=== PATIENT | male | born 1935 | race Caucasian/White ===

== ENCOUNTER → 2016-08-07 | Outpatient (CLI) | payer OTHER ==
[~2016-08-07] MED LIST: ACET-1311 PO; ALBU1AER9 INH; ASPI81TA28 PO; FLM4 PO; GUAI100S6 PO; PRAV20TA PO; TPRSR/25 PO
[2016-08-07 12:48] LABS: ESTIMATED AVERAGE GLUCOSE 103 mg/dl; HA1C FLAG Normal (Normal)
[2016-08-07 12:49] LABS: ALT/SGPT 19 U/L (12-78); BLOOD UREA NITROGEN 20 mg/dl (7-18); BUN/CREATININE RATIO 21.4 (10-20); CALCIUM 9.1 mg/dl (8.5-10.1); CARBON DIOXIDE 30 mmol/L (21-32); CHLORIDE 107 mmol/L (98-107); CHOLESTEROL 111 mg/dl (0-200); CREATININE 0.93 mg/dl (0.60-1.40); GLUCOSE 99 mg/dl (70-99); POTASSIUM 4.1 mmol/L (3.5-5.1); SODIUM 143 mmol/L (136-145)
[2016-08-07 12:52] LABS: ALB/GLOB RATIO 1.1 (0.9-2); ALKALINE PHOSPHATASE 77 U/L (45-117); AST/SGOT 19 U/L (15-37); CHOLESTEROL/HDL RATIO 2.3; HDL CHOLESTEROL 48 mg/dl; LDL CHOLESTEROL CALCULATED 50 mg/dl; TRIGLYCERIDES 63 mg/dl (0-150); VERY LOW DENSITY LIPOPROT CALC 13 mg/dl
== END | disposition home or self-care (01) ==
LOC: C.LABPVFM 08:27
PROVIDERS: ATTEND Family Medicine
DX: I10 Essential (primary) hypertension (principal); I71.9 Aortic aneurysm of unspecified site, without rupture; I42.9 Cardiomyopathy, unspecified; Z79.899 Other long term (current) drug therapy; Z13.1 Encounter for screening for diabetes mellitus

== ENCOUNTER → 2016-11-08 | Outpatient (CLI) | payer OTHER | END | disposition home or self-care (01) | LOC: C.LABPVFM 08:45 | PROVIDERS: ATTEND Urology | DX: R97.20 Elevated prostate specific antigen [PSA] (principal); C61 Malignant neoplasm of prostate ==

== ENCOUNTER → 2017-01-29 | Outpatient (CLI) | payer OTHER ==
[2017-01-29 13:07] LABS: ALT/SGPT 19 U/L (12-78); AST/SGOT 21 U/L (15-37); BLOOD UREA NITROGEN 19 mg/dl (7-18); CALCIUM 9.1 mg/dl (8.5-10.1); CARBON DIOXIDE 28 mmol/L (21-32); CHLORIDE 108 mmol/L (98-107); GLUCOSE 104 mg/dl (70-99); POTASSIUM 4.3 mmol/L (3.5-5.1); SODIUM 141 mmol/L (136-145)
[2017-01-29 13:11] LABS: ALB/GLOB RATIO 1.1 (0.9-2); ALKALINE PHOSPHATASE 73 U/L (45-117); CHOLESTEROL 99 mg/dl (0-200); CHOLESTEROL/HDL RATIO 2.5; HDL CHOLESTEROL 39 mg/dl; LDL CHOLESTEROL CALCULATED 37 mg/dl; TRIGLYCERIDES 114 mg/dl (0-150); VERY LOW DENSITY LIPOPROT CALC 23 mg/dl
== END | disposition home or self-care (01) ==
LOC: C.LABPVFM 08:59
PROVIDERS: ATTEND Family Medicine
DX: I10 Essential (primary) hypertension (principal); E78.5 Hyperlipidemia, unspecified

== ENCOUNTER → 2017-04-11 | Outpatient (CLI) | payer OTHER ==
[2017-04-11 12:56] VITALS: BP 138/68; PULSE 58; TEMP 37; O2SAT 98
--- NOTE | 2017-04-11 16:53 | Radiation Oncology Follow-Up ---
Radiation Oncology Follow-Up Date of Visit Apr 11, 2017. Reason For Visit Annual follow-up Radiation Completion Date Seed Implant 11/17/14, IMRT 12/24/14, ADT Diagnosis (1) Prostate cancer Status: Resolved Onset Date: 03/06/2014 Location: left lobe of the prostate Histology Subtype: adenocarcinoma Stage: ll (B) Permanent Comment: Lower urinary tract symptoms, rising PSA to 10.9 Status post completion of biopsies revealing adenocarcinoma the prostate on [place] 5+4 Initiation of hormonal suppression 04/16/2014 Status post prostate seed implant 11/17/2014 received 7500 cGy Hospitalization for urosepsis Urinary retention requiring self catheterization Status post completion of radiation therapy with IMRT IGRT 12/24/2014 received 5180 cGy Last Edited By: Kenia Anderson on Feb 26, 2015 11:24 Interim History He has been doing well from urinary standpoint. He gave an AUA score of 5. Last year he gave a score of 7. He completed and expanded prostate cancer index composite for clinical practice and gave a score of 0 of 12 in urinary incontinence symptoms. He gave a score of one of 12 in urinary irritation symptoms. He gave a score of 4 of 12 bowel symptoms. He gave a score of 8 of 12 and sexual symptoms. He gave a score of one of 12 and hormonal vitality symptoms. His total was 14 of 60. He takes Flomax once daily. He has been taking this in the morning. Allergies Coded Allergies: No Known Allergies (Verified , 11/17/14) Home Medications Scheduled Aspirin (Aspirin Ec), 81 MG PO DAILY Metoprolol Succinate (Metoprolol Succinate ER), 12.5 MG PO AM Pravastatin (Pravachol ), 40 MG PO DAILY Tamsulosin HCl (Tamsulosin HCl), 0.4 MG PO DAILY Scheduled PRN Acetaminophen (Tylenol), 650 MG PO Q4H PRN for Pain Albuterol Sulfate (Proair Hfa), 1 PUFFS INH QID PRN for SOB/Wheezing Guaifenesin-Codeine (Guaifenesin/Codeine), 5 ML PO Q4 PRN for Cough Review of Systems Gastrointestinal: Symptoms: WNL, Constipation GI Comments: Chronic Constipation - Dulcolax PRN Oral: Symptoms: No Problems Respiratory: Symptoms: WNL, SOB With Exertion Other Respiratory: THOMAS (stairs) Urinary: Symptoms: Nocturia Comments: Nocturia x 3, See AUA & EPIC Skin: Symptoms: No Problems Physical Exam Vital Signs Date Time Temp Pulse Resp B/P (MAP) Pulse Ox O2 Delivery O2 Flow Rate FiO2 04/11/17 12:56 37.0 58 16 138/68 98 Fatigue: None General Appearance: no apparent distress Eyes: normal inspection, EOMI ENT: normal ENT inspection, hearing grossly normal Respiratory/Chest: lungs clear, no respiratory distress, no accessory muscle use Cardiovascular: regular rate, rhythm, no gallop, no murmur Abdomen: non tender, soft Anal / Rectum: Normal sphincter tone. Prostate consistent with seed implant. No rectal masses no rectal bleeding. Extremities: no pedal edema Neurologic/Psychiatric: no motor/sensory deficits, alert, normal mood/affect Skin: warm/dry Pain Management Pain Duration: comes and goes Side: Mid Pain Location: Lower Back Patient Preferred Pain Scale: 0 - 10 Pain Rating (0-10): 0 Pain Management Plan He denies pain therefore does not require pain management. Laboratory Studies Test 01/29/17 09:05 04/11/17 13:16 Sodium Level 141 mmol/L (136-145) Potassium Level 4.3 mmol/L (3.5-5.1) Chloride Level 108 mmol/L (98-107) Carbon Dioxide Level 28 mmol/L (21-32) Anion Gap 5.0 mmol/L (3-11) Blood Urea Nitrogen 19 mg/dl (7-18) Creatinine 1.10 mg/dl (0.60-1.40) Estimated GFR () 73.1 Estimated GFR (Non- 63.1 BUN/Creatinine Ratio 17.0 (10-20) Random Glucose 104 mg/dl (70-99) Calcium Level 9.1 mg/dl (8.5-10.1) Total Bilirubin 0.5 mg/dl (0.2-1) Aspartate Amino Transferase (AST) 21 U/L (15-37) Alanine Aminotransferase (ALT) 19 U/L (12-78) Alkaline Phosphatase 73 U/L (45-117) Total Protein 7.1 gm/dl (6.4-8.2) Albumin 3.7 gm/dl (3.4-5.0) Globulin 3.4 gm/dl (2.5-4.0) Albumin/Globulin Ratio 1.1 (0.9-2) Triglycerides Level 114 mg/dl (0-150) Cholesterol Level 99 mg/dl (0-200) HDL Cholesterol 39 mg/dl LDL Cholesterol, Calculated 37 mg/dl VLDL Cholesterol, Calculated 23 mg/dl Cholesterol/HDL Ratio 2.5 Prostate Specific Antigen < 0.010 ng/ml (0.000-4.000) Assessment & Plan PSA was drawn today prior to examination. He'll be notified as to results. We discussed the Flomax. I've asked him to take this after supper. This may help to improve absorption and have a better affect on his urinary symptoms. Because of the 2 years of hormonal suppression I have recommended that he have a DEXA scan. He previously had a scan in 2013. I've asked him to make an appointment with Dr. Lujan in 6 months. He'll have a recheck PSA at that time. We asked him to return to our office in 1 year. He may call if he has any questions or concerns. Total Time In Follow-Up I spent 20 minutes speaking to the patient performing examination. I spent 15 minutes reviewing information in completing this note. Copy To Wilian Raya M.D.; Crow Lujan MD
== END | disposition home or self-care (01) ==
LOC: C.ONC 12:43
PROVIDERS: ATTEND Physician Assistant Medical
DX: Z08 Encounter for follow-up examination after completed treatment for malignant neoplasm (principal); Z92.3 Personal history of irradiation; Z85.46 Personal history of malignant neoplasm of prostate

== ENCOUNTER → 2017-04-17 | Outpatient (CLI) | payer OTHER | END | disposition home or self-care (01) | LOC: C.MAMM 15:02 | PROVIDERS: ATTEND Physician Assistant Medical | DX: M85.80 Other specified disorders of bone density and structure, unspecified site (principal) ==

== ENCOUNTER → 2017-08-07 | Outpatient (CLI) | payer OTHER ==
[2017-08-07 13:18] LABS: ALBUMIN 3.7 gm/dl (3.4-5.0); ALT/SGPT 24 U/L (12-78); AST/SGOT 24 U/L (15-37); BLOOD UREA NITROGEN 24 mg/dl (7-18); CARBON DIOXIDE 30 mmol/L (21-32); GLUCOSE 102 mg/dl (70-99); POTASSIUM 4.2 mmol/L (3.5-5.1); SODIUM 140 mmol/L (136-145)
[2017-08-07 13:21] LABS: ALKALINE PHOSPHATASE 74 U/L (45-117); CHOLESTEROL 95 mg/dl (0-200); LDL CHOLESTEROL CALCULATED 40 mg/dl; TOTAL PROTEIN 7.3 gm/dl (6.4-8.2)
== END | disposition home or self-care (01) ==
LOC: C.LABPVFM 09:55
PROVIDERS: ATTEND Family Medicine
DX: I10 Essential (primary) hypertension (principal); J44.9 Chronic obstructive pulmonary disease, unspecified; I71.9 Aortic aneurysm of unspecified site, without rupture; R21 Rash and other nonspecific skin eruption; E78.5 Hyperlipidemia, unspecified; M81.0 Age-related osteoporosis without current pathological fracture

== ENCOUNTER 2021-09-22 14:59 | Inpatient (IN) ==
[2021-09-22] MEDS ORDERED: methylPREDNISolone 125 MG/2 ML VIAL IV STA (15:36)
[2021-09-22] MEDS ORDERED: ALBUT/IPRATROP 3MG/0.5MG NEB 3 ML VIAL NEB STA (15:36)
[2021-09-22] MEDS ORDERED: guaiFENesin 600 MG TABCR PO STA (15:36)
[2021-09-22 16:11] LABS: INR 1.3 (0.9-1.1); Prothrombin Time 13.5 Seconds (9.0-12.0)
--- NOTE | 2021-09-22 16:26 | XRay Report ---
XR chest 1V portable CLINICAL HISTORY: Atypical chest pain TECHNIQUE: Single frontal radiograph of the chest was obtained. Comparison: Comparison is made to chest radiograph 11/30/2018 FINDINGS: No lines and tubes are seen. Calcified aortic knob is seen. The lungs are clear. No evidence of pleur al effusion or pneumothorax. Degenerative changes are seen in the thoracic spine. Irregularities in t he left ribs were present in the prior exam and are favored to be chronic, correlation with point ten derness is recommended. IMPRESSION: No acute chest disease. ACT 112: Negative or not required by law. Electronically signed by: Alec Bradley M.D. 09/22/2021 4:25 PM
[2021-09-22 16:29] LABS: Albumin Globulin Ratio 1.7 (0.9-2); BUN Creatinine Ratio 27.3 (10-20); Bilirubin,Total 0.7 mg/dl (0.2-1.0); Creatinine Clr Calc Pharmacy 42.7 ml/min; Est GFR (African American) 70.6 ml/min; Est GFR (Non-African American) 60.9 ml/min; Globulin 2.3 gm/dl (2.5-4.0); Magnesium 2.1 mg/dl (1.7-2.4); Potassium 4.4 mmol/L (3.5-5.1); Total Protein 6.3 gm/dl (6.0-8.3)
[2021-09-22 17:08] LABS: Influenza A virus by PCR Negative (Neg); Influenza B virus by PCR Negative (Neg); RSV by PCR Negative (Neg)
[2021-09-22 17:12] LABS: Basophils # (auto) 0.01 K/uL (0-0.2); Basophils % (auto) 0.3 %; Eosinophils # (auto) 0.01 K/uL (0-0.5); Eosinophils % (auto) 0.3 %; Hematocrit (blood only) 33.7 % (42-52); Hemoglobin 11.2 g/dL (14.0-18.0); Immature Granulocytes # (auto) 0.01 K/uL (0.00-0.02); Immature Granulocytes % (auto) 0.3 %; Lymphocytes # (auto) 0.65 K/uL (1.2-3.4); Lymphocytes % (auto) 20.4 %; Mean Corpuscular Hemoglobin 30.2 pg (25-34); Mean Corpuscular Hgb Conc 33.2 g/dL (32-36); Mean Corpuscular Volume 90.8 fL (80-100); Mean Platelet Volume 10.6 fL (7.4-10.4); Monocytes # (auto) 0.79 K/uL (0.11-0.59); Monocytes % (auto) 24.8 %; Neutrophils # (auto) 1.72 K/uL (1.4-6.5); Neutrophils % (auto) 53.9 %; Platelet Count 103 K/uL (130-400); RDW Coefficient of Variation 13.5 % (11.5-14.5); RDW Standard Deviation 45.1 fL (36.4-46.3); Red Blood Count 3.71 M/uL (4.7-6.1); White Blood Count 3.19 K/uL (4.8-10.8)
[2021-09-22 17:24] LABS: SARS CoV2 RNA(COVID-19) InHosp POSITIVE (Negative)
[2021-09-22] MEDS ORDERED: ACETAMINOPHEN 1,000 MG/100 ML VIAL IV STA (19:51)
[2021-09-22] MEDS ORDERED: SODIUM CHLORIDE 0.9% 500 ML IV ONE (19:51)
--- NOTE | 2021-09-22 20:45 | History & Physical Report ---
Date of Service September 22, 2021 Assessment & Plan (1) Viral upper respiratory tract infection: Plan: 86-year-old man with medical history of hypertension, osteoporosis, CAD, hyperlipidemia, COPD, prostate cancer, and AAA, who presents today with chief complaint of fatigue and general malaise (afebrile) x24 hours in the setting of a COVID-19 outbreak. Viral upper respiratory tract infection -Status post DuoNebs, Solu-Medrol, guaifenesin, Tylenol. COVID-19 positive. Blood cultures pending. * Admit to Obs * IV Solu-Medrol 20 mg twice daily * PT/OT eval/treat * Supportive management: Maintenance IVF Chronic problems-hypertension, osteoporosis, CAD, hyperlipidemia, COPD, prostate cancer, AAA: Continue home regimen. Code: Dispo: Med-Surg FEN/GI: IV NSS, regular diet DVT Prophylaxis: Lovenox 40 mg q24h PT/OT: Ordered (2) COPD (chronic obstructive pulmonary disease): History of Present Illness Chief Complaint: Viral upper respiratory infection Primary Care Provider: [facility] Javier Herrera is a 86-year-old man with medical history of hypertension, osteoporosis, CAD, hyperlipidemia, COPD, prostate cancer, and AAA, who presents today with chief complaint of fatigue and general malaise x24 hours. Patient lives at [facility], where there has been a recent COVID-19 outbreak. In addition to malaise, patient had some confusion. Patient was never hypoxic. ED course: Vitals were mostly stable and within normal limits. However, patient was found to be wheezing, and he received DuoNebs, Solu-Medrol, in addition to guaifenesin, and Tylenol for supportive management. Allergies Allergy/AdvReac Type Severity Reaction Status Date / Time No Known Drug Allergies Allergy Verified 09/22/21 21:38 Home Medications Medication Instructions Recorded Confirmed Type aspirin 81 mg tablet,delayed 81 mg PO QAM 08/06/18 09/22/21 History release acetaminophen 500 mg tablet 500 mg PO Q4H PRN 09/26/18 09/22/21 History pravastatin 40 mg tablet 40 mg PO HS #90 tab 12/02/18 09/22/21 Rx cholecalciferol (vitamin D3) 50 50 mcg PO QAM 09/22/21 09/22/21 History mcg (2,000 unit) tablet (Vitamin D3) ferrous sulfate 325 mg (65 mg 325 mg PO BID 09/22/21 09/22/21 History iron) tablet loperamide 2 mg capsule 2 mg PO Q12 PRN 09/22/21 09/22/21 History lorazepam 0.5 mg tablet 0.25 mg PO BID 09/22/21 09/22/21 History lorazepam 0.5 mg tablet 0.5 mg SUBLINGUAL Q4H PRN 09/22/21 09/22/21 History metoprolol succinate 25 mg 12.5 mg PO QAM 09/22/21 09/22/21 History tablet,extended release 24 hr multivitamin-iron 9 mg-folic acid 1 tab PO QAM 09/22/21 09/22/21 History 400 mcg-calcium and minerals tablet (Therems-M) psyllium husk (with sugar) 3 1 tbsp PO QAM 09/22/21 09/22/21 History gram/7 gram oral powder (Metamucil (with sugar)) risedronate 35 mg tablet (Actonel) 35 mg PO WK 09/22/21 09/22/21 History tamsulosin 0.4 mg capsule 0.4 mg PO DAILY@1700 09/22/21 09/22/21 History Past Med/Surg History Medical History Bilateral lower extremity edema Ground glass opacity present on imaging of lung History of Clostridium difficile colitis Prostate cancer (03/06/14) "Lower urinary tract symptoms, rising PSA to 10.9 Status post completion of biopsies revealing adenocarcinoma the prostate on 03/06/2014 [place] 5+4 Initiation of hormonal suppression 04/16/2014 Status post prostate seed implant 11/17/2014 received 7500 cGy Hospitalization for urosepsis Urinary retention requiring self catheterization Status post completion of radiation therapy with IMRT IGRT 12/24/2014 received 5180 cGy" On 12/31/14 11:03 Kenia Anderson wrote "Lower urinary tract symptoms, rising PSA to 10.9 Status post completion of biopsies revealing adenocarcinoma the prostate on 03/06/2014 [place] 5+4 Initiation of hormonal suppression Status post prostate seed implant 11/17/2014 Hospitalization for urosepsis Urinary retention requiring self catheterization" Prostate cancer Sepsis due to urinary tract infection Surgical History History of hip surgery left, 08/07/2018 S/P AAA repair 2015 S/P cholecystectomy Family History Unknown Coronary heart disease Sister Breast cancer Other Myocardial infarction Denies family history of Ovarian cancer Colorectal cancer Social History Smoking Status: Former smoker Cigarettes Per Day: 50 pack year history; Second Hand Exposure: No; Hx Alcohol Use: No Hx Substance Use: No Preferred Language: Bahamian Communication Ability: Effective Visual Impairment: No Limitations Hearing Ability: Use of Hearing Aid [place] Washing System Operator Required: No Beliefs That Will Affect Care: None marital status: / Current Living Situation: Personal Care Facility Current Living Situation Comment: [place] current occupational status: retired Other Information That Helps Us Care for You: No Feels Safe at Home: Yes Safety Concerns: Feels Safe At This Time Childhood Exposure to Second-Hand Smoke: Yes Dental Care, Regularly: Yes Physical Activity Frequency: 3-4 Times per Week Assistive Devices: Walker Review of Systems Review of Systems: All systems reviewed & are unremarkable except as noted in HPI & below Physical Exam Physical Exam: General: Patient is asleep. When awake, patient appears clearly fatigued and disinterested/not-redirectable. HEENT: Dry oropharynx; no lymphadenopathy; poor dentition. CV: Regular rate and rhythm. Normal S1 and S2. No murmurs gallops or rubs. No pedal edema. Pulmonary: Lungs are clear to auscultation bilaterally. No crackles, rhonchi, or wheezes. Results & Data Results & Data ([facility]) Vital Signs (Past 12 Hours) Vital Signs Temp Pulse Pulse Resp BP BP Pulse Ox 09/22/21 19:00 59 L 20 170/82 H 95 09/22/21 17:00 70 21 140/70 95 09/22/21 15:14 95 09/22/21 15:10 36.9 C 69 23 148/69 H 96 Supervising Physician Co-Signing Physician Notes Attending addendum: I have physically seen this patient, have supervised the medical residents activities, and agree with the H&P unless as otherwise noted. Assessment and Plan: Upper respiratory infection/COVID-19 positive Duonebs every 4 hours while awake and every 2 hours when necessary. Methylprednisolone 20 mg IV twice daily Guaifenesin extended release 1200 mg p.o. twice daily Acetaminophen 650 mg p.o. every 6 hours as needed mild pain or fever Chest x-ray is not suggestive of COVID-19 infection Remaining orders and notations as noted Resident Activity Tracking Resident Involvement: Resident Care Provided Care Provided: Adult Hospital Medicine (1) COPD (chronic obstructive pulmonary disease) COPD type: unspecified COPD Qualified Code(s): J44.9 - Chronic obstructive pulmonary disease, unspecified
--- NOTE | 2021-09-22 21:18 | Emergency Department Note ---
Impression & Plan COVID-19, COPD exacerbation, Weakness ED Provider Note NAME: MARLENE DOUGLAS AGE: 86 SEX: M ARRIVES VIA: Ambulance INFORMANT: Patient, EMS ED PROVIDER(S): Nathanael Paul MD CHIEF COMPLAINT: SOB, weakness PLAN: Disposition: Admit MEDICAL DECISION MAKING: The patient is a pleasant 86-year-old gentleman with a past medical history of COPD, HTN, HLD, BPH who presents to the emergency department from his personal nursing home at [facility] for worsening cough, congestion, malaise and intermittent confusion over the past 24 hours. There is a current outbreak of COVID-19 at his facility. On arrival the patient is uncomfortable no acute distress, afebrile with stable vital signs. He does appear clinically dry. He has bilateral rhonchi and whee zes of the lower lung goldstein. He does have thick productive yellow sputum. EKG without overt acute ischemia. Chest x-ray negative for acute cardiopulmonary process WBC 3.1K nonspecific. H/H 11.2/33.7 decreased from recent though proximate to prior range of values. Platelets 103K decreased from recent. Chemistry without metabolic acidosis. BUN/> 20 consistent with the patient's clinically dry appearance. High-sensitivity troponin 7.2, within normal limits. Lipase not elevated. Procalcitonin is not elevated. Patient's COVID-19 PCR was positive. Influenza and RSV PCR's were negative. Upon reevaluation the patient did appear to breathe better following Solu-Medrol, guaifenesin and DuoNeb for the patient's bronchospasm in the setting of a COPD. However still with significant malaise/weakness. Thus, reasonable to admit the patient for further supportive care. Triage Nursing notes reviewed and agree them. Prior medical records reviewed Vital Signs: reviewed and remarkable for no significant abnormalities Differential diagnosis: Reactive airway disease, pneumonia, pneumothorax, COPD, CHF, infections, cardiac ischemia, pulmonary embolism, musculoskeletal, gastrointestinal, as well as other pathologies. ER treatment provided: See below. Diagnostics interpreted by me: ECG: Normal sinus rhythm, 60 bpm, no ectopy, no overt ST elevation or depression, QTC 404, QRS 92. Cardiac Monitoring: An order for continuous cardiac monitoring was placed and demonstrated Normal sinus rhythm, 60 bpm, no ectopy. Laboratory studies: See below Imaging studies: See below Consultation(s): Case was discussed with Dr. Gonsales [facility] admitting resident with RAZIA Kaye hospitalist, who will evaluate the patient for admission. HPI: The patient is a pleasant 86-year-old gentleman with a past medical history of COPD, HTN, HLD, BPH who presents to the emergency department from his personal nursing home at [facility] for worsening cough, congestion, malaise and intermittent confusion over the past 24 hours. There is a current outbreak of COVID-19 at his facility. ROS: See above HPI for pertinent positives & negatives. A total of 10 systems reviewed and were otherwise negative. VITALS:See Below PHYSICAL EXAMINATION: GENERAL: Awake, alert, ill-appearing, in no distress HENT: Normocephalic, atraumatic. Oropharynx with dry mucous membranes and otherwise unremarkable. EYES: Normal conjunctiva. Sclera non-icteric. NECK: Supple. No nuchal rigidity. FROM. No JVD. RESPIRATORY: Bilateral rhonchi and wheezes of the lower lung goldstein CARDIAC: Regular rate, normal rhythm. Extremities warm and well perfused. Pulses equal. ABDOMEN: Soft, non-distended. No tenderness to palpation. No rebound or guarding. No masses. RECTAL: Deferred. MUSCULOSKELETAL: Chest examination reveals no tenderness. The back is symmetrical on inspection without obvious abnormality. There is no CVA tenderness to palpation. No joint edema. LOWER EXTREMITIES: Calves are equal size bilaterally and non-tender. No edema. No discoloration. NEURO: Normal sensorium. No sensory or motor deficits noted. SKIN: No rash or jaundice noted. Nathanael Paul MD Past Med/Surg History Medical History Bilateral lower extremity edema Ground glass opacity present on imaging of lung History of Clostridium difficile colitis Prostate cancer (03/06/14) "Lower urinary tract symptoms, rising PSA to 10.9 Status post completion of biopsies revealing adenocarcinoma the prostate on 03/06/2014 [place] 5+4 Initiation of hormonal suppression 04/16/2014 Status post prostate seed implant 11/17/2014 received 7500 cGy Hospitalization for urosepsis Urinary retention requiring self catheterization Status post completion of radiation therapy with IMRT IGRT 12/24/2014 received 5180 cGy" On 12/31/14 11:03 Kenia Anderson wrote "Lower urinary tract symptoms, rising PSA to 10.9 Status post completion of biopsies revealing adenocarcinoma the prostate on 03/06/2014 [place] 5+4 Initiation of hormonal suppression Status post prostate seed implant 11/17/2014 Hospitalization for urosepsis Urinary retention requiring self catheterization" Prostate cancer Sepsis due to urinary tract infection Surgical History History of hip surgery left, 08/07/2018 S/P AAA repair 2015 S/P cholecystectomy Family History Unknown Coronary heart disease Sister Breast cancer Other Myocardial infarction Denies family history of Ovarian cancer Colorectal cancer Social History Smoking Status: Former smoker Cigarettes Per Day: 50 pack year history; Second Hand Exposure: No; Hx Alcohol Use: No Hx Substance Use: No Preferred Language: [place] Communication Ability: Effective Visual Impairment: No Limitations Hearing Ability: Use of Hearing Aid Case Loader Operator Required: No Beliefs That Will Affect Care: None marital status: / Current Living Situation: Alone current occupational status: retired Feels Safe at Home: Yes Childhood Exposure to Second-Hand Smoke: Yes Dental Care, Regularly: Yes Physical Activity Frequency: 3-4 Times per Week Assistive Devices: Denture - Lower and Glasses Allergies Allergies Allergy/AdvReac Type Severity Reaction Status Date / Time No Known Drug Allergies Allergy Verified 09/22/21 21:38 Home Meds Home Medications Medication Instructions Recorded Confirmed aspirin 81 mg tablet,delayed 81 mg PO QAM 08/06/18 09/22/21 release acetaminophen 500 mg tablet 500 mg PO Q4H PRN 09/26/18 09/22/21 cholecalciferol (vitamin D3) 50 50 mcg PO QAM 09/22/21 09/22/21 mcg (2,000 unit) tablet (Vitamin D3) ferrous sulfate 325 mg (65 mg 325 mg PO BID 09/22/21 09/22/21 iron) tablet loperamide 2 mg capsule 2 mg PO Q12 PRN 09/22/21 09/22/21 lorazepam 0.5 mg tablet 0.25 mg PO BID 09/22/21 09/22/21 lorazepam 0.5 mg tablet 0.5 mg SUBLINGUAL Q4H PRN 09/22/21 09/22/21 metoprolol succinate 25 mg 12.5 mg PO QAM 09/22/21 09/22/21 tablet,extended release 24 hr multivitamin-iron 9 mg-folic acid 1 tab PO QAM 09/22/21 09/22/21 400 mcg-calcium and minerals tablet (Therems-M) psyllium husk (with sugar) 3 1 tbsp PO QAM 09/22/21 09/22/21 gram/7 gram oral powder (Metamucil (with sugar)) risedronate 35 mg tablet (Actonel) 35 mg PO WK 09/22/21 09/22/21 tamsulosin 0.4 mg capsule 0.4 mg PO DAILY@1700 09/22/21 09/22/21 Previous Rx's Medication Instructions Recorded pravastatin 40 mg tablet 40 mg PO HS #90 tab 12/02/18 Results & Data (ED) Vital Signs Vital Signs - 24 hr 09/22/21 15:10 09/22/21 15:14 09/22/21 17:00 Temperature 36.9 C Temperature Source Oral Pulse Rate 69 Pulse Rate [Apical] 70 Pulse Rhythm [Apical] Regular Pulse Strength [Apical] Normal Respiratory Rate 23 21 Respiratory Effort / Characteristics Non-Labored Respiratory Depth Normal Respiratory Pattern Regular Blood Pressure 148/69 H Blood Pressure [Right Arm] 140/70 Blood Pressure Mean 95 Blood Pressure Mean [Right Arm] 93 Pulse Oximetry 96 95 95 Oxygen Delivery Method Room Air Room Air Room Air Sepsis Recent Fever Within 48 Hours No Sepsis New/Unexplained Change in Mental Status Yes Sepsis Action Taken by Nursing No Action Required 09/22/21 19:00 Temperature Temperature Source Pulse Rate Pulse Rate [Apical] 59 L Pulse Rhythm [Apical] Regular Pulse Strength [Apical] Respiratory Rate 20 Respiratory Effort / Characteristics Non-Labored Respiratory Depth Normal Respiratory Pattern Blood Pressure Blood Pressure [Right Arm] 170/82 H Blood Pressure Mean Blood Pressure Mean [Right Arm] 111 Pulse Oximetry 95 Oxygen Delivery Method Room Air Sepsis Recent Fever Within 48 Hours Sepsis New/Unexplained Change in Mental Status Sepsis Action Taken by Nursing Laboratory Data Attestation: I reviewed the patient's lab results. Result diagrams: 09/22/21 16:44 09/22/21 15:30 Lab Results 09/22/21 09/22/21 09/22/21 Range/Units 15:30 15:30 15:30 WBC Cancelled RBC Cancelled Hgb Cancelled Hct Cancelled MCV Cancelled MCH Cancelled MCHC Cancelled RDW Std Deviation Cancelled RDW Coeff of Livier Cancelled Plt Count Cancelled MPV Cancelled Immature Gran % (Auto) Cancelled Neut % (Auto) Cancelled Lymph % (Auto) Cancelled [place] % (Auto) Cancelled Eos % (Auto) Cancelled Baso % (Auto) Cancelled Neut # (Auto) Cancelled Lymph # (Auto) Cancelled [place] # (Auto) Cancelled Eos # (Auto) Cancelled Baso # (Auto) Cancelled Immature Gran # (Auto) Cancelled Absolute Nucleated RBC Cancelled Nucleated RBC % (auto) Cancelled Neutrophils % (Manual) Cancelled Band Neutrophils % Cancelled Lymphocytes % (Manual) Cancelled Prolymphocyte % Cancelled Reactive Lymphs % (Man) Cancelled Monocytes % (Manual) Cancelled Eosinophils % (Manual) Cancelled Basophils % (Manual) Cancelled Metamyelocytes % (Man) Cancelled Myelocytes % (Man) Cancelled Promyelocytes % (Man) Cancelled Blast Cells % (Manual) Cancelled Plasma Cell % (Manual) Cancelled Other Cells % Cancelled Nucleated RBC % Cancelled Neutrophils # (Manual) Cancelled Band Neutrophils # Cancelled Total Absolute Neuts Cancelled Lymphocytes # (Manual) Cancelled Prolymphocyte # Cancelled Reactive Lymphs # Cancelled Total Abs Lymphocytes Cancelled Monocytes # (Manual) Cancelled Eosinophils # (Manual) Cancelled Basophils # (Manual) Cancelled Metamyelocytes # (Man) Cancelled Myelocytes # (Manual) Cancelled Promyelocytes # (Man) Cancelled Blast Cells # (Man) Cancelled Plasma Cell # (Manual) Cancelled Other Cells # Cancelled Nucleated RBCs # (Man) Cancelled Hypersegmented Neuts Cancelled Hyposegmented Neuts Cancelled Hypogranular Neuts Cancelled Large Granular Lymphs Cancelled # Lrg Granular Lymphs Cancelled Hairy Cells Cancelled Smudge Cells Cancelled Toxic Granulation Cancelled Toxic Vacuolation Cancelled Dohle Bodies Cancelled Angel Rods Cancelled Platelet Estimate Cancelled Hypogranular Platelets Cancelled Clumped Platelets Cancelled Giant Platelets Cancelled Platelet Satelliting Cancelled RBC Morphology Cancelled Polychromasia Cancelled Hypochromasia Cancelled Poikilocytosis Cancelled Basophilic Stippling Cancelled Anisocytosis Cancelled Microcytosis Cancelled Macrocytosis Cancelled Spherocytes Cancelled Pappenheimer Bodies Cancelled Sickle Cells Cancelled Target Cells Cancelled Tear Drop Cells Cancelled Ovalocytes Cancelled Stomatocytes Cancelled Chandler-Florala Bodies Cancelled Echinocytes Cancelled Acanthocytes (Spur) Cancelled Rouleaux Cancelled RBC Agglutinates Cancelled Schistocytes Cancelled RBC Morph Comment Cancelled Sezary Cell Cancelled PT (9.0-12.0) Seconds INR (0.9-1.1) Sodium 135 L (136-145) mmol/L Potassium 4.4 (3.5-5.1) mmol/L Chloride 101 (98-107) mmol/L Carbon Dioxide 28 (21-32) mmol/L Anion Gap 6 (3-11) BUN 30 H (6-23) mg/dl Creatinine 1.10 (0.6-1.4) mg/dl Est Cr Clr Drug Dosing 42.7 ml/min Est GFR ( Amer) 70.6 ml/min Est GFR (Non-Af Amer) 60.9 ml/min BUN/Creatinine Ratio 27.3 H (10-20) Glucose 93 (70-99(Fasting)) mg/dl Lactate (0.4-2.0) mmol/L Calcium 9.0 (8.5-10.1) mg/dl Magnesium 2.1 (1.7-2.4) mg/dl Total Bilirubin 0.7 (0.2-1.0) mg/dl AST 28 (13-39) U/L ALT 12 (7-52) U/L Alkaline Phosphatase 34 (34-104) U/L Troponin I High Sens 7.2 (0-20) pg/ml B-Natriuretic Peptide Total Protein 6.3 (6.0-8.3) gm/dl Albumin 4.0 (3.4-5.0) gm/dl Globulin 2.3 L (2.5-4.0) gm/dl Albumin/Globulin Ratio 1.7 (0.9-2) Lipase 13 (11-82) U/L Procalcitonin (0-0.5) ng/ml SARS-CoV-2 (PCR) (Negative) Influenza Type A (PCR) (Neg) Influenza Type B (PCR) (Neg) RSV (RT-PCR) (Neg) 09/22/21 09/22/21 09/22/21 Range/Units 15:30 15:30 15:30 WBC RBC Hgb Hct MCV MCH MCHC RDW Std Deviation RDW Coeff of Livier Plt Count MPV Immature Gran % (Auto) Neut % (Auto) Lymph % (Auto) [place] % (Auto) Eos % (Auto) Baso % (Auto) Neut # (Auto) Lymph # (Auto) [place] # (Auto) Eos # (Auto) Baso # (Auto) Immature Gran # (Auto) Absolute Nucleated RBC Nucleated RBC % (auto) Neutrophils % (Manual) Band Neutrophils % Lymphocytes % (Manual) Prolymphocyte % Reactive Lymphs % (Man) Monocytes % (Manual) Eosinophils % (Manual) Basophils % (Manual) Metamyelocytes % (Man) Myelocytes % (Man) Promyelocytes % (Man) Blast Cells % (Manual) Plasma Cell % (Manual) Other Cells % Nucleated RBC % Neutrophils # (Manual) Band Neutrophils # Total Absolute Neuts Lymphocytes # (Manual) Prolymphocyte # Reactive Lymphs # Total Abs Lymphocytes Monocytes # (Manual) Eosinophils # (Manual) Basophils # (Manual) Metamyelocytes # (Man) Myelocytes # (Manual) Promyelocytes # (Man) Blast Cells # (Man) Plasma Cell # (Manual) Other Cells # Nucleated RBCs # (Man) Hypersegmented Neuts Hyposegmented Neuts Hypogranular Neuts Large Granular Lymphs # Lrg Granular Lymphs Hairy Cells Smudge Cells Toxic Granulation Toxic Vacuolation Dohle Bodies Angel Rods Platelet Estimate Hypogranular Platelets Clumped Platelets Giant Platelets Platelet Satelliting RBC Morphology Polychromasia Hypochromasia Poikilocytosis Basophilic Stippling Anisocytosis Microcytosis Macrocytosis Spherocytes Pappenheimer Bodies Sickle Cells Target Cells Tear Drop Cells Ovalocytes Stomatocytes Chandler-Florala Bodies Echinocytes Acanthocytes (Spur) Rouleaux RBC Agglutinates Schistocytes RBC Morph Comment Sezary Cell PT 13.5 H (9.0-12.0) Seconds INR 1.3 H (0.9-1.1) Sodium (136-145) mmol/L Potassium (3.5-5.1) mmol/L Chloride (98-107) mmol/L Carbon Dioxide (21-32) mmol/L Anion Gap (3-11) BUN (6-23) mg/dl Creatinine (0.6-1.4) mg/dl Est Cr Clr Drug Dosing ml/min Est GFR ( Amer) ml/min Est GFR (Non-Af Amer) ml/min BUN/Creatinine Ratio (10-20) Glucose (70-99(Fasting)) mg/dl Lactate (0.4-2.0) mmol/L Calcium (8.5-10.1) mg/dl Magnesium (1.7-2.4) mg/dl Total Bilirubin (0.2-1.0) mg/dl AST (13-39) U/L ALT (7-52) U/L Alkaline Phosphatase (34-104) U/L Troponin I High Sens (0-20) pg/ml B-Natriuretic Peptide Cancelled Total Protein (6.0-8.3) gm/dl Albumin (3.4-5.0) gm/dl Globulin (2.5-4.0) gm/dl Albumin/Globulin Ratio (0.9-2) Lipase (11-82) U/L Procalcitonin 0.07 (0-0.5) ng/ml SARS-CoV-2 (PCR) (Negative) Influenza Type A (PCR) (Neg) Influenza Type B (PCR) (Neg) RSV (RT-PCR) (Neg) 09/22/21 09/22/21 09/22/21 Range/Units 15:30 16:44 16:53 WBC 3.19 L RBC 3.71 L Hgb 11.2 L Hct 33.7 L MCV 90.8 MCH 30.2 MCHC 33.2 RDW Std Deviation 45.1 RDW Coeff of Livier 13.5 Plt Count 103 L MPV 10.6 H Immature Gran % (Auto) 0.3 Neut % (Auto) 53.9 Lymph % (Auto) 20.4 [place] % (Auto) 24.8 Eos % (Auto) 0.3 Baso % (Auto) 0.3 Neut # (Auto) 1.72 Lymph # (Auto) 0.65 L [place] # (Auto) 0.79 H Eos # (Auto) 0.01 Baso # (Auto) 0.01 Immature Gran # (Auto) 0.01 Absolute Nucleated RBC Nucleated RBC % (auto) Neutrophils % (Manual) Band Neutrophils % Lymphocytes % (Manual) Prolymphocyte % Reactive Lymphs % (Man) Monocytes % (Manual) Eosinophils % (Manual) Basophils % (Manual) Metamyelocytes % (Man) Myelocytes % (Man) Promyelocytes % (Man) Blast Cells % (Manual) Plasma Cell % (Manual) Other Cells % Nucleated RBC % Neutrophils # (Manual) Band Neutrophils # Total Absolute Neuts Lymphocytes # (Manual) Prolymphocyte # Reactive Lymphs # Total Abs Lymphocytes Monocytes # (Manual) Eosinophils # (Manual) Basophils # (Manual) Metamyelocytes # (Man) Myelocytes # (Manual) Promyelocytes # (Man) Blast Cells # (Man) Plasma Cell # (Manual) Other Cells # Nucleated RBCs # (Man) Hypersegmented Neuts Hyposegmented Neuts Hypogranular Neuts Large Granular Lymphs # Lrg Granular Lymphs Hairy Cells Smudge Cells Toxic Granulation Toxic Vacuolation Dohle Bodies Angel Rods Platelet Estimate Hypogranular Platelets Clumped Platelets Giant Platelets Platelet Satelliting RBC Morphology Polychromasia Hypochromasia Poikilocytosis Basophilic Stippling Anisocytosis Microcytosis Macrocytosis Spherocytes Pappenheimer Bodies Sickle Cells Target Cells Tear Drop Cells Ovalocytes Stomatocytes Chandler-Florala Bodies Echinocytes Acanthocytes (Spur) Rouleaux RBC Agglutinates Schistocytes RBC Morph Comment Sezary Cell PT (9.0-12.0) Seconds INR (0.9-1.1) Sodium (136-145) mmol/L Potassium (3.5-5.1) mmol/L Chloride (98-107) mmol/L Carbon Dioxide (21-32) mmol/L Anion Gap (3-11) BUN (6-23) mg/dl Creatinine (0.6-1.4) mg/dl Est Cr Clr Drug Dosing ml/min Est GFR ( Amer) ml/min Est GFR (Non-Af Amer) ml/min BUN/Creatinine Ratio (10-20) Glucose (70-99(Fasting)) mg/dl Lactate 1.0 (0.4-2.0) mmol/L Calcium (8.5-10.1) mg/dl Magnesium (1.7-2.4) mg/dl Total Bilirubin (0.2-1.0) mg/dl AST (13-39) U/L ALT (7-52) U/L Alkaline Phosphatase (34-104) U/L Troponin I High Sens (0-20) pg/ml B-Natriuretic Peptide Total Protein (6.0-8.3) gm/dl Albumin (3.4-5.0) gm/dl Globulin (2.5-4.0) gm/dl Albumin/Globulin Ratio (0.9-2) Lipase (11-82) U/L Procalcitonin (0-0.5) ng/ml SARS-CoV-2 (PCR) POSITIVE A* (Negative) Influenza Type A (PCR) Negative (Neg) Influenza Type B (PCR) Negative (Neg) RSV (RT-PCR) Negative (Neg) 09/22/21 Range/Units 16:53 WBC RBC Hgb Hct MCV MCH MCHC RDW Std Deviation RDW Coeff of Livier Plt Count MPV Immature Gran % (Auto) Neut % (Auto) Lymph % (Auto) [place] % (Auto) Eos % (Auto) Baso % (Auto) Neut # (Auto) Lymph # (Auto) [place] # (Auto) Eos # (Auto) Baso # (Auto) Immature Gran # (Auto) Absolute Nucleated RBC Nucleated RBC % (auto) Neutrophils % (Manual) Band Neutrophils % Lymphocytes % (Manual) Prolymphocyte % Reactive Lymphs % (Man) Monocytes % (Manual) Eosinophils % (Manual) Basophils % (Manual) Metamyelocytes % (Man) Myelocytes % (Man) Promyelocytes % (Man) Blast Cells % (Manual) Plasma Cell % (Manual) Other Cells % Nucleated RBC % Neutrophils # (Manual) Band Neutrophils # Total Absolute Neuts Lymphocytes # (Manual) Prolymphocyte # Reactive Lymphs # Total Abs Lymphocytes Monocytes # (Manual) Eosinophils # (Manual) Basophils # (Manual) Metamyelocytes # (Man) Myelocytes # (Manual) Promyelocytes # (Man) Blast Cells # (Man) Plasma Cell # (Manual) Other Cells # Nucleated RBCs # (Man) Hypersegmented Neuts Hyposegmented Neuts Hypogranular Neuts Large Granular Lymphs # Lrg Granular Lymphs Hairy Cells Smudge Cells Toxic Granulation Toxic Vacuolation Dohle Bodies Angel Rods Platelet Estimate Hypogranular Platelets Clumped Platelets Giant Platelets Platelet Satelliting RBC Morphology Polychromasia Hypochromasia Poikilocytosis Basophilic Stippling Anisocytosis Microcytosis Macrocytosis Spherocytes Pappenheimer Bodies Sickle Cells Target Cells Tear Drop Cells Ovalocytes Stomatocytes Chandler-Florala Bodies Echinocytes Acanthocytes (Spur) Rouleaux RBC Agglutinates Schistocytes RBC Morph Comment Sezary Cell PT (9.0-12.0) Seconds INR (0.9-1.1) Sodium (136-145) mmol/L Potassium (3.5-5.1) mmol/L Chloride (98-107) mmol/L Carbon Dioxide (21-32) mmol/L Anion Gap (3-11) BUN (6-23) mg/dl Creatinine (0.6-1.4) mg/dl Est Cr Clr Drug Dosing ml/min Est GFR ( Amer) ml/min Est GFR (Non-Af Amer) ml/min BUN/Creatinine Ratio (10-20) Glucose (70-99(Fasting)) mg/dl Lactate (0.4-2.0) mmol/L Calcium (8.5-10.1) mg/dl Magnesium (1.7-2.4) mg/dl Total Bilirubin (0.2-1.0) mg/dl AST (13-39) U/L ALT (7-52) U/L Alkaline Phosphatase (34-104) U/L Troponin I High Sens (0-20) pg/ml B-Natriuretic Peptide 71 Total Protein (6.0-8.3) gm/dl Albumin (3.4-5.0) gm/dl Globulin (2.5-4.0) gm/dl Albumin/Globulin Ratio (0.9-2) Lipase (11-82) U/L Procalcitonin (0-0.5) ng/ml SARS-CoV-2 (PCR) (Negative) Influenza Type A (PCR) (Neg) Influenza Type B (PCR) (Neg) RSV (RT-PCR) (Neg) Administered Medications Discontinued Medications Albuterol (Albut/Ipratrop 3mg/0.5mg Neb 3 Ml Vial) 3 ml NEB NOW STA; Protocol Stop: 09/22/21 15:37 Last Admin: 09/22/21 16:59 Dose: 3 ml Documented by: [id number] Guaifenesin (Guaifenesin 600 Mg Tabcr) 600 mg PO NOW STA Stop: 09/22/21 15:37 Last Admin: 09/22/21 16:59 Dose: 600 mg Documented by: [id number] Acetaminophen (Ofirmev) 1,000 mg in 100 mls @ 400 mls/hr IV NOW STA Stop: 09/22/21 20:05 Last Admin: 09/22/21 20:16 Dose: 400 mls/hr Documented by: [id number] Sodium Chloride (Nss) 500 mls @ 999 mls/hr IV .Q31M ONE Stop: 09/22/21 20:21 Last Admin: 09/22/21 20:17 Dose: 999 mls/hr Documented by: [id number] Methylprednisolone (Methylprednisolone 125 Mg/2 Ml Vial) 125 mg IV NOW STA Stop: 09/22/21 15:37 Last Admin: 09/22/21 16:59 Dose: 125 mg Documented by: [id number] Imaging Data Radiologist's Impression: Chest X-Ray 09/22/21 15:14 XR chest 1V portable CLINICAL HISTORY: Atypical chest pain TECHNIQUE: Single frontal radiograph of the chest was obtained. Comparison: Comparison is made to chest radiograph 11/30/2018 FINDINGS: No lines and tubes are seen. Calcified aortic knob is seen. The lungs are clear. No evidence of pleural effusion or pneumothorax. Degenerative changes are seen in the thoracic spine. Irregularities in the left ribs were present in the prior exam and are favored to be chronic, correlation with point tenderness is recommended. IMPRESSION: No acute chest disease. ACT 112: Negative or not required by law. Electronically signed by: Alec Bradley M.D. 09/22/2021 4:25 PM Discharge Plan Visit Data Chief Complaint: Shortness of Breath/Dyspnea ED Provider: Nathanael Paul Discharge Problem: COVID-19, COPD exacerbation, Weakness Forms Stand Alone Forms: My [facility] [employer] Prescriptions Prescriptions: No Action pravastatin 40 mg tablet 40 mg PO HS Qty: 90 RF: 1 acetaminophen 500 mg Tablet 500 mg PO Q4H PRN (Reason: Pain) RF: 0 aspirin 81 mg Tablet,Delayed Release (Dr/Ec) 81 mg PO QAM RF: 0 loperamide [Imodium] 2 mg Capsule 2 mg PO Q12 PRN (Reason: Diarrhea) RF: 0 lorazepam 0.5 mg tablet 0.25 mg PO BID RF: 0 lorazepam 0.5 mg tablet 0.5 mg sublingual Q4H PRN (Reason: Anxiety) RF: 0 ferrous sulfate 325 mg (65 mg iron) Tablet 325 mg PO BID RF: 0 cholecalciferol (vitamin D3) [Vitamin D3] 50 mcg (2,000 unit) Tablet 50 mcg PO QAM RF: 0 Therems-M 9 mg iron-400 mcg Tablet 1 tab PO QAM RF: 0 Metamucil (with sugar) 3 gram/7 gram Powder 1 tbsp PO QAM RF: 0 tamsulosin 0.4 mg capsule 0.4 mg PO DAILY@1700 RF: 0 metoprolol succinate 25 mg tablet extended release 24 hr 12.5 mg PO QAM RF: 0 risedronate [Actonel] 35 mg tablet 35 mg PO WK RF: 0 [facility]errals [facility] -
[2021-09-23] MEDS ORDERED: LORazepam 0.5 MG TAB SL PRN (00:25)
[2021-09-23] MEDS ORDERED: LOPERAMIDE HCL 2 MG CAP PO PRN (00:25)
[2021-09-23] MEDS ORDERED: POLYETHYLENE (MIRALAX) 17 GM PACK PO PRN (00:25)
[2021-09-23] MEDS ORDERED: ACETAMINOPHEN 500 MG TAB PO PRN (00:25)
[2021-09-23] MEDS: SODIUM CHLORIDE 0.9% 1000ML 1,000 ML IV SCH ×2 (00:42→07:11)
[2021-09-23] MEDS ORDERED: methylPREDNISolone 20 MG in SYRINGE 0 ML IV SCH (06:00)
[2021-09-23] MEDS: CEROVITE ADV FORMULA TAB PO SCH (07:08)
[2021-09-23] MEDS: FERROUS SULFATE 325 MG TAB PO SCH ×2 (07:08→20:48)
[2021-09-23] MEDS: PSYLLIUM or GUAR GUM FIBER POWDER PACKET PO SCH (07:08)
[2021-09-23] MEDS: ASPIRIN 81 MG ECTAB PO SCH (07:11)
[2021-09-23] MEDS: CHOLECALCIFEROL 1,000 UNITS 25 MCG TAB PO SCH (07:11)
[2021-09-23] MEDS ORDERED: LORazepam 0.5 MG TAB PO PRN (09:00)
[2021-09-23] MEDS ORDERED: METOPROLOL SUCC 25MG EXT REL TAB PO SCH (09:00)
[2021-09-23] MEDS ORDERED: ENOXAPARIN INJ 30 MG/0.3 ML SYR SQ SCH (09:00)
[2021-09-23] MEDS: dexAMETHasone 6 MG in SYRINGE 0 ML IV SCH (11:00)
--- NOTE | 2021-09-23 14:28 | Hospitalist Progress Note ---
Date of Service September 23, 2021 Assessment & Plan (1) Viral upper respiratory tract infection: Plan: 86-year-old man with medical history of hypertension, osteoporosis, CAD, hyperlipidemia, COPD, prostate cancer, and AAA, who presents today with chief complaint of fatigue and general malaise (afebrile) x24 hours in the setting of a COVID-19 outbreak. COVID-19 pneumoniarecent outbreak at [place] Continue DuoNebs, guaifenesin, Tylenol 2 L oxygen requirement on the floor, no home requirement Steroids converted to dexamethasone 6 mg daily, if worsening low threshold to increase to twice daily No signs of superimposed bacterial pneumonia at this time. Blood cultures on admission pending. Patient with asymptomatic bradycardia as noted below Tolerating p.o., IV fluids discontinued CXR: No lines and tubes are seen. Calcified aortic knob is seen. The lungs are clear. No evidence of pleural effusion or pneumothorax. Degenerative changes are seen in the thoracic spine. Irregularities in the left ribs were present in the prior exam and are favored to be chronic, correlation with point tenderness is recommended. Creatinine at baseline AST/ALT normal Troponin normal Procalcitonin normal CRP pending COPD Continue COVID treatment above Steroid treatments as noted previously We will treat for potential superimposed acute COPD exacerbation with viral pneumonia with 3-day course of azithromycin. No QT prolongation on EKG PFT 02/2019: Moderate obstruction. FEV1 57% predicted, FVC 70% predicted, ratio 81%, Last note from 2019, patient was trialed on Spiriva at that time and was to have 6-month follow-up. He reports he is sometimes used an inhaler when sick, no recent inhaler use but is a poor historian. Will continue Spiriva. 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 He reports he feels much weaker than normal. Is more short of breath than normal. Has a nonproductive cough. Denies chest pain, chest pressure. Has a reduced appetite, is eating a cookie at time of visit. Is on 2 L nasal cannula, reports no home requirement. Reports there has been an outbreak of COVID at his [place] facility. Reports he has a poor memory and is not sure about some medications. Denies fever/chills at time of assessment and overnight. Did feel a little cold last night. No sweats. Review of Systems Review of Systems: All systems reviewed & are unremarkable except as noted in Subjective Physical Exam Physical Exam: General: A&Ox3. NAD. Cooperative. HEENT: Atraumatic, normocephalic. Pulm: Diminished, scattered expiratory wheezes without crackles/rales symmetrical chest rise. No increase in work of breathing. No respiratory distress. Cardiac: Regular, bradycardic, without murmur. radial pulses intact and symmetrical. Abdominal: Nontender, nondistended, soft. BS present. Extremities: Warm, dry without pitting edema Results & Data Results & Data ([facility]) Vital Signs (Past 12 Hours) Vital Signs Temp Pulse Resp BP Pulse Ox 09/23/21 08:43 55 L 98 09/23/21 08:05 38 L 97 09/23/21 07:07 36.3 C L 46 L 16 159/72 H 97 09/23/21 04:53 40 L 96 PG Care Time/CCT Total # of Minutes Spent Total Time Spent with Patient: Total time spent is greater than 50% in coordination of care (as documented) at patient's floor/unit and/or counseling patient: Coding Level of Care Code 45660 Subseq Hosp Care Lvl 3 Diagnoses Viral upper respiratory tract infection J06.9 COPD (chronic obstructive pulmonary disease) J44.9 COPD type: unspecified COPD (1) COPD (chronic obstructive pulmonary disease) COPD type: unspecified COPD Qualified Code(s): J44.9 - Chronic obstructive pulmonary disease, unspecified
[2021-09-23] MEDS ORDERED: ALBUT/IPRATROP 3MG/0.5MG NEB 3 ML VIAL NEB PRN (14:41)
[2021-09-23] MEDS: AZITHROMYCIN 250 MG TAB PO SCH (17:01)
[2021-09-23] MEDS: TAMSULOSIN HCL 0.4 MG CAP PO SCH (17:01)
[2021-09-23] MEDS: ENOXAPARIN INJ 40 MG/0.4 ML SYR SQ SCH (17:02)
--- NOTE | 2021-09-23 19:33 | Electrocardiogram Report ---
Test Reason : Blood Pressure : / mmHG Vent. Rate : 068 BPM Atrial Rate : 068 BPM P-R Int : 162 ms QRS Dur : 092 ms QT Int : 380 ms P-R-T Axes : 062 006 033 degrees QTc Int : 404 ms Normal sinus rhythm Normal ECG When compared with ECG of 26-SEP-2018 11:50, No significant change was found Confirmed by Matty Lopez ([id number]) on 09/23/2021 7:33:14 PM Referred By: ED Confirmed By:Matty Lopez
[2021-09-23] MEDS: PRAVASTATIN SOD 40 MG TAB PO SCH (20:48)
[2021-09-24] MEDS: ENOXAPARIN INJ 40 MG/0.4 ML SYR SQ SCH ×2 (03:01→12:54)
--- NOTE | 2021-09-24 05:08 | Billing Data ---
Date of Service September 24, 2021 Coding Level of Care Code 56116 Initial Inpt Care Lvl 2
[2021-09-24 06:23] LABS: Hematocrit (blood only) 34.5 % (42-52); Hemoglobin 11.7 g/dL (14.0-18.0); Immature Granulocytes # (auto) 0.01 K/uL (0.00-0.02); Immature Granulocytes % (auto) 0.2 %; Lymphocytes % (auto) 24.4 %; Mean Corpuscular Hemoglobin 30.5 pg (25-34); Mean Corpuscular Hgb Conc 33.9 g/dL (32-36); Mean Corpuscular Volume 89.8 fL (80-100); Mean Platelet Volume 10.2 fL (7.4-10.4); Monocytes # (auto) 0.76 K/uL (0.11-0.59); Monocytes % (auto) 14.3 %; Neutrophils # (auto) 3.26 K/uL (1.4-6.5); Neutrophils % (auto) 61.1 %; Platelet Count 120 K/uL (130-400); RDW Coefficient of Variation 13.5 % (11.5-14.5); RDW Standard Deviation 44.3 fL (36.4-46.3); Red Blood Count 3.84 M/uL (4.7-6.1); White Blood Count 5.33 K/uL (4.8-10.8)
[2021-09-24 06:42] LABS: BUN Creatinine Ratio 28.7 (10-20); C Reactive Protein 0.75 mg/dl (0-0.5); Calcium 8.7 mg/dl (8.5-10.1); Est GFR (African American) 85.3 ml/min; Est GFR (Non-African American) 73.6 ml/min
[2021-09-24] MEDS ORDERED: hydrALAZINE HCL 20 MG/ML VIAL IV PRN (08:37)
[2021-09-24] MEDS: UMECLIDINIUM BROMIDE 62.5MCG/BLISTER 7 PUFFS/INHALER INH SCH (09:24)
[2021-09-24] MEDS: CHOLECALCIFEROL 1,000 UNITS 25 MCG TAB PO SCH (09:24)
[2021-09-24] MEDS: ASPIRIN 81 MG ECTAB PO SCH (09:24)
[2021-09-24] MEDS: dexAMETHasone 6 MG in SYRINGE 0 ML IV SCH (09:24)
[2021-09-24] MEDS: PSYLLIUM or GUAR GUM FIBER POWDER PACKET PO SCH (09:24)
[2021-09-24] MEDS: AZITHROMYCIN 250 MG TAB PO SCH (09:24)
[2021-09-24] MEDS: CEROVITE ADV FORMULA TAB PO SCH (09:24)
[2021-09-24] MEDS: FERROUS SULFATE 325 MG TAB PO SCH ×2 (09:25→21:23)
[2021-09-24] MEDS: LOSARTAN POTASSIUM 25 MG TAB PO SCH (09:50)
[2021-09-24] MEDS: TAMSULOSIN HCL 0.4 MG CAP PO SCH (16:39)
--- NOTE | 2021-09-24 16:50 | Hospitalist Progress Note ---
Date of Service September 24, 2021 Assessment & Plan (1) Viral upper respiratory tract infection: Plan: 86-year-old man with medical history of hypertension, osteoporosis, CAD, hyperlipidemia, COPD, prostate cancer, and AAA, who presents today with chief complaint of fatigue and general malaise (afebrile) x24 hours in the setting of a COVID-19 outbreak. COVID-19 pneumoniarecent outbreak at [place] Continue DuoNebs, guaifenesin, Tylenol 2 L oxygen requirement on the floor, no home requirement Steroids converted to dexamethasone 6 mg daily, if worsening low threshold to increase to twice daily No signs of superimposed bacterial pneumonia at this time. Blood cultures on admission pending. Patient with asymptomatic bradycardia as noted below Tolerating p.o., IV fluids discontinued CXR: No lines and tubes are seen. Calcified aortic knob is seen. The lungs are clear. No evidence of pleural effusion or pneumothorax. Degenerative changes are seen in the thoracic spine. Irregularities in the left ribs were present in the prior exam and are favored to be chronic, correlation with point tenderness is recommended. Creatinine at baseline AST/ALT normal Troponin normal Procalcitonin normal CRP 0.75 Continue to follow for 24-48 hours to assess clinical course and if appropriate to return to [place]. PT/OT ordered and pending COPD Continue COVID treatment above Steroid treatments as noted previously We will treat for potential superimposed acute COPD exacerbation with viral pneumonia with 3-day course of azithromycin. No QT prolongation on EKG PFT 02/2019: Moderate obstruction. FEV1 57% predicted, FVC 70% predicted, ratio 81%, Last note from 2019, patient was trialed on Spiriva at that time and was to have 6-month follow-up. He reports he is sometimes used an inhaler when sick, no recent inhaler use but is a poor historian. Will continue Spiriva. 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 No pauses or bradycardia overnight. We will continue to follow for additional day, if doing well can downgrade from telemetry at that time History of prostate cancer, LUTS Continue Flomax Anxiety Home lorazepam chronic continued Code: Full Dispo: Med-Surg with telemetry FEN/GI: IV NSS, regular diet DVT Prophylaxis: Lovenox PT/OT: Ordered (2) COPD (chronic obstructive pulmonary disease): Admission and Anticipated Discharge Date Admission Date: September 23, 2021 Subjective No acute change, stable. No shortness of breath on room air. Continues with weakness. No chest pain/chest pressure. No palpitations. Heart rate has improved with holding beta-jesus. Review of Systems Review of Systems: All systems reviewed & are unremarkable except as noted in Subjective Physical Exam Physical Exam: General: A&Ox3. NAD. Cooperative. HEENT: Atraumatic, normocephalic. Pulm: Symmetrical chest rise. No increase in work of breathing. No respiratory distress. Cardiac: Regular, bradycardic, without murmur. radial pulses intact and symmetrical. Abdominal: Nontender, nondistended, soft. BS present. Extremities: Warm, dry without pitting edema Results & Data Results & Data ([facility]) Vital Signs (Past 12 Hours) Vital Signs Temp Pulse Resp BP Pulse Ox 09/24/21 16:38 157/83 H 09/24/21 16:02 36.8 C 62 18 190/98 H 95 09/24/21 08:22 36.4 C L 55 L 20 176/94 H 95 PG Care Time/CCT Total # of Minutes Spent Total Time Spent with Patient: Total time spent is greater than 50% in coordination of care (as documented) at patient's floor/unit and/or counseling patient: Coding Level of Care Code 86395 Subseq Hosp Care Lvl 1 Diagnoses Viral upper respiratory tract infection J06.9 COPD (chronic obstructive pulmonary disease) J44.9 COPD type: unspecified COPD (1) COPD (chronic obstructive pulmonary disease) COPD type: unspecified COPD Qualified Code(s): J44.9 - Chronic obstructive pulmonary disease, unspecified
[2021-09-24] MEDS: PRAVASTATIN SOD 40 MG TAB PO SCH (21:23)
[2021-09-25] MEDS: ENOXAPARIN INJ 40 MG/0.4 ML SYR SQ SCH ×2 (03:29→15:15)
[2021-09-25 06:21] LABS: Hematocrit (blood only) 35.6 % (42-52); Hemoglobin 11.9 g/dL (14.0-18.0); Immature Granulocytes # (auto) 0.01 K/uL (0.00-0.02); Immature Granulocytes % (auto) 0.2 %; Lymphocytes # (auto) 1.53 K/uL (1.2-3.4); Lymphocytes % (auto) 35.3 %; Mean Corpuscular Hgb Conc 33.4 g/dL (32-36); Mean Corpuscular Volume 89.7 fL (80-100); Monocytes # (auto) 0.59 K/uL (0.11-0.59); Monocytes % (auto) 13.6 %; Neutrophils # (auto) 2.21 K/uL (1.4-6.5); Neutrophils % (auto) 50.9 %; Platelet Count 121 K/uL (130-400); RDW Coefficient of Variation 13.4 % (11.5-14.5); RDW Standard Deviation 44.3 fL (36.4-46.3); Red Blood Count 3.97 M/uL (4.7-6.1); White Blood Count 4.34 K/uL (4.8-10.8)
[2021-09-25 06:41] LABS: BUN Creatinine Ratio 24.2 (10-20); Calcium 8.8 mg/dl (8.5-10.1); Creatinine Clr Calc Pharmacy 49.5 ml/min; Est GFR (African American) 84.3 ml/min; Est GFR (Non-African American) 72.7 ml/min
[2021-09-25] MEDS: AZITHROMYCIN 250 MG TAB PO SCH (08:42)
[2021-09-25] MEDS: UMECLIDINIUM BROMIDE 62.5MCG/BLISTER 7 PUFFS/INHALER INH SCH (08:42)
[2021-09-25] MEDS: CHOLECALCIFEROL 1,000 UNITS 25 MCG TAB PO SCH (08:42)
[2021-09-25] MEDS: ASPIRIN 81 MG ECTAB PO SCH (08:42)
[2021-09-25] MEDS: dexAMETHasone 6 MG in SYRINGE 0 ML IV SCH (08:42)
[2021-09-25] MEDS: PSYLLIUM or GUAR GUM FIBER POWDER PACKET PO SCH (08:43)
[2021-09-25] MEDS: FERROUS SULFATE 325 MG TAB PO SCH ×2 (08:43→20:39)
[2021-09-25] MEDS: CEROVITE ADV FORMULA TAB PO SCH (08:43)
[2021-09-25] MEDS: LOSARTAN POTASSIUM 25 MG TAB PO SCH (08:43)
[2021-09-25] MEDS: guaiFENesin 600 MG TABCR PO SCH ×2 (11:03→20:39)
--- NOTE | 2021-09-25 11:37 | Hospitalist Progress Note ---
Date of Service September 25, 2021 Assessment & Plan (1) Viral upper respiratory tract infection: Plan: 86-year-old man with medical history of hypertension, osteoporosis, CAD, hyperlipidemia, COPD, prostate cancer, and AAA, who presents today with chief complaint of fatigue and general malaise (afebrile) x24 hours in the setting of a COVID-19 outbreak. COVID-19 pneumoniarecent outbreak at [place] Continue DuoNebs, guaifenesin, Tylenol 2 L oxygen requirement on the floor, no home requirement Steroids converted to dexamethasone 6 mg daily, if worsening low threshold to increase to twice daily No signs of superimposed bacterial pneumonia at this time. Blood cultures on admission pending. Patient with asymptomatic bradycardia as noted below Tolerating p.o., IV fluids discontinued CXR: No lines and tubes are seen. Calcified aortic knob is seen. The lungs are clear. No evidence of pleural effusion or pneumothorax. Degenerative changes are seen in the thoracic spine. Irregularities in the left ribs were present in the prior exam and are favored to be chronic, correlation with point tenderness is recommended. Creatinine at baseline AST/ALT normal Troponin normal Procalcitonin normal CRP 0.75 Remained stable from a COVID standpoint and appropriate for discharge by respiratory standpoint PT/OT ordered and pending COPD Continue COVID treatment above Steroid treatments as noted previously We will treat for potential superimposed acute COPD exacerbation with viral pneumonia with 3-day course of azithromycin. No QT prolongation on EKG PFT 02/2019: Moderate obstruction. FEV1 57% predicted, FVC 70% predicted, ratio 81%, Last note from 2019, patient was trialed on Spiriva at that time and was to have 6-month follow-up. He reports he is sometimes used an inhaler when sick, no recent inhaler use but is a poor historian. Will continue Spiriva. 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 No pauses overnight. Continues to be intermittently bradycardic overnight with general daytime improvement to ~ 60s. Rate 63 at bedside assessment. Denies symptoms of this. Did discuss with patient and son, not interested in a pacer at this time and in absence of symptoms or pauses is not indicated at this time History of prostate cancer, LUTS Continue Flomax Anxiety Home lorazepam chronic continued Code: Full Dispo: Med-Surg with telemetry FEN/GI: IV NSS, regular diet DVT Prophylaxis: Lovenox PT/OT: Ordered (2) COPD (chronic obstructive pulmonary disease): Admission and Anticipated Discharge Date Admission Date: September 23, 2021 Subjective History and subjective limited by prominent dementia. Patient in no acute distress, reports his breathing feels okay although he has a little bit of difficulty expectorating sputum with his cough. Denies shortness of breath, difficulty breathing, chest pain. No nausea/vomiting. Tolerating food well, reported he is drinking his coffee slowly. Denies lighthea dedness/dizziness/syncope. Denies symptoms of his low heart rate. Reports he has sometimes felt a little lightheaded if he stands up too quickly, but has not appreciated this recently Review of Systems Review of Systems: All systems reviewed & are unremarkable except as noted in Subjective Physical Exam Physical Exam: General: Oriented to name only. NAD. Cooperative. HEENT: Atraumatic, normocephalic. Vision and hearing grossly intact Pulm: Symmetrical chest rise. No increase in work of breathing. No respiratory distress. Cardiac: Regular, rate 60-65 at bedside, without murmur. radial pulses intact and symmetrical. Abdominal: Nontender, nondistended, soft. BS present. Extremities: Warm, dry without pitting edema Results & Data Results & Data ([facility]) Vital Signs (Past 12 Hours) Vital Signs Temp Pulse Resp BP Pulse Ox 09/25/21 11:02 36.6 C 44 L 16 160/80 H 94 09/25/21 06:34 36.5 C 47 L 20 152/76 H 93 09/25/21 03:49 36.6 C 44 L 18 164/79 H 95 09/24/21 23:50 180/72 H PG Care Time/CCT Total # of Minutes Spent Total Time Spent with Patient: Total time spent is greater than 50% in coordination of care (as documented) at patient's floor/unit and/or counseling patient: Coding Level of Care Code 46443 Subseq Hosp Care Lvl 2 Diagnoses Viral upper respiratory tract infection J06.9 COPD (chronic obstructive pulmonary disease) J44.9 COPD type: unspecified COPD (1) COPD (chronic obstructive pulmonary disease) COPD type: unspecified COPD Qualified Code(s): J44.9 - Chronic obstructive pulmonary disease, unspecified
[2021-09-25] MEDS: TAMSULOSIN HCL 0.4 MG CAP PO SCH (16:42)
[2021-09-25] MEDS: PRAVASTATIN SOD 40 MG TAB PO SCH (20:39)
[2021-09-26] MEDS: ENOXAPARIN INJ 40 MG/0.4 ML SYR SQ SCH ×2 (03:45→15:17)
[2021-09-26 07:49] LABS: Hematocrit (blood only) 36.9 % (42-52); Hemoglobin 12.8 g/dL (14.0-18.0); Immature Granulocytes # (auto) 0.02 K/uL (0.00-0.02); Immature Granulocytes % (auto) 0.5 %; Lymphocytes # (auto) 1.48 K/uL (1.2-3.4); Lymphocytes % (auto) 37.7 %; Mean Corpuscular Hemoglobin 30.9 pg (25-34); Mean Corpuscular Hgb Conc 34.7 g/dL (32-36); Mean Corpuscular Volume 89.1 fL (80-100); Mean Platelet Volume 10.2 fL (7.4-10.4); Monocytes # (auto) 0.58 K/uL (0.11-0.59); Monocytes % (auto) 14.8 %; Neutrophils # (auto) 1.85 K/uL (1.4-6.5); Platelet Count 124 K/uL (130-400); RDW Coefficient of Variation 13.3 % (11.5-14.5); RDW Standard Deviation 43.4 fL (36.4-46.3); Red Blood Count 4.14 M/uL (4.7-6.1); White Blood Count 3.93 K/uL (4.8-10.8)
[2021-09-26 08:21] LABS: BUN Creatinine Ratio 21.6 (10-20); Calcium 9.1 mg/dl (8.5-10.1); Creatinine Clr Calc Pharmacy 40.5 ml/min; Est GFR (African American) 66.2 ml/min; Est GFR (Non-African American) 57.1 ml/min; Potassium 3.9 mmol/L (3.5-5.1)
[2021-09-26] MEDS: dexAMETHasone 6 MG in SYRINGE 0 ML IV SCH (08:40)
[2021-09-26] MEDS: ASPIRIN 81 MG ECTAB PO SCH (08:40)
[2021-09-26] MEDS: FERROUS SULFATE 325 MG TAB PO SCH ×2 (08:41→19:57)
[2021-09-26] MEDS: LOSARTAN POTASSIUM 25 MG TAB PO SCH (08:41)
[2021-09-26] MEDS: guaiFENesin 600 MG TABCR PO SCH ×2 (08:41→19:57)
[2021-09-26] MEDS: CEROVITE ADV FORMULA TAB PO SCH (08:41)
[2021-09-26] MEDS: CHOLECALCIFEROL 1,000 UNITS 25 MCG TAB PO SCH (08:41)
[2021-09-26] MEDS: PSYLLIUM or GUAR GUM FIBER POWDER PACKET PO SCH (08:41)
[2021-09-26] MEDS: UMECLIDINIUM BROMIDE 62.5MCG/BLISTER 7 PUFFS/INHALER INH SCH (08:42)
[2021-09-26] MEDS ORDERED: amLODIPine BESYLATE 5 MG TAB PO ONE ×3 (08:46→10:30)
--- NOTE | 2021-09-26 14:56 | Hospitalist Progress Note ---
Date of Service September 26, 2021 Assessment & Plan (1) Viral upper respiratory tract infection: Plan: 86-year-old man with medical history of hypertension, osteoporosis, CAD, hyperlipidemia, COPD, prostate cancer, and AAA, who presents today with chief complaint of fatigue and general malaise (afebrile) x24 hours in the setting of a COVID-19 outbreak. COVID-19 pneumoniarecent outbreak at [place] Continue DuoNebs, guaifenesin, Tylenol 2 L oxygen requirement on the floor, no home requirement. Weaned. Steroids converted to dexamethasone 6 mg daily, if worsening low threshold to increase to twice daily No signs of superimposed bacterial pneumonia at this time. Blood cultures on admission pending. Patient with asymptomatic bradycardia as noted below Tolerating p.o., IV fluids discontinued CXR: No lines and tubes are seen. Calcified aortic knob is seen. The lungs are clear. No evidence of pleural effusion or pneumothorax. Degenerative changes are seen in the thoracic spine. Irregularities in the left ribs were present in the prior exam and are favored to be chronic, correlation with point tenderness is recommended. Creatinine at baseline AST/ALT normal Troponin normal Procalcitonin normal CRP 0.75 09/24 Remains stable from a COVID standpoint and medically appropriate for discharge pending placement below Patient is recommended for rehab. Is able to go to [facility] but must be 10 days out from initial test 09/22 and will likely need to be 8 disposition hold until 10/02. Clinically well, will continue to follow at this time COPD Continue COVID treatment above Steroid treatments as noted previously We will treat for potential superimposed acute COPD exacerbation with viral pneumonia with 3-day course of azithromycin. No QT prolongation on EKG PFT 02/2019: Moderate obstruction. FEV1 57% predicted, FVC 70% predicted, ratio 81%, Last note from 2018, patient was trialed on Spiriva at that time and was to have 6-month follow-up. He reports he is sometimes used an inhaler when sick, no recent inhaler use but is a poor historian. Will continue Spiriva. 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 Did discuss with patient and son, not interested in a pacer at this time and in absence of symptoms or pauses is not indicated at this time. Follow for pauses/sx History of prostate cancer, LUTS Continue Flomax Anxiety Home lorazepam chronic continued Code: Full Dispo: Med-Surg with telemetry FEN/GI: IV NSS, regular diet DVT Prophylaxis: Lovenox PT/OT: Ordered (2) COPD (chronic obstructive pulmonary disease): Admission and Anticipated Discharge Date Admission Date: September 23, 2021 Subjective Oriented to name and place. No acute distress. No lightheadedness/dizziness. Endorses some dizziness when he is moving around, but none at time of evaluation. No chest pain/chest pressure. No shortness of breath. Did discuss with case management, patient is recommended for rehab. Is able to go to [facility] but must be 10 days out from initial test 09/22 and will likely need to be 8 disposition hold until 10/02. Clinically well, will continue to follow at this time Review of Systems Review of Systems: All systems reviewed & are unremarkable except as noted in Subjective Physical Exam Physical Exam: General: Oriented to name only. NAD. Cooperative. HEENT: Atraumatic, normocephalic. Vision and hearing grossly intact Pulm: Symmetrical chest rise. No increase in work of breathing. No respiratory distress. Cardiac: Regular, rate 50-60s without murmur. radial pulses intact and symmetrical. Abdominal: Nontender, nondistended, soft. BS present. Extremities: Warm, dry without pitting edema Results & Data Results & Data ([facility]) Vital Signs (Past 12 Hours) Vital Signs Temp Pulse Pulse Resp BP BP Pulse Ox 09/26/21 11:05 37 C 55 L 15 159/88 H 94 09/26/21 09:53 163/88 H 09/26/21 07:04 60 09/26/21 06:00 37 C 62 18 176/86 H 94 09/26/21 03:45 36.5 C 52 L 18 190/87 H 94 PG Care Time/CCT Total # of Minutes Spent Total Time Spent with Patient: Total time spent is greater than 50% in coordination of care (as documented) at patient's floor/unit and/or counseling patient: Coding Level of Care Code 63166 Subseq Hosp Care Lvl 1 Diagnoses Viral upper respiratory tract infection J06.9 COPD (chronic obstructive pulmonary disease) J44.9 COPD type: unspecified COPD (1) COPD (chronic obstructive pulmonary disease) COPD type: unspecified COPD Qualified Code(s): J44.9 - Chronic obstructive pulmonary disease, unspecified
[2021-09-26] MEDS: TAMSULOSIN HCL 0.4 MG CAP PO SCH (16:09)
[2021-09-26] MEDS: PRAVASTATIN SOD 40 MG TAB PO SCH (19:57)
[2021-09-27] MEDS: ENOXAPARIN INJ 40 MG/0.4 ML SYR SQ SCH ×2 (02:36→15:01)
[2021-09-27 07:56] LABS: Eosinophils # (auto) 0.02 K/uL (0-0.5); Eosinophils % (auto) 0.5 %; Hematocrit (blood only) 36.3 % (42-52); Hemoglobin 12.6 g/dL (14.0-18.0); Immature Granulocytes # (auto) 0.02 K/uL (0.00-0.02); Immature Granulocytes % (auto) 0.5 %; Lymphocytes # (auto) 1.55 K/uL (1.2-3.4); Lymphocytes % (auto) 35.3 %; Mean Corpuscular Hemoglobin 30.8 pg (25-34); Mean Corpuscular Hgb Conc 34.7 g/dL (32-36); Mean Corpuscular Volume 88.8 fL (80-100); Mean Platelet Volume 9.5 fL (7.4-10.4); Monocytes % (auto) 13.7 %; Platelet Count 113 K/uL (130-400); RDW Coefficient of Variation 13.2 % (11.5-14.5); RDW Standard Deviation 42.9 fL (36.4-46.3); Red Blood Count 4.09 M/uL (4.7-6.1); White Blood Count 4.39 K/uL (4.8-10.8)
[2021-09-27] MEDS: UMECLIDINIUM BROMIDE 62.5MCG/BLISTER 7 PUFFS/INHALER INH SCH (08:17)
[2021-09-27] MEDS: dexAMETHasone 6 MG in SYRINGE 0 ML IV SCH (08:17)
[2021-09-27] MEDS: LOSARTAN POTASSIUM 25 MG TAB PO SCH (08:17)
[2021-09-27] MEDS: ASPIRIN 81 MG ECTAB PO SCH (08:18)
[2021-09-27] MEDS: FERROUS SULFATE 325 MG TAB PO SCH ×2 (08:18→20:28)
[2021-09-27] MEDS: amLODIPine BESYLATE 5 MG TAB PO SCH (08:18)
[2021-09-27] MEDS: CHOLECALCIFEROL 1,000 UNITS 25 MCG TAB PO SCH (08:19)
[2021-09-27] MEDS: guaiFENesin 600 MG TABCR PO SCH ×2 (08:19→20:27)
[2021-09-27] MEDS: CEROVITE ADV FORMULA TAB PO SCH (08:19)
[2021-09-27] MEDS: PSYLLIUM or GUAR GUM FIBER POWDER PACKET PO SCH (08:19)
[2021-09-27 08:23] LABS: Albumin Globulin Ratio 1.6 (0.9-2); Albumin Level 3.6 gm/dl (3.4-5.0); BUN Creatinine Ratio 23.7 (10-20); Bilirubin,Total 1.1 mg/dl (0.2-1.0); Calcium 8.9 mg/dl (8.5-10.1); Creatinine Clr Calc Pharmacy 48.4 ml/min; Est GFR (African American) 82.2 ml/min; Est GFR (Non-African American) 70.9 ml/min; Globulin 2.3 gm/dl (2.5-4.0); Potassium 3.7 mmol/L (3.5-5.1); Total Protein 5.9 gm/dl (6.0-8.3)
--- NOTE | 2021-09-27 13:06 | Hospitalist Progress Note ---
Date of Service September 27, 2021 Assessment & Plan (1) Viral upper respiratory tract infection: Plan: 86-year-old man with medical history of hypertension, osteoporosis, CAD, hyperlipidemia, COPD, prostate cancer, and AAA, who presents today with chief complaint of fatigue and general malaise (afebrile) x24 hours in the setting of a COVID-19 outbreak. COVID[place]recent outbreak at [place] Continue DuoNebs, guaifenesin, Tylenol 2 L oxygen requirement on the floor, no home requirement. Weaned. Steroids converted to dexamethasone 6 mg daily, if worsening low threshold to increase to twice daily No signs of superimposed bacterial pneumonia at this time. Blood cultures on admission pending. Patient with asymptomatic bradycardia as noted below Tolerating p.o., IV fluids discontinued CXR: No lines and tubes are seen. Calcified aortic knob is seen. The lungs are clear. No evidence of pleural effusion or pneumothorax. Degenerative changes are seen in the thoracic spine. Irregularities in the left ribs were present in the prior exam and are favored to be chronic, correlation with point tenderness is recommended. Creatinine at baseline AST/ALT normal Troponin normal Procalcitonin normal CRP 0.75 09/24 Remains stable from a COVID standpoint and medically appropriate for discharge pending placement below Patient is recommended for rehab. Is able to go to [facility] but must be 10 days out from initial test 09/22 and will likely need to be 8 disposition hold until 10/02. Clinically well, will continue to follow at this time COPD Continue COVID treatment above Steroid treatments as noted previously We will treat for potential superimposed acute COPD exacerbation with viral pneumonia with 3-day course of azithromycin. No QT prolongation on EKG PFT 02/2019: Moderate obstruction. FEV1 57% predicted, FVC 70% predicted, ratio 81%, Last note from 2018, patient was trialed on Spiriva at that time and was to have 6-month follow-up. He reports he is sometimes used an inhaler when sick, no recent inhaler use but is a poor historian. Will continue Spiriva. 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 Did discuss with patient and son, not interested in a pacer at this time and in absence of symptoms or pauses is not indicated at this time. Follow for pauses/sx History of prostate cancer, LUTS Continue Flomax Anxiety Home lorazepam chronic continued Code: Full Dispo: Med-Surg with telemetry FEN/GI: IV NSS, regular diet DVT Prophylaxis: Lovenox PT/OT: Ordered (2) COPD (chronic obstructive pulmonary disease): Admission and Anticipated Discharge Date Admission Date: September 23, 2021 Subjective Pleasantly confused at bedside. Not oriented, history limited by cognitive status. Denies pain, thinks he coughed a little bit of phlegm a before but cannot remember when. Denies shortness of breath/difficulty breathing/chest pain/pain. Is aware he is pending placement, no questions at time of bedside visit Review of Systems Review of Systems: Unobtainable due to cognitive status (Grossly negative but limited by cognitive status) Physical Exam Physical Exam: General: Oriented to name only. NAD. Cooperative. HEENT: Atraumatic, normocephalic. Vision and hearing grossly intact Pulm: Symmetrical chest rise. No increase in work of breathing. No respiratory distress. Cardiac: Regular, rate 50-60s without murmur. radial pulses intact and symmetrical. Abdominal: Nontender, nondistended, soft. BS present. Extremities: Warm, dry without pitting edema Results & Data Results & Data ([facility]) Vital Signs (Past 12 Hours) Vital Signs Temp Pulse Pulse Resp BP BP Pulse Ox 09/27/21 11:12 36.5 C 111 H 20 171/81 H 95 09/27/21 10:28 144/91 H 09/27/21 07:12 49 L 09/27/21 06:18 36.8 C 55 L 18 181/72 H 95 09/27/21 03:08 36.3 C L 55 L 18 156/100 H 95 PG Care Time/CCT Total # of Minutes Spent Total Time Spent with Patient: Total time spent is greater than 50% in coordination of care (as documented) at patient's floor/unit and/or counseling patient: Coding Level of Care Code 61507 Subseq Hosp Care Lvl 1 Diagnoses Viral upper respiratory tract infection J06.9 COPD (chronic obstructive pulmonary disease) J44.9 COPD type: unspecified COPD (1) COPD (chronic obstructive pulmonary disease) COPD type: unspecified COPD Qualified Code(s): J44.9 - Chronic obstructive pulmonary disease, unspecified
[2021-09-27] MEDS: TAMSULOSIN HCL 0.4 MG CAP PO SCH (16:06)
[2021-09-27] MEDS: PRAVASTATIN SOD 40 MG TAB PO SCH (20:28)
[2021-09-28] MEDS ORDERED: Nursing to Pharmacy Communication SCH (02:45)
[2021-09-28] MEDS: ENOXAPARIN INJ 40 MG/0.4 ML SYR SQ SCH ×2 (05:57→17:14)
--- NOTE | 2021-09-28 07:35 | Hospitalist Progress Note ---
Date of Service September 28, 2021 Assessment & Plan (1) Viral upper respiratory tract infection: Plan: 86-year-old man with medical history of hypertension, osteoporosis, CAD, hyperlipidemia, COPD, prostate cancer, and AAA, who presents with chief complaint of fatigue and general malaise (afebrile) x24 hours in the setting of a COVID-19 COVID-19 pneumoniarecent outbreak at [place] Continue DuoNebs, guaifenesin, Tylenol 2 L oxygen requirement initially now weaned to room air Steroids, dexamethasone 6 mg daily Blood cultures negative to date Patient with asymptomatic bradycardia Will need to be hospitalized till then transfer for rehab CRP 0.75 09/24 Remains stable from a COVID standpoint and medically appropriate for discharge pending placement Patient is recommended for rehab. Is able to go to [facility] but must be 10 days out from initial test 09/22 and will likely need to be 8 disposition hold until 10/02. Clinically well, will continue to follow at this time COPD, not in exacerbation Continue COVID treatment above Steroid treatments for covid infection PFT 02/2019: Moderate obstruction. FEV1 57% predicted, FVC 70% predicted, ratio 81%, Last note from 2018, patient was trialed on Spiriva at that time and was to have 6-month follow-up. He reports he is sometimes used an inhaler when sick, no recent inhaler use. Recommend Spiriva at discharge. 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 Did discuss with patient and son, not interested in a pacer at this time and in absence of symptoms or pauses is not indicated at this time. Follow for pauses/sx History of prostate cancer, LUTS Continue Flomax Anxiety Home lorazepam chronic continued Code: Full DVT Prophylaxis: Lovenox (2) COPD (chronic obstructive pulmonary disease): Admission and Anticipated Discharge Date Admission Date: September 23, 2021 Subjective Pleasantly confused at bedside. Not oriented, history limited by cognitive status. Denies pain, Review of Systems Review of Systems: Unobtainable due to cognitive status Physical Exam Physical Exam: The patient appeared well he is pleasantly confused and in no significant distress Vital signs as documented. Lungs are clear to auscultation and appear unlabored Cardiac exam, Rhythm is regular.. No murmurs, rubs or gallops. Abdominal exam reveals normal bowel sounds, soft non tender, no masses Extremities are nonedematous and both pedal pulses are normal. Neurologic exam is alert and oriented x1 no focal loss of strength or sensation Skin is without bruises or rashes Psychologically is with concerns for significant dementia only oriented x1 Results & Data Results & Data ([facility]) Vital Signs (Past 12 Hours) Vital Signs Temp Pulse Pulse Resp BP Pulse Ox 09/28/21 07:18 65 09/28/21 05:47 97.7 F 56 L 18 155/81 H 96 09/28/21 01:09 52 L PG Care Time/CCT Total # of Minutes Spent Total Time Spent with Patient: Total time spent is greater than 50% in coordination of care (as documented) at patient's floor/unit and/or counseling patient: Coding Level of Care Code 65912 Subseq Hosp Care Lvl 2 Diagnoses Viral upper respiratory tract infection J06.9 COPD (chronic obstructive pulmonary disease) J44.9 COPD type: unspecified COPD (1) COPD (chronic obstructive pulmonary disease) COPD type: unspecified COPD Qualified Code(s): J44.9 - Chronic obstructive pulmonary disease, unspecified
[2021-09-28 07:51] LABS: Eosinophils # (auto) 0.02 K/uL (0-0.5); Eosinophils % (auto) 0.4 %; Hematocrit (blood only) 39.7 % (42-52); Hemoglobin 13.4 g/dL (14.0-18.0); Immature Granulocytes # (auto) 0.03 K/uL (0.00-0.02); Immature Granulocytes % (auto) 0.6 %; Lymphocytes # (auto) 1.67 K/uL (1.2-3.4); Lymphocytes % (auto) 35.5 %; Mean Corpuscular Hemoglobin 29.6 pg (25-34); Mean Corpuscular Hgb Conc 33.8 g/dL (32-36); Mean Corpuscular Volume 87.6 fL (80-100); Mean Platelet Volume 10.1 fL (7.4-10.4); Monocytes # (auto) 0.54 K/uL (0.11-0.59); Monocytes % (auto) 11.5 %; Neutrophils # (auto) 2.45 K/uL (1.4-6.5); Platelet Count 132 K/uL (130-400); RDW Coefficient of Variation 13.3 % (11.5-14.5); RDW Standard Deviation 42.9 fL (36.4-46.3); Red Blood Count 4.53 M/uL (4.7-6.1); White Blood Count 4.71 K/uL (4.8-10.8)
[2021-09-28 08:09] LABS: Albumin Globulin Ratio 1.4 (0.9-2); BUN Creatinine Ratio 23.5 (10-20); Bilirubin,Total 1.3 mg/dl (0.2-1.0); Calcium 9.4 mg/dl (8.5-10.1); Creatinine Clr Calc Pharmacy 40.9 ml/min; Est GFR (African American) 66.9 ml/min; Est GFR (Non-African American) 57.7 ml/min; Globulin 2.8 gm/dl (2.5-4.0); Potassium 3.9 mmol/L (3.5-5.1); Total Protein 6.8 gm/dl (6.0-8.3)
[2021-09-28] MEDS: LOSARTAN POTASSIUM 25 MG TAB PO SCH (08:44)
[2021-09-28] MEDS: ASPIRIN 81 MG ECTAB PO SCH (08:45)
[2021-09-28] MEDS: amLODIPine BESYLATE 5 MG TAB PO SCH (08:45)
[2021-09-28] MEDS: guaiFENesin 600 MG TABCR PO SCH ×2 (08:45→20:37)
[2021-09-28] MEDS: CEROVITE ADV FORMULA TAB PO SCH (08:45)
[2021-09-28] MEDS: CHOLECALCIFEROL 1,000 UNITS 25 MCG TAB PO SCH (08:45)
[2021-09-28] MEDS: FERROUS SULFATE 325 MG TAB PO SCH ×2 (08:45→20:36)
[2021-09-28] MEDS: PSYLLIUM or GUAR GUM FIBER POWDER PACKET PO SCH (08:45)
[2021-09-28] MEDS: UMECLIDINIUM BROMIDE 62.5MCG/BLISTER 7 PUFFS/INHALER INH SCH (08:47)
[2021-09-28] MEDS: dexAMETHasone 6 MG in SYRINGE 0 ML IV SCH (08:49)
[2021-09-28] MEDS: TAMSULOSIN HCL 0.4 MG CAP PO SCH (17:14)
[2021-09-28] MEDS: PRAVASTATIN SOD 40 MG TAB PO SCH (20:36)
[2021-09-29] MEDS: ENOXAPARIN INJ 40 MG/0.4 ML SYR SQ SCH ×2 (05:56→16:41)
[2021-09-29 07:38] LABS: Creatinine Clr Calc Pharmacy 43.5 ml/min; Est GFR (African American) 72.2 ml/min; Est GFR (Non-African American) 62.3 ml/min
[2021-09-29] MEDS: UMECLIDINIUM BROMIDE 62.5MCG/BLISTER 7 PUFFS/INHALER INH SCH (08:30)
[2021-09-29] MEDS: dexAMETHasone 6 MG in SYRINGE 0 ML IV SCH (08:31)
[2021-09-29] MEDS: ASPIRIN 81 MG ECTAB PO SCH (08:31)
[2021-09-29] MEDS: CHOLECALCIFEROL 1,000 UNITS 25 MCG TAB PO SCH (08:31)
[2021-09-29] MEDS: FERROUS SULFATE 325 MG TAB PO SCH ×2 (08:32→21:24)
[2021-09-29] MEDS: LOSARTAN POTASSIUM 25 MG TAB PO SCH (08:32)
[2021-09-29] MEDS: amLODIPine BESYLATE 5 MG TAB PO SCH (08:32)
[2021-09-29] MEDS: CEROVITE ADV FORMULA TAB PO SCH (08:33)
[2021-09-29] MEDS: guaiFENesin 600 MG TABCR PO SCH ×2 (10:31→21:24)
[2021-09-29] MEDS: PSYLLIUM or GUAR GUM FIBER POWDER PACKET PO SCH (10:32)
[2021-09-29] MEDS: TAMSULOSIN HCL 0.4 MG CAP PO SCH (16:40)
--- NOTE | 2021-09-29 17:29 | Hospitalist Progress Note ---
Date of Service September 29, 2021 Assessment & Plan (1) Viral upper respiratory tract infection: Plan: 86-year-old man with medical history of hypertension, osteoporosis, CAD, hyperlipidemia, COPD, prostate cancer, and AAA, who presents with chief complaint of fatigue and general malaise (afebrile) x24 hours in the setting of a COVID-19 COVID-19 pneumoniarecent outbreak at [place] Continue DuoNebs, guaifenesin, Tylenol 2 L oxygen requirement initially now weaned to ROOM AIR Steroids, dexamethasone 6 mg daily Blood cultures negative to date Patient with asymptomatic bradycardia Will need to be hospitalized till then transfer for rehab CRP 0.75 09/24 Remains stable from a COVID standpoint and medically appropriate for discharge pending placement Patient is recommended for rehab. Is able to go [facility] but must be 10 days out from initial test 09/22 and will likely need to be a disposition hold until 10/02. Clinically remains well, will continue to follow at this time COPD, not in exacerbation Continue COVID treatment above Steroid treatments for covid infection PFT 02/2019: Moderate obstruction. FEV1 57% predicted, FVC 70% predicted, ratio 81%, Last note from 2018, patient was trialed on Spiriva at that time and was to have 6-month follow-up. He reports he is sometimes used an inhaler when sick, no recent inhaler use. Recommend Spiriva at discharge. 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 Did discuss with patient and son, not interested in a pacer at this time and in absence of symptoms or pauses is not indicated at this time. Follow for pauses/sx History of prostate cancer, LUTS Continue Flomax Anxiety Home lorazepam chronic continued Code: Full DVT Prophylaxis: Lovenox (2) COPD (chronic obstructive pulmonary disease): Admission and Anticipated Discharge Date Admission Date: September 23, 2021 Subjective Pleasantly confused at bedside. Not oriented, history limited by cognitive status. Denies pain, Review of Systems Review of Systems: Unobtainable due to cognitive status Physical Exam Physical Exam: The patient appeared well he is pleasantly confused and in no significant distress Vital signs as documented. Lungs are clear to auscultation and appear unlabored Cardiac exam, Rhythm is regular.. No murmurs, rubs or gallops. Abdominal exam reveals normal bowel sounds, soft non tender, no masses Extremities are nonedematous and both pedal pulses are normal. Neurologic exam is alert and oriented x1 no focal loss of strength or sensation Skin is without bruises or rashes Psychologically is with concerns for significant dementia only oriented x1 Results & Data Results & Data ([facility]) Vital Signs (Past 12 Hours) Vital Signs Temp Pulse Pulse Resp BP Pulse Ox 09/29/21 16:42 97.5 F L 56 L 18 131/83 96 09/29/21 15:34 60 09/29/21 10:53 97.9 F 70 18 121/75 95 09/29/21 10:00 66 18 127/74 95 09/29/21 07:05 51 L PG Care Time/CCT Total # of Minutes Spent Total Time Spent with Patient: Total time spent is greater than 50% in coordination of care (as documented) at patient's floor/unit and/or counseling patient: Coding Level of Care Code 32543 Subseq Hosp Care Lvl 1 Diagnoses Viral upper respiratory tract infection J06.9 COPD (chronic obstructive pulmonary disease) J44.9 COPD type: unspecified COPD (1) COPD (chronic obstructive pulmonary disease) COPD type: unspecified COPD Qualified Code(s): J44.9 - Chronic obstructive pulmonary disease, unspecified
[2021-09-29] MEDS: PRAVASTATIN SOD 40 MG TAB PO SCH (21:23)
[2021-09-30] MEDS: ENOXAPARIN INJ 40 MG/0.4 ML SYR SQ SCH ×2 (05:22→17:23)
[2021-09-30] MEDS: dexAMETHasone 6 MG in SYRINGE 0 ML IV SCH (07:44)
[2021-09-30] MEDS: PSYLLIUM or GUAR GUM FIBER POWDER PACKET PO SCH (07:44)
[2021-09-30] MEDS: guaiFENesin 600 MG TABCR PO SCH ×2 (07:44→20:36)
[2021-09-30] MEDS: CHOLECALCIFEROL 1,000 UNITS 25 MCG TAB PO SCH (07:44)
[2021-09-30] MEDS: UMECLIDINIUM BROMIDE 62.5MCG/BLISTER 7 PUFFS/INHALER INH SCH (07:46)
[2021-09-30] MEDS: FERROUS SULFATE 325 MG TAB PO SCH ×2 (07:47→20:36)
[2021-09-30] MEDS: CEROVITE ADV FORMULA TAB PO SCH (07:47)
[2021-09-30] MEDS: LOSARTAN POTASSIUM 25 MG TAB PO SCH (07:47)
[2021-09-30] MEDS: amLODIPine BESYLATE 5 MG TAB PO SCH (07:47)
[2021-09-30] MEDS: ASPIRIN 81 MG ECTAB PO SCH (07:48)
--- NOTE | 2021-09-30 08:04 | Hospitalist Progress Note ---
Date of Service September 30, 2021 Assessment & Plan (1) Viral upper respiratory tract infection: Plan: 86-year-old man with medical history of hypertension, osteoporosis, CAD, hyperlipidemia, COPD, prostate cancer, and AAA, who presents with chief complaint of fatigue and general malaise (afebrile) x24 hours in the setting of a COVID-19 COVID-19 pneumoniarecent outbreak at [place] Continue DuoNebs, guaifenesin, Tylenol initial 2 L oxygen requirement initially now weaned to ROOM AIR Steroids, dexamethasone 6 mg daily LD 10/02 Blood cultures negative to date Remains stable from a COVID standpoint and medically appropriate for discharge pending placement Patient is recommended for rehab. Is able to [facility] but must be 10 days out from initial test 09/22 and will likely need to be a disposition hold until 10/02. Clinically remains well, will continue to follow at this time COPD, not in exacerbation Continue COVID treatment above Steroid treatments for covid infection PFT 02/2019: Moderate obstruction. FEV1 57% predicted, FVC 70% predicted, ratio 81%, Last note from 2018, patient was trialed on Spiriva at that time and was to have 6-month follow-up. He reports he is sometimes used an inhaler when sick, no recent inhaler use. Recommend Spiriva at discharge. 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 Did discuss with patient and son, not interested in a pacer at this time and in absence of symptoms or pauses is not indicated at this time. Follow for pauses/sx History of prostate cancer, LUTS Continue Flomax Anxiety Home lorazepam chronic continued Code: Full DVT Prophylaxis: Lovenox (2) COPD (chronic obstructive pulmonary disease): Admission and Anticipated Discharge Date Admission Date: September 23, 2021 Subjective Pleasantly confused at bedside. Not oriented, history limited by cognitive s tatus. Denies pain, Review of Systems Review of Systems: Unobtainable due to cognitive status Physical Exam Physical Exam: The patient appeared well he is pleasantly confused and in no significant distress Vital signs as documented. Lungs are clear to auscultation and appear unlabored Cardiac exam, Rhythm is regular.. No murmurs, rubs or gallops. Abdominal exam reveals normal bowel sounds, soft non tender, no masses Extremities are nonedematous and both pedal pulses are normal. Neurologic exam is alert and oriented x1 no focal loss of strength or sensation Skin is without bruises or rashes Psychologically is with concerns for significant dementia only oriented x1 Results & Data Results & Data ([facility]) Vital Signs (Past 12 Hours) Vital Signs Temp Pulse Pulse Resp BP Pulse Ox 09/30/21 07:33 97.7 F 58 L 20 131/78 96 09/30/21 07:05 57 L 09/30/21 02:50 97.7 F 54 L 18 154/90 H 96 09/29/21 23:10 97.7 F 60 20 137/89 96 09/29/21 22:17 53 L 09/29/21 20:22 97.7 F 58 L 18 147/80 H 97 PG Care Time/CCT Total # of Minutes Spent Total Time Spent with Patient: Total time spent is greater than 50% in coordination of care (as documented) at patient's floor/unit and/or counseling patient: Coding Level of Care Code 01542 Subseq Hosp Care Lvl 1 Diagnoses Viral upper respiratory tract infection J06.9 COPD (chronic obstructive pulmonary disease) J44.9 COPD type: unspecified COPD (1) COPD (chronic obstructive pulmonary disease) COPD type: unspecified COPD Qualified Code(s): J44.9 - Chronic obstructive pulmonary disease, unspecified
[2021-09-30] MEDS: TAMSULOSIN HCL 0.4 MG CAP PO SCH (17:21)
[2021-09-30] MEDS: PRAVASTATIN SOD 40 MG TAB PO SCH (20:36)
[2021-10-01] MEDS: ENOXAPARIN INJ 40 MG/0.4 ML SYR SQ SCH ×2 (08:34→20:30)
[2021-10-01] MEDS: dexAMETHasone 6 MG in SYRINGE 0 ML IV SCH (08:34)
[2021-10-01] MEDS: ASPIRIN 81 MG ECTAB PO SCH (08:34)
[2021-10-01] MEDS: FERROUS SULFATE 325 MG TAB PO SCH ×2 (08:34→20:31)
[2021-10-01] MEDS: LOSARTAN POTASSIUM 25 MG TAB PO SCH (08:34)
[2021-10-01] MEDS: guaiFENesin 600 MG TABCR PO SCH ×2 (08:34→20:31)
[2021-10-01] MEDS: CHOLECALCIFEROL 1,000 UNITS 25 MCG TAB PO SCH (08:35)
[2021-10-01] MEDS: amLODIPine BESYLATE 5 MG TAB PO SCH (08:35)
[2021-10-01] MEDS: PSYLLIUM or GUAR GUM FIBER POWDER PACKET PO SCH (08:35)
[2021-10-01] MEDS: CEROVITE ADV FORMULA TAB PO SCH (08:35)
[2021-10-01] MEDS: UMECLIDINIUM BROMIDE 62.5MCG/BLISTER 7 PUFFS/INHALER INH SCH (08:36)
--- NOTE | 2021-10-01 13:15 | Hospitalist Progress Note ---
Date of Service October 01, 2021 Assessment & Plan (1) Viral upper respiratory tract infection: Plan: 86-year-old man with medical history of hypertension, osteoporosis, CAD, hyperlipidemia, COPD, prostate cancer, and AAA, who presents with chief complaint of fatigue and general malaise (afebrile) x24 hours in the setting of a COVID-19 COVID-19 pneumoniarecent outbreak at [place] Continue DuoNebs, guaifenesin, Tylenol initial 2 L oxygen requirement initially now weaned to ROOM AIR Steroids, dexamethasone 6 mg daily LD 10/02 Blood cultures negative to date Remains stable from a COVID standpoint and medically appropriate for discharge pending placement once out of isolation Patient is recommended for rehab. Is [facility] to [facility] but must be 10 days out from initial test 09/22 and will likely need to be a disposition hold until 10/02. Clinically remains well, will continue to follow at this time COPD, not in exacerbation Continue COVID treatment above Steroid treatments for covid infection PFT 02/2019: Moderate obstruction. FEV1 57% predicted, FVC 70% predicted, ratio 81%, Last note from 2018, patient was trialed on Spiriva at that time and was to have 6-month follow-up. He reports he is sometimes used an inhaler when sick, no recent inhaler use. Recommend Spiriva at discharge. 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 Did discuss with patient and son, not interested in a pacer at this time and in absence of symptoms or pauses is not indicated at this time. Follow for pauses/sx History of prostate cancer, LUTS Continue Flomax Anxiety Home lorazepam chronic continued Code: Full DVT Prophylaxis: Lovenox (2) COPD (chronic obstructive pulmonary disease): Admission and Anticipated Discharge Date Admission Date: September 23, 2021 Subjective Pleasantly confused at bedside. Not oriented, history limited by cognitive status. Denies pain, Review of Systems Review of Systems: Unobtainable due to cognitive status overall the pt is not with complaints and seems comfortable Physical Exam Physical Exam: The patient appeared well he is pleasantly confused and in no significant distress Vital signs as documented. Lungs are clear to auscultation and appear unlabored Cardiac exam, Rhythm is regular.. No murmurs, rubs or gallops. Abdominal exam reveals normal bowel sounds, soft non tender, no masses Extremities are nonedematous and both pedal pulses are normal. Neurologic exam is alert and oriented x1 no focal loss of strength or sensation Skin is without bruises or rashes Psychologically is with concerns for significant dementia only oriented x1 Results & Data Results & Data ([facility]) Vital Signs (Past 12 Hours) Vital Signs Temp Pulse Resp BP Pulse Ox 10/01/21 07:51 97.9 F 62 14 118/71 95 PG Care Time/CCT Total # of Minutes Spent Total Time Spent with Patient: Total time spent is greater than 50% in coordination of care (as documented) at patient's floor/unit and/or counseling patient: Coding Level of Care Code 78717 Subseq Hosp Care Lvl 1 Diagnoses Viral upper respiratory tract infection J06.9 COPD (chronic obstructive pulmonary disease) J44.9 COPD type: unspecified COPD (1) COPD (chronic obstructive pulmonary disease) COPD type: unspecified COPD Qualified Code(s): J44.9 - Chronic obstructive pulmonary disease, unspecified
[2021-10-01] MEDS: TAMSULOSIN HCL 0.4 MG CAP PO SCH (17:30)
[2021-10-01] MEDS: PRAVASTATIN SOD 40 MG TAB PO SCH (20:32)
[2021-10-02 08:12] VITALS: PULSE 63; TEMP 97.7; O2SAT 90
[2021-10-02] MEDS: CEROVITE ADV FORMULA TAB PO SCH (08:48)
[2021-10-02] MEDS: amLODIPine BESYLATE 5 MG TAB PO SCH (08:48)
[2021-10-02] MEDS: LOSARTAN POTASSIUM 25 MG TAB PO SCH (08:48)
[2021-10-02] MEDS: ASPIRIN 81 MG ECTAB PO SCH (08:48)
[2021-10-02] MEDS: CHOLECALCIFEROL 1,000 UNITS 25 MCG TAB PO SCH (08:48)
[2021-10-02] MEDS: dexAMETHasone 6 MG in SYRINGE 0 ML IV SCH (08:48)
[2021-10-02] MEDS: FERROUS SULFATE 325 MG TAB PO SCH (08:49)
[2021-10-02] MEDS: PSYLLIUM or GUAR GUM FIBER POWDER PACKET PO SCH (08:49)
[2021-10-02] MEDS: guaiFENesin 600 MG TABCR PO SCH (08:49)
[2021-10-02] MEDS: UMECLIDINIUM BROMIDE 62.5MCG/BLISTER 7 PUFFS/INHALER INH SCH (08:49)
[2021-10-02] MEDS: ENOXAPARIN INJ 40 MG/0.4 ML SYR SQ SCH (08:49)
[2021-10-02 10:48] VITALS: BP 144/91
[2021-10-02 11:29] LABS: Creatinine Clr Calc Pharmacy 45.2 ml/min; Est GFR (African American) 75.5 ml/min; Est GFR (Non-African American) 65.2 ml/min
--- NOTE | 2021-10-02 13:54 | Discharge Summary ---
Date of Service October 02, 2021 Admission HPI Per Admitting Provider Javier Herrera is a 86-year-old man with medical history of hypertension, osteoporosis, CAD, hyperlipidemia, COPD, prostate cancer, and AAA, who presents today with chief complaint of fatigue and general malaise x24 hours. Patient lives at [facility], where there has been a recent COVID-19 outbreak. In addition to malaise, patient had some confusion. Patient was never hypoxic. ED course: Vitals were mostly stable and within normal limits. However, patient was found to be wheezing, and he received DuoNebs, Solu-Medrol, in addition to guaifenesin, and Tylenol for supportive management. Principal Diagnosis covid pneumonia infection asymptomatic brachycardia dementia Discharge Exam The patient appeared well but is demented he is however very stable Vital signs as documented. Lungs are clear to auscultation and appear unlabored not had significant issues for few days with breathing Cardiac exam, Rhythm is regular.. No murmurs, rubs or gallops. Abdominal exam reveals normal bowel sounds, soft non tender, no masses Extremities are nonedematous and both pedal pulses are normal. Neurologic exam is alert and oriented x2, no focal loss of strength or sensation Skin is without bruises or rashes Psychologically is with concerned for dementia Discharge Data Allergies Allergy/AdvReac Type Severity Reaction Status Date / Time No Known Drug Allergies Allergy Verified 09/22/21 21:38 Consultations 09/22/21 19:51 ED Decision to Admit Stat Hospital Course (1) Viral upper respiratory tract infection: 86-year-old man with medical history of hypertension, osteoporosis, CAD, hyperlipidemia, COPD, prostate cancer, and AAA, who presents with chief complaint of fatigue and general malaise (afebrile) x24 hours in the setting of a COVID-19 COVID[place]19 [place] outbreak at [place] Continue DuoNebs, guaifenesin, Tylenol initial 2 L oxygen requirement initially now weaned to ROOM AIR Steroids, dexamethasone 6 mg daily LD 10/02 Blood cultures negative to date Remains stable from a COVID standpoint and medically appropriate for discharge pending placement once out of isolation 10/02/21 Patient is recommended for rehab. Is able to go to [facility] 10/02. COPD, not in exacerbation Continue COVID treatment above Steroid treatments for covid infection completed PFT 02/2019: Moderate obstruction. FEV1 57% predicted, FVC 70% predicted, ratio 81%, Last note from 2019, patient was trialed on Spiriva at that time and was to have 6-month follow-up. He reports he is sometimes used an inhaler when sick, no recent inhaler use. Recommend Spiriva at discharge. CAD Continue aspirin 81 mg daily, Pravastatin 40 mg nightly [employer] Asymptomatic bradycardia 50s on assessment, but with frequent drops to 30s Metoprolol held Continues to be intermittently bradycardic with general daytime improvement to ~ 60s. Did discuss with patient and son, not interested in a pacer at this time and in absence of symptoms or pauses is not indicated at this time. Follow for pauses/sx History of prostate cancer, LUTS Continue Flomax Anxiety Home lorazepam chronic continued Code: Full DVT Prophylaxis: Lovenox (2) COPD (chronic obstructive pulmonary disease): Total Time Total Time Spent Total Time Spent (In Minutes): It required less than 30 minutes to prepare this patient for discharge Discharge Plan Discharge Items Patient Disposition: Transfer [facility] Reason For Visit: DYSPNEA/MALAISE Discharge Diagnosis: COVID infection Activity: Per Instructions section Non-emergency contact: Primary Care Provider Call non-emergency contact if: you have any medication questions, your symptoms worsen and your pain is not controlled Follow-up/Referrals: NICK STAUFFER [Primary Care Provider] - Diet: Heart Healthy Addtl Attending Provider Instructions: You were seen in the hospital for weakness and fatigue. You were found to have COVID-19. Your placed on dexamethasone, steroid, and were clinically improving. You were noted to have intermittently low heart rates overnight, your beta- jesus was stopped as this can exacerbate this and make your heart rate go very low. You were breathing well on room air following steroid treatment, and you not have an oxygen requirement at time of discharge. You are being discharged for further rehab and care with follow-up to primary care physician. Please continue to take dexamethasone 6 mg by mouth once daily to complete a total 10- day course. You did not show any prolonged heart rate pauses, and did not show any evidence of symptomatic bradycardia (symptomatic slow heart rate) during admission that would require pacer placement. If your heart rate continues to be very low, if you have symptoms of low heart rate including progressive fatigue, lightheadedness/dizziness/passing out please seek medical reevaluation for potential pacer evaluation. If you develop any new or worsening symptoms including fever, chills, sweats, chest pain, chest pressure, difficulty breathing, uncontrolled nausea/vomiting, rash, wheezing, passing out or nearly passing out, bleeding, black/bloody bowel movements, or other new or concerning symptoms please call your primary care physician, or call 911 for re-evaluation in the emergency department if you are very concerned. Pending Studies at Discharge: No Stand-Alone Forms: My [facility] Skilled Items Patient informed of condition?: Yes DNR: Yes Discharge Level of Care: Skilled Communicable Disease: No Discharge Prognosis: Stable Lines: None Urinary Catheter: No Medications and DC Order Prescriptions: New amlodipine [Norvasc] 5 mg Tablet 5 mg PO QAM Qty: 30 RF: 0 losartan 25 mg Tablet 25 mg PO QAM Qty: 30 RF: 0 Incruse Ellipta 62.5 mcg/actuation Blister With Device 1 puff inhalation QAM Qty: 1 RF: 0 Continued pravastatin 40 mg tablet 40 mg PO HS Qty: 90 RF: 1 acetaminophen 500 mg Tablet 500 mg PO Q4H PRN (Reason: Pain) RF: 0 aspirin 81 mg Tablet,Delayed Release (Dr/Ec) 81 mg PO QAM RF: 0 loperamide 2 mg Capsule 2 mg PO Q12 PRN (Reason: Diarrhea) RF: 0 lorazepam 0.5 mg tablet 0.25 mg PO BID RF: 0 lorazepam 0.5 mg tablet 0.5 mg sublingual Q4H PRN (Reason: Anxiety) RF: 0 ferrous sulfate 325 mg (65 mg iron) Tablet 325 mg PO BID RF: 0 cholecalciferol (vitamin D3) [Vitamin D3] 50 mcg (2,000 unit) Tablet 50 mcg PO QAM RF: 0 Therems-M 9 mg iron-400 mcg Tablet 1 tab PO QAM RF: 0 Metamucil (with sugar) 3 gram/7 gram Powder 1 tbsp PO QAM RF: 0 tamsulosin 0.4 mg capsule 0.4 mg PO DAILY@1700 RF: 0 risedronate [Actonel] 35 mg tablet 35 mg PO WK RF: 0 Discontinued metoprolol succinate 25 mg tablet extended release 24 hr 12.5 mg PO QAM RF: 0 Discharge Orders: Discharge Order (Routine); Ordered 10/02/21 Ordered By: Jenaro Hernandez Admission Data Admit Date/Time: 09/23/21 10:29 Attending Provider: Jenaro Hernandez Admit Provider: Starr Gonsales Primary Care Provider: NICK STAUFFER Other Providers: [facility] ; Jose Antonio Morataya Other Interventions: Discharge Summary Assessment (RN) Last Done: 10/02/21 10:47 Coding Level of Care Code D/C DAY MANAGEMENT <30 MINS Diagnoses Viral upper respiratory tract infection J06.9 COPD (chronic obstructive pulmonary disease) J44.9 COPD type: unspecified COPD
== END 2021-10-02 12:03 | DRG 177 ==
LOC: 3E 14:59 → ED 14:59 → SUATTDRO 22:03 → 3E 23:36 → SUATTDRO 09-23 10:29 → 2N 09-23 13:22 → 3W 09-30 19:27

== ENCOUNTER 2023-08-29 15:18 | Inpatient (IN) ==
--- NOTE | 2023-08-29 15:38 | Emergency Department Note ---
Impression & Plan Closed right hip fracture, Fall, Acute hip pain, Anemia ED Provider Note NAME: MARLENE DOUGLAS AGE: 88 SEX: M : 1935 ARRIVES VIA: Ambulance INFORMANT: Patient, ED PROVIDER(S): Po Correa MD CHIEF COMPLAINT: Fall, hip pain MEDICAL DECISION MAKING: Patient presents due to concern for fall and hip pain also does have associated right upper extremity and left lower extremity pain. CT head and CT cervical spine also obtained.IV was established and patient did receive Ofirmev blood work was obtained. Patient with a normal white count hemoglobin of 11 which is chronic and stable. Platelet count is unremarkable. Kidney function creatinine 1.43 patient's urinalysis does not show evidence of blood or infection. The patient's chest x-ray is negative ankle x-ray negative. Patient's CT of the cervical spine is negative foot x-ray negative patient's right forearm x-ray negative. CT head negative. Wrist x-ray is negative the patient's hip x-ray does show a right intertrochanteric fracture. I did speak with the on-call hospitalist service and did update the family and patient. Patient was ordered IV morphine 2 mg. I did also message Dr. Castaneda on-call orthopedist and the patient was admitted to the medicine service Discussion w/ other healthcare providers: Dr. Quach inpatient medicine service Dr. Castaneda orthopedist Prior /Outside records reviewed: I reviewed a discharge summary from Dr. Hernandez from October 02, 2021. Patient known history of hypertension osteoporosis CAD hyperlipidemia COPD prostate CA AAA presented with fatigue and malaise. Patient was admitted at that time due to concern for viral upper respiratory tract infection. Differential diagnosis: Fracture, dislocation, contusion, strain, sprain, ICH, hemothorax, intra- abdominal injury, anemia among other causes were considered. Diagnostics, as interpreted by me: ECG: Sinus, rate of 60, normal intervals, normal axis no ST elevations. Cardiac monitoring: An order was placed for continuous cardiac monitoring. The monitor shows a rate of 65 with sinus rhythm. Patient was placed on pulse oximetry Medical decision rules: Jay head CT rule Imaging studies: I informally interpreted the patient's hip and pelvis x-ray which does show right-sided intertrochanteric fracture with formal report to follow. I informally interpreted the patient's chest x-ray which does not show obvious pneumonia or pneumothorax with formal report to follow. I informally interpreted the patient's right forearm x-ray which does not show obvious fracture or dislocation with formal report to follow. HPI: Patient presents due to concern for unwitnessed fall and associated left- sided hip pain. Patient does present from [place] does have a history of dementia. He is accompanied by his son and reports that he is currently at his baseline. Patient does complain of left-sided hip pain. Patient does take baby aspirin. Unknown is whether or not the patient had any LOC. Patient was not able to be ambulatory after the fall. Does have a prior history of a left hip replacement that was completed at [place] in the past as the last time that this occurred he had associated fall and rib fractures. PAST MEDICAL HISTORY: See Below PAST SURGICAL HISTORY: See Below SOCIAL HISTORY: See Below HOME MEDICATIONS: See Below ALLERGIES: See Below VITALS: See Below PHYSICAL EXAMINATION: GENERAL: NAD, non-toxic. EYE EXAM: Normal conjunctiva. PERRL, no anisocoria and EOM's grossly intact w/o pain. Arcus senilis bilaterally. Head: Left-sided occipital pain without obvious hematoma or laceration. OROPHARYNX: Dry mucus membranes, grossly normal dentition. NECK: Trachea midline, no stridor. Midline C-spine TTP. LUNGS: Clear to auscultation. Normal chest wall mechanics. Chest: No reproducible anterior posterior chest wall pain. HEART: NSR, no MRG. ABDOMEN: Abdomen soft, non-tender, no masses, no rebound or guarding. BACK: No CVA TTP. No reproducible lumbar thoracic TTP SKIN: No rashes and no bruising. UPPER EXTREMITIES: Upper extremities are grossly normal. Mild pain to the distal right forearm without obvious deformity. Neurovascular intact LOWER EXTREMITIES: Bilateral hip and pelvis pain. No obvious pelvic instability. NEURO EXAM: Awake and alert follows basic commands. Moves all 4 extremities but decreased range of motion bilateral lower extremity secondary to pain Past Med/Surg History Medical History Prostate cancer History of Clostridium difficile colitis Ground glass opacity present on imaging of lung Sepsis due to urinary tract infection Prostate cancer (03/06/14) "Lower urinary tract symptoms, rising PSA to 10.9 Status post completion of biopsies revealing adenocarcinoma the prostate on 03/06/2014 [place] 5+4 Initiation of hormonal suppression 04/16/2014 Status post prostate seed implant 11/17/2014 received 7500 cGy Hospitalization for urosepsis Urinary retention requiring self catheterization Status post completion of radiation therapy with IMRT IGRT 12/24/2014 received 5180 cGy" On 12/31/14 11:03 Kenia Anderson wrote "Lower urinary tract symptoms, rising PSA to 10.9 Status post completion of biopsies revealing adenocarcinoma the prostate on 03/06/2014 [place] 5+4 Initiation of hormonal suppression Status post prostate seed implant 11/17/2014 Hospitalization for urosepsis Urinary retention requiring self catheterization" Bilateral lower extremity edema Surgical History History of hip surgery left, 08/07/2018 S/P AAA repair 2015 S/P cholecystectomy Family History Unknown Coronary heart disease Sister Breast cancer Other Myocardial infarction Denies family history of Ovarian cancer Colorectal cancer Social History Smoking Status: Unknown if ever smoked Cigarettes Per Day: 50 pack year history; Second Hand Exposure: No; Do You Dip or Chew Tobacco: No; Hx Alcohol Use: No Hx Substance Use: No Preferred Language: Bengali Communication Ability: Effective Visual Impairment: No Limitations Hearing Ability: Use of Hearing Aid Airport Representative Required: No Beliefs That Will Affect Care: None marital status: / Current Living Situation: Personal Care Facility Current Living Situation Comment: [place] current occupational status: retired Feels Safe at Home: Yes Childhood Exposure to Second-Hand Smoke: Yes Dental Care, Regularly: Yes Physical Activity Frequency: 3-4 Times per Week Assistive Devices: Walker Allergies Allergies Allergy/AdvReac Type Severity Reaction Status Date / Time No Known Allergies Allergy Verified 08/29/23 17:29 Home Meds Home Medications Medication Instructions Recorded Confirmed aspirin 81 mg tablet,delayed 81 mg PO QAM 08/06/18 08/29/23 release acetaminophen 500 mg tablet 500 mg PO Q4H PRN Pain 09/26/18 08/29/23 loperamide 2 mg capsule 2 mg PO Q12 PRN Diarrhea 09/22/21 08/29/23 psyllium husk (with sugar) 3 1 tbsp PO DAILY PRN Constipation 09/22/21 08/29/23 gram/7 gram oral powder (Metamucil (with sugar)) tamsulosin 0.4 mg capsule 0.4 mg PO QDD 09/22/21 08/29/23 acetaminophen 325 mg tablet 650 mg PO BIDM 3 GRAMS APAP/24 08/13/23 08/29/23 (Tylenol) HOURS acetaminophen 650 mg rectal 650 mg GA Q4H PRN TEMP > 100.4 08/13/23 08/29/23 suppository aluminum-mag hydroxide-simethicone 20 ml PO Q4H PRN 08/13/23 08/29/23 200 mg-200 mg-20 mg/5 mL oral susp IINDIGESTION/EPIGASTRIC PAIN (Antacid) amlodipine 2.5 mg tablet 2.5 mg PO QAM 08/13/23 08/29/23 citalopram 10 mg tablet 10 mg PO QAM 08/13/23 08/29/23 diazepam 5 mg/mL injection solution 5 mg PO Q8H PRN TERMINAL 08/13/23 08/29/23 RESTLESSNESS furosemide 20 mg tablet (Lasix) 20 mg PO QAM 08/13/23 08/29/23 mirtazapine 7.5 mg tablet 7.5 mg PO QDD 08/13/23 08/29/23 ondansetron 4 mg disintegrating 4 mg translingual Q4H PRN 08/13/23 08/29/23 tablet NAUSEA/VOMITING lorazepam 2 mg/mL oral concentrate 2 mg PO Q4H PRN Anxiety 08/29/23 08/29/23 Previous Rx's Medication Instructions Recorded losartan 25 mg tablet 25 mg PO QAM #30 tabs 10/02/21 Results & Data (ED) Vital Signs Vital Signs - 24 hr 08/29/23 15:27 08/29/23 16:36 Temperature 36.5 C Temperature Source Oral Pulse Rate 63 57 L Respiratory Rate 20 Blood Pressure 153/80 H Blood Pressure Mean 104 Pulse Oximetry 93 Oxygen Delivery Method Room Air Sepsis Recent Fever Within 48 Hours No Sepsis New/Unexplained Change in Mental Status No Sepsis Action Taken by Nursing No Action Required Home Medications Current Medication List: was personally reviewed by me Laboratory Data Attestation: I reviewed the patient's lab results. 08/29/23 15:38 08/29/23 15:38 Lab Results 08/29/23 08/29/23 Range/Units 15:38 17:03 WBC 5.51 (4.8-10.8) K/ul RBC 3.73 L (4.70-6.10) M/uL Hgb 11.2 L (14.0-18.0) g/dl Hct 35.4 L (42.0-52.0) % MCV 94.9 (80.0-100.0) fL MCH 30.0 (25.0-34.0) pg MCHC 31.6 L (32.0-36.0) g/dL RDW Std Deviation 45.3 (36.4-46.3) fL RDW Coeff of Livier 13.0 (11.5-14.5) % Plt Count 137 (130-400) K/uL MPV 10.3 (9.4-12.4) fL Immature Gran % (Auto) 0.2 % Neut % (Auto) 42.5 % Lymph % (Auto) 40.1 % Ector % (Auto) 14.2 % Eos % (Auto) 2.5 % Baso % (Auto) 0.5 % Neut # (Auto) 2.34 (1.40-6.50) K/uL Lymph # (Auto) 2.21 (1.20-3.40) K/uL Ector # (Auto) 0.78 H (0.11-0.59) K/uL Eos # (Auto) 0.14 (0.00-0.50) K/uL Baso # (Auto) 0.03 (0.00-0.20) K/uL Immature Gran # (Auto) 0.01 (0.01-0.20) K/uL PT 11.5 (9.0-12.0) Seconds INR 1.1 (0.9-1.1) APTT 27 (21-31) Seconds PTT Ratio 1.0 Sodium 139 (136-145) mmol/L Potassium 4.4 (3.5-5.1) mmol/L Chloride 106 (98-107) mmol/L Carbon Dioxide 29 (21-32) mmol/L Anion Gap 4 (3-11) BUN 36 H (6-23) mg/dl Creatinine 1.43 H (0.6-1.4) mg/dl Est Cr Clr Drug Dosing 35.5 ml/min Est GFR ( Amer) 50.7 ml/min Est GFR (Non-Af Amer) 43.7 ml/min BUN/Creatinine Ratio 25.2 H (10-20) Glucose 120 H (70-99(Fasting)) mg/dl Calcium 9.4 (8.6-10.3) mg/dl Total Bilirubin 0.4 (0.2-1.0) mg/dl AST 18 (13-39) U/L ALT 9 (7-52) U/L Alkaline Phosphatase 49 (34-104) U/L Total Protein 6.7 (6.0-8.3) gm/dl Albumin 4.1 (3.4-5.0) gm/dl Globulin 2.6 (2.5-4.0) gm/dl Albumin/Globulin Ratio 1.6 (0.9-2) Urine Color Yellow Urine Appearance Clear (Clear) Urine pH 6.5 (4.5-7.5) Ur Specific Joshua 1.018 (1.000-1.030) Urine Protein Negative (Negative) Urine Glucose (UA) Negative (Negative) Urine Ketones Negative (Negative) Urine Blood Negative (Negative) Urine Nitrite Negative (Negative) Urine Bilirubin Negative (Negative) Urine Urobilinogen Negative (Negative) Ur Leukocyte Esterase Negative (Negative) Administered Medications Morphine Sulfate (Morphine Sulfate 4 Mg/Ml 1 Ml Carp\\Vial) 4 mg IV Q3H PRN PRN Reason: Pain (6,7,8,9,10) Stop: 09/12/23 21:04 Last Admin: 08/29/23 21:40 Dose: 4 mg Documented By: KIM Discontinued Medications Acetaminophen (Ofirmev) 1,000 mg in 100 mls @ 400 mls/hr IV NOW STA Stop: 08/29/23 16:19 Last Infusion: 08/29/23 16:32 Dose: Infused Documented By: Admin: 08/29/23 16:11 Dose: 400 mls/hr Documented By: FENG Morphine Sulfate (Morphine Sulfate 2 Mg/Ml Carp) 2 mg IV NOW STA Stop: 08/29/23 18:19 Last Admin: 08/29/23 19:01 Dose: 2 mg Documented By: FENG Olanzapine (Olanzapine 10 Mg/2.1 Ml Sdv) 2.5 mg IM NOW STA Stop: 08/29/23 19:05 Last Admin: 08/29/23 19:21 Dose: 2.5 mg Documented By: CHEVY Ondansetron HCl (Ondansetron Inj 2 Mg/Ml 2 Ml Vial) 4 mg IV NOW STA Stop: 08/29/23 19:06 Last Admin: 08/29/23 19:21 Dose: 4 mg Documented By: CHEVY Imaging Data Radiologist's Impression: Chest X-Ray 08/29/23 15:32 XR chest 1V not portable CLINICAL HISTORY: Confusion. COMPARISON STUDY: Chest CT January 09, 2019. Chest radiograph August 13, 2023. FINDINGS: This exam is mildly compromised given difficulty positioning. No pneumothorax or pleural effusion is present. Cardiomediastinal silhouette is stable. Skin folds project over the chest. Several old left-sided rib fractures are incidentally noted. There is no radiographic evidence for pulmonary edema. IMPRESSION: No acute cardiopulmonary findings. ACT 112: Negative or not required by law. Electronically signed by: Carlos Starr M.D. 08/29/2023 5:28 PM Ankle X-Ray 08/29/23 16:05 XR ankle LT 2V CLINICAL HISTORY: pain post fall COMPARISON: None FINDINGS: Alignment of the left ankle is anatomic. There is no acute fracture. Talar dome is intact. There are no osseous lesions. There is mild soft tissue swelling. IMPRESSION: No fracture or dislocation within the left ankle. ACT 112: Negative or not required by law. Electronically signed by: Carlos Starr M.D. 08/29/2023 5:[address] 08/29/23 16:05 CT OF THE CERVICAL SPINE WITHOUT CONTRAST CLINICAL HISTORY: midline neck pain COMPARISON STUDY: Cervical spine CT August 06, 2018. TECHNIQUE: Helical axial images of the cervical spine were obtained without IV contrast. Sagittal and coronal reconstructions were viewed. Automated exposure control was utilized for the study. A dose lowering technique was utilized adhering to the principles of ALARA. FINDINGS: Alignment of the cervical spine is anatomic. Vertebral body heights are maintained. No acute cervical spine fracture or subluxation is present. There is no prevertebral edema. Facet joints are intact. Moderate multilevel degenerative disc disease and facet arthrosis within the cervical spine is present. A 1.1 cm groundglass right upper lobe nodule is similar to CT of August 06, 2018. This remains indeterminate. IMPRESSION: No acute cervical spine fracture or subluxation. ACT 112: Negative or not required by law. Electronically signed by: Carlos Starr M.D. 08/29/2023 6:15 PM Foot X-Ray 08/29/23 16:05 XR foot LT 2V CLINICAL HISTORY: pain post fall COMPARISON: None FINDINGS: Evaluation of the toes is suboptimal given chronic deformities. However, no acute fractures are identified. Tarsometatarsal joints are grossly intact. No osseous lesions are identified. There is mild joint space narrowing and osteophytosis within multiple articulations of the left foot. IMPRESSION: No fractures identified within the left foot. ACT 112: Negative or not required by law. Electronically signed by: Carlos Starr M.D. 08/29/2023 5:34 PM Forearm X-Ray 08/29/23 16:05 XR forearm RT 2V CLINICAL HISTORY: pain post fall COMPARISON: None FINDINGS: No fractures are identified within the right radius or ulna. Radiocarpal joint space narrowing is noted. Alignment of the right elbow is anatomic. This exam is mildly compromised given difficulty positioning. IMPRESSION: No fractures within the right radius or ulna. ACT 112: Negative or not required by law. Electronically signed by: Carlos Starr M.D. 08/29/2023 5:[address] 08/29/23 16:05 CT OF THE HEAD WITHOUT CONTRAST CLINICAL HISTORY: fall, [facility] COMPARISON STUDY: Head CT August 06, 2018. TECHNIQUE: Helical axial images of the head were obtained without IV contrast. Automated exposure control was utilized for the study. A dose lowering technique was utilized adhering to the principles of ALARA. FINDINGS: This exam is mildly compromised by motion artifact. No acute intracranial hemorrhage, midline shift or mass effect is present. The ventricular system is stable. White matter hypodensity suggests small vessel disease. The basal cisterns are patent. No extra-axial collections are present. There are no findings to suggest acute dural sinus thrombosis or acute territorial infarct. No calvarial fractures are identified. There is mild mucosal thickening of the right maxillary sinus. IMPRESSION: 1. No acute intracranial findings. Exam mildly compromised by motion artifact. 2. No calvarial fractures. ACT 112: Negative or not required by law. Electronically signed by: Carlos Starr M.D. 08/29/2023 6:03 PM Hip/Pelvis X-Ray 04/17/24 16:05 XR hip KELLIE 2v w pelvis CLINICAL HISTORY: pain post fall COMPARISON STUDY: CT of the abdomen and pelvis August 06, 2018. FINDINGS: There is a healed intertrochanteric fracture of the left femur status post internal fixation. Brachytherapy seeds within the prostate are incidentally noted. There is an acute comminuted mildly displaced intertrochanteric fracture of the right femur. No acute pelvic fractures are present. There is a moderate amount of stool within the rectum. Bifurcated aortoiliac stent graft is partially imaged. IMPRESSION: Acute comminuted mildly displaced intertrochanteric fracture of the right femur. ACT 112: Negative or not required by law. Electronically signed by: Carlos Starr M.D. 08/29/2023 5:40 PM Wrist X-Ray 08/29/23 16:05 XR wrist RT 2V CLINICAL HISTORY: pain post fall COMPARISON: None FINDINGS: No acute fractures are identified. Moderate radiocarpal joint space narrowing is noted. There is associated osteophytosis. Exam is mildly compromised given difficulty positioning. IMPRESSION: 1. No acute fractures within the right wrist. 2. Moderate radiocarpal joint osteoarthritis. ACT 112: Negative or not required by law. Electronically signed by: Carlos Starr M.D. 08/29/2023 5:38 PM Discharge Plan Visit Data Chief Complaint: Hip Pain Stated Complaint: FALL, HIP PAIN, HEAD PAIN ED Provider: Po Correa Discharge Problem: Closed right hip fracture, Fall, Acute hip pain, Anemia Patient Disposition: Admitted As Inpatient Discharge Instructions Interventions: ED Discharge Assessment Last Done: 08/29/23 21:12 Discharge Problem: Closed right hip fracture Qualifiers: Encounter type: initial encounter Qualified Code(s): S72.001A - Fracture of unspecified part of neck of right femur, initial encounter for closed fracture Fall Qualifiers: Encounter type: initial encounter Qualified Code(s): W19.XXXA - Unspecified fall, initial encounter Acute hip pain Qualifiers: Laterality: right Qualified Code(s): M25.551 - Pain in right hip Anemia Qualifiers: Anemia type: unspecified type Qualified Code(s): D64.9 - Anemia, unspecified
[2023-08-29] MEDS: ACETAMINOPHEN 1,000 MG/100 ML VIAL IV STA (16:11)
[2023-08-29 16:12] LABS: Basophils # (auto) 0.03 K/uL (0.00-0.20); Basophils % (auto) 0.5 %; Eosinophils # (auto) 0.14 K/uL (0.00-0.50); Eosinophils % (auto) 2.5 %; Hematocrit (blood only) 35.4 % (42.0-52.0); Hemoglobin 11.2 g/dl (14.0-18.0); Immature Granulocytes # (auto) 0.01 K/uL (0.01-0.20); Immature Granulocytes % (auto) 0.2 %; Lymphocytes # (auto) 2.21 K/uL (1.20-3.40); Lymphocytes % (auto) 40.1 %; Mean Corpuscular Hgb Conc 31.6 g/dL (32.0-36.0); Mean Corpuscular Volume 94.9 fL (80.0-100.0); Mean Platelet Volume 10.3 fL (9.4-12.4); Monocytes # (auto) 0.78 K/uL (0.11-0.59); Monocytes % (auto) 14.2 %; Neutrophils # (auto) 2.34 K/uL (1.40-6.50); Neutrophils % (auto) 42.5 %; Platelet Count 137 K/uL (130-400); RDW Standard Deviation 45.3 fL (36.4-46.3); Red Blood Count 3.73 M/uL (4.70-6.10); White Blood Count 5.51 K/ul (4.8-10.8)
[2023-08-29 16:29] LABS: Albumin Globulin Ratio 1.6 (0.9-2); Albumin Level 4.1 gm/dl (3.4-5.0); BUN Creatinine Ratio 25.2 (10-20); Bilirubin,Total 0.4 mg/dl (0.2-1.0); Calcium 9.4 mg/dl (8.6-10.3); Creatinine Clr Calc Pharmacy 35.5 ml/min; Est GFR (African American) 50.7 ml/min; Est GFR (Non-African American) 43.7 ml/min; Globulin 2.6 gm/dl (2.5-4.0); Potassium 4.4 mmol/L (3.5-5.1); Total Protein 6.7 gm/dl (6.0-8.3)
[2023-08-29 16:40] LABS: INR 1.1 (0.9-1.1); Partial Thromboplastin Time 27 Seconds (21-31); Prothrombin Time 11.5 Seconds (9.0-12.0)
--- NOTE | 2023-08-29 17:29 | XRay Report ---
XR chest 1V not portable CLINICAL HISTORY: Confusion. COMPARISON STUDY: Chest CT January 09, 2019. Chest radiograph August 13, 2023. FINDINGS: This exam is mildly compromised given difficulty positioning. No pneumothorax or pleural ef fusion is present. Cardiomediastinal silhouette is stable. Skin folds project over the chest. Several old left-sided rib fractures are incidentally noted. There is no radiographic evidence for pulmonary edema. IMPRESSION: No acute cardiopulmonary findings. ACT 112: Negative or not required by law. Electronically signed by: Carlos Starr M.D. 08/29/2023 5:28 PM
--- NOTE | 2023-08-29 17:31 | XRay Report ---
XR ankle LT 2V CLINICAL HISTORY: pain post fall COMPARISON: None FINDINGS: Alignment of the left ankle is anatomic. There is no acute fracture. Talar dome is intact. There are no osseous lesions. There is mild soft tissue swelling. IMPRESSION: No fracture or dislocation within the left ankle. ACT 112: Negative or not required by law. Electronically signed by: Carlos Starr M.D. 08/29/2023 5:30 PM
--- NOTE | 2023-08-29 17:35 | XRay Report ---
XR foot LT 2V CLINICAL HISTORY: pain post fall COMPARISON: None FINDINGS: Evaluation of the toes is suboptimal given chronic deformities. However, no acute fracture s are identified. Tarsometatarsal joints are grossly intact. No osseous lesions are identified. There is mild joint space narrowing and osteophytosis within multiple articulations of the left foot. IMPRESSION: No fractures identified within the left foot. ACT 112: Negative or not required by law. Electronically signed by: Carlos Starr M.D. 08/29/2023 5:34 PM
--- NOTE | 2023-08-29 17:37 | XRay Report ---
XR forearm RT 2V CLINICAL HISTORY: pain post fall COMPARISON: None FINDINGS: No fractures are identified within the right radius or ulna. Radiocarpal joint space narro wing is noted. Alignment of the right elbow is anatomic. This exam is mildly compromised given diffic ulty positioning. IMPRESSION: No fractures within the right radius or ulna. ACT 112: Negative or not required by law. Electronically signed by: Carlos Starr M.D. 08/29/2023 5:35 PM
--- NOTE | 2023-08-29 17:39 | XRay Report ---
XR wrist RT 2V CLINICAL HISTORY: pain post fall COMPARISON: None FINDINGS: No acute fractures are identified. Moderate radiocarpal joint space narrowing is noted. Th ere is associated osteophytosis. Exam is mildly compromised given difficulty positioning. IMPRESSION: 1. No acute fractures within the right wrist. 2. Moderate radiocarpal joint osteoarthritis. ACT 112: Negative or not required by law. Electronically signed by: Carlos Starr M.D. 08/29/2023 5:38 PM
--- NOTE | 2023-08-29 17:41 | XRay Report ---
XR hip KELLIE 2v w pelvis CLINICAL HISTORY: pain post fall COMPARISON STUDY: CT of the abdomen and pelvis August 06, 2018. FINDINGS: There is a healed intertrochanteric fracture of the left femur status post internal fixatio n. Brachytherapy seeds within the prostate are incidentally noted. There is an acute comminuted mildl y displaced intertrochanteric fracture of the right femur. No acute pelvic fractures are present. The re is a moderate amount of stool within the rectum. Bifurcated aortoiliac stent graft is partially im aged. IMPRESSION: Acute comminuted mildly displaced intertrochanteric fracture of the right femur. ACT 112: Negative or not required by law. Electronically signed by: Carlos Starr M.D. 08/29/2023 5:40 PM
[2023-08-29 17:46] LABS: Appearance Urine Clear (Clear); Bilirubin Urine Negative (Negative); Blood Urine Negative (Negative); Color Urine Yellow; Glucose Urine UA Negative (Negative); Ketones Urine Negative (Negative); Leukocyte Esterase Urine Negative (Negative); Nitrite Urine Negative (Negative); Protein Urine Negative (Negative); Specific Gravity Urine 1.018 (1.000-1.030); Urobilinogen Urine Negative (Negative); pH Urine 6.5 (4.5-7.5)
--- NOTE | 2023-08-29 18:05 | CT Scan Report ---
CT OF THE HEAD WITHOUT CONTRAST CLINICAL HISTORY: fall, [facility] COMPARISON STUDY: Head CT August 06, 2018. TECHNIQUE: Helical axial images of the head were obtained without IV contrast. Automated exposure con trol was utilized for the study. A dose lowering technique was utilized adhering to the principles o f ALARA. FINDINGS: This exam is mildly compromised by motion artifact. No acute intracranial hemorrhage, midli ne shift or mass effect is present. The ventricular system is stable. White matter hypodensity sugges ts small vessel disease. The basal cisterns are patent. No extra-axial collections are present. There are no findings to suggest acute dural sinus thrombosis or acute territorial infarct. No calvarial f ractures are identified. There is mild mucosal thickening of the right maxillary sinus. IMPRESSION: 1. No acute intracranial findings. Exam mildly compromised by motion artifact. 2. No calvarial fractures. ACT 112: Negative or not required by law. Electronically signed by: Carlos Starr M.D. 08/29/2023 6:03 PM
--- NOTE | 2023-08-29 18:18 | CT Scan Report ---
CT OF THE CERVICAL SPINE WITHOUT CONTRAST CLINICAL HISTORY: midline neck pain COMPARISON STUDY: Cervical spine CT August 06, 2018. TECHNIQUE: Helical axial images of the cervical spine were obtained without IV contrast. Sagittal a nd coronal reconstructions were viewed. Automated exposure control was utilized for the study. A do se lowering technique was utilized adhering to the principles of ALARA. FINDINGS: Alignment of the cervical spine is anatomic. Vertebral body heights are maintained. No acut e cervical spine fracture or subluxation is present. There is no prevertebral edema. Facet joints are intact. Moderate multilevel degenerative disc disease and facet arthrosis within the cervical spine is present. A 1.1 cm groundglass right upper lobe nodule is similar to CT of August 06, 2018. This re reyna indeterminate. IMPRESSION: No acute cervical spine fracture or subluxation. ACT 112: Negative or not required by law. Electronically signed by: Carlos Starr M.D. 08/29/2023 6:15 PM
--- NOTE | 2023-08-29 18:24 | History & Physical Report ---
Date of Service August 29, 2023 Assessment & Plan (1) Closed right hip fracture: Plan: Acetaminophen 1g PO TID Morphine 2-4mg IV q3h PRN for pain Zyprexa 2.5mg PO/IM q4h PRN for delirium Consult orthopedics NPO after midnight, no further medical optimization required, after IV fluids overnight he is medically optimized for surgery Revised cardiac risk index 1 point, 6% 30 day risk of , VA or cardiac arrest which if a clear underestimate as doesn't include his severe dementia Patient has a poor prognosis which his son is aware of irregardless of surgery or not given his underlying dementia and inability to undergo rehabilitation and higher risk of complications as he is unable to follow commands Will give IV fluids as boluses overnight to avoid ongoing fluids which he will likely rip out (2) Fall: Plan: PT/OT will be ordered post operatively (3) CAD (coronary artery disease): Plan: History of VA 8 years ago per son. No recent complaints of chest pain but he is short of breath on exertion. No signs/symptoms of heart failure Continue aspirin post operatively, no longer takes statin from prior admission, presumable due to overal poor prognosis (4) COPD (chronic obstructive pulmonary disease): Plan: PFT 02/2019: Moderate obstruction. Uses inhalers only when sick. No current wheezing but lack of treatment may explain his shortness of breath on exertion. (5) Depression: Plan: Continue his usual mirtazapine and citalopram (6) Alzheimer's dementia: Plan: On no specific medication for this. Already he has some delirium and paranoia Zyprexa 2.5mg IM now then q6h PRN for agitation at risk to self or others (7) Hypertension: Plan: Hold losartan, amlodipine, furosemide on morning of operation, restart on 08/30 Plan VTE Prophyalxis - hold pre-operatively Diet - regular, NPO after midnight Disposition - admit to med/surg Admission and Anticipated Discharge Date Admission Date: August 29, 2023 History of Present Illness Chief Complaint: Unwitnessed fall Right leg pain Primary Care Provider: [facility] Chris Herrera is an 88 year old male who presents to the ER following an unwitnessed fall at [facility]. Unable to get any history from the patient due to dementia. His son at bedside reports he may have got up to use his walked and fallen in the dining [place]iff[place]. He uses a walker at baseline and can walk 100 feet. He has progressive dementia but how he is currently is worse than usual. While in the ER patient has been throwing sheets at staff and grabbing a hold of staff uniforms. Trying to kick staff even with his broken leg. Allergies Allergy/AdvReac Type Severity Reaction Status Date / Time No Known Allergies Allergy Verified 08/29/23 17:29 Home Medications Medication Instructions Recorded Confirmed Type aspirin 81 mg tablet,delayed 81 mg PO QAM 08/06/18 08/29/23 History release acetaminophen 500 mg tablet 500 mg PO Q4H PRN Pain 09/26/18 08/29/23 History loperamide 2 mg capsule 2 mg PO Q12 PRN Diarrhea 09/22/21 08/29/23 History psyllium husk (with sugar) 3 1 tbsp PO DAILY PRN Constipation 09/22/21 08/29/23 History gram/7 gram oral powder (Metamucil (with sugar)) tamsulosin 0.4 mg capsule 0.4 mg PO QDD 09/22/21 08/29/23 History losartan 25 mg tablet 25 mg PO QAM #30 tabs 10/02/21 08/29/23 Rx acetaminophen 325 mg tablet 650 mg PO BIDM 3 GRAMS APAP/08/13/23 08/29/23 History (Tylenol) HOURS acetaminophen 650 mg rectal 650 mg [place] Q4H PRN TEMP > 100.4 08/13/23 08/29/23 History suppository aluminum-mag hydroxide-simethicone 20 ml PO Q4H PRN 08/13/23 08/29/23 History 200 mg-200 mg-20 mg/5 mL oral susp IINDIGESTION/EPIGASTRIC PAIN (Antacid) amlodipine 2.5 mg tablet 2.5 mg PO QAM 08/13/23 08/29/23 History citalopram 10 mg tablet 10 mg PO QAM 08/13/23 08/29/23 History diazepam 5 mg/mL injection solution 5 mg PO Q8H PRN TERMINAL 08/13/23 08/29/23 History RESTLESSNESS furosemide 20 mg tablet (Lasix) 20 mg PO QAM 08/13/23 08/29/23 History mirtazapine 7.5 mg tablet 7.5 mg PO QDD 08/13/23 08/29/23 History ondansetron 4 mg disintegrating 4 mg translingual Q4H PRN 08/13/23 08/29/23 History tablet NAUSEA/VOMITING lorazepam 2 mg/mL oral concentrate 2 mg PO Q4H PRN Anxiety 08/29/23 08/29/23 History Past Med/Surg History Medical History (Updated 08/30/23 @ 06:33 by Rishi Quach MD) Alzheimer's dementia Depression Prostate cancer History of Clostridium difficile colitis Ground glass opacity present on imaging of lung Sepsis due to urinary tract infection Prostate cancer (03/06/14) "Lower urinary tract symptoms, rising PSA to 10.9 Status post completion of biopsies revealing adenocarcinoma the prostate on 03/06/2014 Frances 5+4 Initiation of hormonal suppression 04/16/2014 Status post prostate seed implant 11/17/2014 received 7500 cGy Hospitalization for urosepsis Urinary retention requiring self catheterization Status post completion of radiation therapy with IMRT IGRT 12/24/2014 received 5180 cGy" On 12/31/14 11:03 Kenia Anderson wrote "Lower urinary tract symptoms, rising PSA to 10.9 Status post completion of biopsies revealing adenocarcinoma the prostate on 03/06/2014 Frances 5+4 Initiation of hormonal suppression Status post prostate seed implant 11/17/2014 Hospitalization for urosepsis Urinary retention requiring self catheterization" Bilateral lower extremity edema Surgical History History of hip surgery left, 08/07/2018 S/P AAA repair 2015 S/P cholecystectomy Family History Unknown Coronary heart disease Sister Breast cancer Other Myocardial infarction Denies family history of Ovarian cancer Colorectal cancer Social History Smoking Status: Former smoker Tobacco Type: Cigarettes Cigarettes Per Day: 50 pack year history; Smoking End Date: quit 10 years ago; Second Hand Exposure: No; Do You Dip or Chew Tobacco: No; Hx Alcohol Use: No Hx Substance Use: No Preferred Language: Macedonian Communication Ability: Impaired Communication Ability Comment: can follow some commands, limted at times due to dementia Visual Impairment: No Limitations Hearing Ability: Use of Hearing Aid Statistical Geneticist Required: No Beliefs That Will Affect Care: None marital status: / Current Living Situation: Personal Care Facility Current Living Situation Comment: lives at [facility] current occupational status: retired Other Information That Helps Us Care for You: No Feels Safe at Home: Yes Safety Concerns: Feels Safe At This Time Childhood Exposure to Second-Hand Smoke: Yes Dental Care, Regularly: Yes Physical Activity Frequency: 3-4 Times per Week Assistive Devices: Denture - Upper, Glasses and Walker Assistive Devices Comment: partial denture Review of Systems Review of Systems: Unobtainable due to cognitive status Physical Exam Constitutional: + acute distress (agitated) and + frail appearing; + not well nourished Eyes: + anicteric sclerae; normal pupil size ENMT: Mouth: + dry oral mucous membranes Respiratory: normal respiratory effort, lungs clear to auscultation Cardiovascular: Rate/Rhythm: regular rate and regular rhythm Heart Sounds: no murmur Extremities: normal capillary refill; no pedal edema Gastrointestinal (Abdomen): normal bowel sounds, soft, nontender, no hepatosplenomegaly Musculoskeletal: right leg at rest is shortened and internally rotated at rest, painful whenever he kicks out, PT/DP pulses intact Skin: no rashes, warm and dry Neurologic: moves all extremities (unable to follow commands for neuro exam but moving all 4 extremities), awake and + confused Psychiatric: Orientation: alert; + not oriented x 3 Eye Contact: + poor eye contact Motor Behavior: + psychomotor agitation Affect: + angry affect Thought Process: + tangential thought process and + incoherent thought process Results & Data Results & Data Vital Signs (Past 12 Hours) Vital Signs Temp Pulse Resp BP Pulse Ox O2 Del Method 08/29/23 16:36 57 L 08/29/23 15:27 36.5 C 63 20 153/80 H 93 Room Air Laboratory Results Abnormal lab results 08/29/23 Range/Units 15:38 RBC 3.73 L (4.70-6.10) M/uL Hgb 11.2 L (14.0-18.0) g/dl Hct 35.4 L (42.0-52.0) % MCHC 31.6 L (32.0-36.0) g/dL [place] # (Auto) 0.78 H (0.11-0.59) K/uL BUN 36 H (6-23) mg/dl Creatinine 1.43 H (0.6-1.4) mg/dl BUN/Creatinine Ratio 25.2 H (10-20) Glucose 120 H (70-99(Fasting)) mg/dl Diagnostic Findings CT OF THE HEAD WITHOUT CONTRAST CLINICAL HISTORY: fall, [facility] COMPARISON STUDY: Head CT August 06, 2018. TECHNIQUE: Helical axial images of the head were obtained without IV contrast. Automated exposure control was utilized for the study. A dose lowering technique was utilized adhering to the principles of ALARA. FINDINGS: This exam is mildly compromised by motion artifact. No acute intrac ranial hemorrhage, midline shift or mass effect is present. The ventricular system is stable. White matter hypodensity suggests small vessel disease. The basal cisterns are patent. No extra-axial collections are present. There are no findings to suggest acute dural sinus thrombosis or acute territorial infarct. No calvarial fractures are identified. There is mild mucosal thickening of the right maxillary sinus. IMPRESSION: 1. No acute intracranial findings. Exam mildly compromised by motion artifact. 2. No calvarial fractures. CT OF THE CERVICAL SPINE WITHOUT CONTRAST CLINICAL HISTORY: midline neck pain COMPARISON STUDY: Cervical spine CT August 06, 2018. TECHNIQUE: Helical axial images of the cervical spine were obtained without IV contrast. Sagittal and coronal reconstructions were viewed. Automated exposure control was utilized for the study. A dose lowering technique was utilized adhering to the principles of ALARA. FINDINGS: Alignment of the cervical spine is anatomic. Vertebral body heights are maintained. No acute cervical spine fracture or subluxation is present. There is no prevertebral edema. Facet joints are intact. Moderate multilevel degenerative disc disease and facet arthrosis within the cervical spine is present. A 1.1 cm groundglass right upper lobe nodule is similar to CT of August 06, 2018. This remains indeterminate. IMPRESSION: No acute cervical spine fracture or subluxation. XR forearm RT 2V CLINICAL HISTORY: pain post fall COMPARISON: None FINDINGS: No fractures are identified within the right radius or ulna. Radiocarpal joint space narrowing is noted. Alignment of the right elbow is anatomic. This exam is mildly compromised given difficulty positioning. IMPRESSION: No fractures within the right radius or ulna. XR wrist RT 2V CLINICAL HISTORY: pain post fall COMPARISON: None FINDINGS: No acute fractures are identified. Moderate radiocarpal joint space narrowing is noted. There is associated osteophytosis. Exam is mildly compromised given difficulty positioning. IMPRESSION: 1. No acute fractures within the right wrist. 2. Moderate radiocarpal joint osteoarthritis. XR hip KELLIE 2v w pelvis CLINICAL HISTORY: pain post fall COMPARISON STUDY: CT of the abdomen and pelvis August 06, 2018. FINDINGS: There is a healed intertrochanteric fracture of the left femur status post internal fixation. Brachytherapy seeds within the prostate are incidentally noted. There is an acute comminuted mildly displaced intertrochanteric fracture of the right femur. No acute pelvic fractures are present. There is a moderate amount of stool within the rectum. Bifurcated aortoiliac stent graft is partially imaged. IMPRESSION: Acute comminuted mildly displaced intertrochanteric fracture of the right femur. XR ankle LT 2V CLINICAL HISTORY: pain post fall COMPARISON: None FINDINGS: Alignment of the left ankle is anatomic. There is no acute fracture. Talar dome is intact. There are no osseous lesions. There is mild soft tissue swelling. IMPRESSION: No fracture or dislocation within the left ankle. XR foot LT 2V CLINICAL HISTORY: pain post fall COMPARISON: None FINDINGS: Evaluation of the toes is suboptimal given chronic deformities. However, no acute fractures are identified. Tarsometatarsal joints are grossly intact. No osseous lesions are identified. There is mild joint space narrowing and osteophytosis within multiple articulations of the left foot. IMPRESSION: No fractures identified within the left foot. Medications Administered ER medications given: Acetaminophen 1000 mg IV ECG Rate (beats per minute): 60 Rhythm: normal sinus Findings: + PAC Comparison ECG Date: from (September 22, 2021) Change: the following changes noted (PACs now present) Code Status & VTE Plan Code Status DNR/DNI VTE Prophylaxis Plan VTE Prophylaxis will be ordered: No PG Care Time/CCT Total # of Minutes Spent Total Time Spent with Patient: Total time spent is greater than 50% in coordination of care (as documented) at patient's floor/unit and/or counseling patient: Coding Level of Care Code 12557 INT INP/OBS CARE 2/55MIN Diagnoses Closed right hip fracture S72.001A Fall W19.XXXA Encounter type: initial encounter Coronary artery disease involving hoopa coronary artery of hoopa heart without angina pectoris I25.10 Coronary Disease-Associated Artery/Lesion type: hoopa artery [place] vs. transplanted heart: hoopa heart Associated angina: without angina Chronic obstructive pulmonary disease, unspecified COPD type J44.9 COPD type: unspecified COPD Depression F32.A Alzheimer's dementia G30.9; F02.80 Hypertension I10 (2) Fall Encounter type: initial encounter Qualified Code(s): W19.XXXA - Unspecified fall, initial encounter (3) CAD (coronary artery disease) Coronary Disease-Associated Artery/Lesion type: hoopa artery [place] vs. transplanted heart: hoopa heart Associated angina: without angina Qualified Code(s): I25.10 - Atherosclerotic heart disease of hoopa coronary artery without angina pectoris (4) COPD (chronic obstructive pulmonary disease) COPD type: unspecified COPD Qualified Code(s): J44.9 - Chronic obstructive pulmonary disease, unspecified
[2023-08-29] MEDS: MoRPHine SULFATE 2 MG/ML CARP IV STA (19:01)
[2023-08-29] MEDS: OLANZapine 10 MG/2.1 ML SDV IM STA (19:21)
[2023-08-29] MEDS: ONDANSETRON INJ 2 MG/ML 2 ML VIAL IV STA (19:21)
--- NOTE | 2023-08-29 19:44 | Electrocardiogram Report ---
Test Reason : Blood Pressure : / mmHG Vent. Rate : 060 BPM Atrial Rate : 060 BPM P-R Int : 166 ms QRS Dur : 090 ms QT Int : 428 ms P-R-T Axes : 071 015 060 degrees QTc Int : 428 ms Sinus rhythm with Premature atrial complexes Low voltage QRS Borderline ECG When compared with ECG of 22-SEP-2021 15:08, Premature atrial complexes are now Present Confirmed by Shane Freeman ([id number]) on 08/29/2023 7:44:14 PM Referred By: Confirmed By:Cesar Freeman
[2023-08-29] MEDS ORDERED: NALOXONE HCL 0.4 MG/1 ML VIAL/CARP IV PRN (21:05)
[2023-08-29] MEDS ORDERED: OLANZapine 10 MG/2.1 ML SDV IM PRN (21:05)
[2023-08-29] MEDS ORDERED: bisacodyL 10 MG SUPP PR PRN (21:05)
[2023-08-29] MEDS ORDERED: OLANZAPINE 2.5 MG TAB PO PRN (21:05)
[2023-08-29] MEDS ORDERED: MAGNESIUM HYDROXIDE SUSP 30 ML UDC PO PRN (21:05)
[2023-08-29] MEDS: MoRPHine SULFATE 4 MG/ML 1 ML CARP\\VIAL IV PRN (21:40)
[2023-08-29] MEDS: LACTATED RINGER'S 500 ML IV ONE (22:27)
[2023-08-29] MEDS: MIRTAZAPINE TAB 15 MG TAB PO SCH (22:28)
[2023-08-29] MEDS: TAMSULOSIN HCL 0.4 MG CAP PO SCH (22:28)
[2023-08-30] MEDS: LACTATED RINGER'S 500 ML IV ONE ×2 (00:39→06:00)
[2023-08-30] MEDS ORDERED: ONDANSETRON INJ 2 MG/ML 2 ML VIAL IV PRN ×2 (06:47→09:59)
[2023-08-30 07:34] LABS: Basophils # (auto) 0.02 K/uL (0.00-0.20); Basophils % (auto) 0.3 %; Eosinophils # (auto) 0.04 K/uL (0.00-0.50); Eosinophils % (auto) 0.7 %; Hematocrit (blood only) 30.5 % (42.0-52.0); Hemoglobin 9.8 g/dl (14.0-18.0); Immature Granulocytes # (auto) 0.02 K/uL (0.01-0.20); Immature Granulocytes % (auto) 0.3 %; Lymphocytes % (auto) 18.5 %; Mean Corpuscular Hgb Conc 32.1 g/dL (32.0-36.0); Mean Corpuscular Volume 93.3 fL (80.0-100.0); Mean Platelet Volume 10.2 fL (9.4-12.4); Monocytes # (auto) 0.95 K/uL (0.11-0.59); Monocytes % (auto) 15.9 %; Neutrophils # (auto) 3.83 K/uL (1.40-6.50); Neutrophils % (auto) 64.3 %; Platelet Count 112 K/uL (130-400); RDW Coefficient of Variation 12.8 % (11.5-14.5); RDW Standard Deviation 44.2 fL (36.4-46.3); Red Blood Count 3.27 M/uL (4.70-6.10); White Blood Count 5.96 K/ul (4.8-10.8)
[2023-08-30 07:53] LABS: BUN Creatinine Ratio 25.2 (10-20); Est GFR (African American) 60.8 ml/min; Est GFR (Non-African American) 52.5 ml/min; Potassium 4.6 mmol/L (3.5-5.1)
--- NOTE | 2023-08-30 08:49 | Anesthesiology Consultation ---
Date of Service August 30, 2023 Assessment & Plan (1) Encounter for pre-operative examination: Chart Review Chart Review: Acceptable Risk for Surgery and Patient NOT seen in Pre Admission Testing Consults Requested none History Surgery Operation Date: 08/30/23 10:30 Proposed Procedures p Right Long Troch Nail - Lei Irving MD Height/Weight Height: 5 ft 11 in Weight: 70.1 kg Allergies Allergy/AdvReac Type Severity Reaction Status Date / Time No Known Allergies Allergy Verified 08/29/23 17:29 Medications Home Medications Medication Instructions Recorded Confirmed Last Taken aspirin 81 mg tablet,delayed 81 mg PO QAM 08/06/18 08/29/23 08/13/23 release acetaminophen 500 mg tablet 500 mg PO Q4H PRN Pain 09/26/18 08/29/23 Unknown loperamide 2 mg capsule 2 mg PO Q12 PRN Diarrhea 09/22/21 08/29/23 Unknown psyllium husk (with sugar) 3 1 tbsp PO DAILY PRN Constipation 09/22/21 08/29/23 Unknown gram/7 gram oral powder (Metamucil (with sugar)) tamsulosin 0.4 mg capsule 0.4 mg PO QDD 09/22/21 08/29/23 08/13/23 losartan 25 mg tablet 25 mg PO QAM #30 tabs 10/02/21 08/29/23 08/13/23 acetaminophen 325 mg tablet 650 mg PO BIDM 3 GRAMS APAP/08/13/23 08/29/23 08/13/23 (Tylenol) HOURS acetaminophen 650 mg rectal 650 mg [place] Q4H PRN TEMP > 100.4 08/13/23 08/29/23 Unknown suppository aluminum-mag hydroxide-simethicone 20 ml PO Q4H PRN 08/13/23 08/29/23 Unknown 200 mg-200 mg-20 mg/5 mL oral susp IINDIGESTION/EPIGASTRIC PAIN (Antacid) amlodipine 2.5 mg tablet 2.5 mg PO QAM 08/13/23 08/29/23 08/13/23 citalopram 10 mg tablet 10 mg PO QAM 08/13/23 08/29/23 08/13/23 diazepam 5 mg/mL injection solution 5 mg PO Q8H PRN TERMINAL 08/13/23 08/29/23 Unknown RESTLESSNESS furosemide 20 mg tablet (Lasix) 20 mg PO QAM 08/13/23 08/29/23 08/13/23 mirtazapine 7.5 mg tablet 7.5 mg PO QDD 08/13/23 08/29/23 08/13/23 ondansetron 4 mg disintegrating 4 mg translingual Q4H PRN 08/13/23 08/29/23 Unknown tablet NAUSEA/VOMITING lorazepam 2 mg/mL oral concentrate 2 mg PO Q4H PRN Anxiety 08/29/23 08/29/23 Unknown Active Medications Generic Name Dose Route Start Last Admin Trade Name Freq PRN Reason Stop Dose Admin Mirtazapine 7.5 mg 08/29/23 21:35 08/29/23 22:40 Mirtazapine Tab 15 Mg Tab PO 09/28/23 21:34 7.5 mg QDD DAVE Administration Morphine Sulfate 4 mg 08/29/23 21:05 08/30/23 06:31 Morphine Sulfate 4 Mg/Ml 1 Ml Carp\\Vial IV 09/12/23 21:04 4 mg Q3H PRN Administration Pain (6,7,8,9,10) Tamsulosin HCl 0.4 mg 08/29/23 21:35 08/29/23 22:40 Tamsulosin Hcl 0.4 Mg Cap PO 09/28/23 21:34 0.4 mg QDD DAVE Administration Past Medical History Medical History Alzheimer's dementia Depression Prostate cancer History of Clostridium difficile colitis Ground glass opacity present on imaging of lung Sepsis due to urinary tract infection Prostate cancer (03/06/14) "Lower urinary tract symptoms, rising PSA to 10.9 Status post completion of biopsies revealing adenocarcinoma the prostate on 03/06/2014 Frances 5+4 Initiation of hormonal suppression 04/16/2014 Status post prostate seed implant 11/17/2014 received 7500 cGy Hospitalization for urosepsis Urinary retention requiring self catheterization Status post completion of radiation therapy with IMRT IGRT 12/24/2014 received 5180 cGy" On 12/31/14 11:03 Kenia Anderson wrote "Lower urinary tract symptoms, rising PSA to 10.9 Status post completion of biopsies revealing adenocarcinoma the prostate on 03/06/2014 Frances 5+4 Initiation of hormonal suppression Status post prostate seed implant 11/17/2014 Hospitalization for urosepsis Urinary retention requiring self catheterization" Bilateral lower extremity edema Past Family History Family History Unknown Coronary heart disease Sister Breast cancer Other Myocardial infarction Denies family history of Ovarian cancer Colorectal cancer Past Surgical History Surgical History History of hip surgery left, 08/07/2018 S/P AAA repair 2015 S/P cholecystectomy Social History Smoking Status: Former smoker tobacco type: cigarettes Smoking cigarettes per day: 50 pack year history Do You Dip or Chew Tobacco: No Smoking End Date: quit 10 years ago Hx Alcohol Use: No Hx Substance Use: No substance use type: does not use Physical Exam Vital Signs Last Vital Signs Temp 97.7 F 08/29/23 22:00 Pulse 66 08/29/23 22:00 Resp 18 08/30/23 07:41 BP 112/58 L 08/30/23 07:41 Pulse Ox 96 08/29/23 22:00 O2 Del Method Room Air 08/29/23 22:00 Testing Laboratory Results 08/30/23 06:59 08/30/23 06:59 PT 11.5 Seconds (9.0-12.0) 08/29/23 15:38 INR 1.1 (0.9-1.1) 08/29/23 15:38 APTT 27 Seconds (21-31) 08/29/23 15:38 Urine Color Yellow 08/29/23 17:03 Urine Appearance Clear (Clear) 08/29/23 17:03 Urine pH 6.5 (4.5-7.5) 08/29/23 17:03 Ur Specific Dawson 1.018 (1.000-1.030) 08/29/23 17:03 Urine Protein Negative (Negative) 08/29/23 17:03 Urine Glucose (UA) Negative (Negative) 08/29/23 17:03 Urine Ketones Negative (Negative) 08/29/23 17:03 Urine Nitrite Negative (Negative) 08/29/23 17:03 Ur Leukocyte Esterase Negative (Negative) 08/29/23 17:03 Electrocardiogram Date: 08/29/23 Findings: + NSR @ (with PACs)
[2023-08-30] MEDS: CITALOPRAM 20 MG TAB PO SCH (09:00)
--- NOTE | 2023-08-30 09:43 | Orthopedic Progress Note ---
Date of Service August 30, 2023 Assessment & Plan (1) Fracture, intertrochanteric, right femur: Plan: The patient's consent form was updated to reflect that Dr. Irving will do his surgery later today. I spoke with his son by telephone, and had secondary confirmation performed by Rena the charge nurse. Consent form was signed by me. All questions were answered for his son Chris. Admission and Anticipated Discharge Date Admission Date: August 29, 2023 Supervising Physician Co-Signing Physician Notes I spoke with the son this morning. Reviewed the risks and benefits of the surgery. He would like to proceed. All questions were answered. Informed consents already been obtained. Subjective This 88-year-old male is seen today in [facility] preop. I attempted to see him in his room, however he had already departed for the OR. He is scheduled for an IM nail for his right femoral fracture later today. Physical Exam Physical Exam: General: Obtunded elderly individual, who is sleeping. He is very difficult to awaken. No external abnormality is noted of the right leg. Skin: Warm and dry with fair turgor. No rashes. No ecchymosis or edema. Musculoskeletal: The patient did not cooperate nor follow commands. Motion of the hip was not attempted secondary to the known fracture. Results & Data Vital Signs (Past 12 Hours) Vital Signs Temp Pulse Resp BP Pulse Ox Pulse Ox O2 Del Method 08/30/23 09:22 Room Air 08/30/23 09:00 93 08/30/23 07:41 18 112/58 L 08/29/23 22:00 Room Air 08/29/23 22:00 36.5 C 66 20 114/63 96 Room Air 08/29/23 22:00 36.5 C 66 20 114/63 96 Room Air O2 Del Method 08/30/23 09:22 08/30/23 09:00 Room Air 08/30/23 07:41 08/29/23 22:00 08/29/23 22:00 08/29/23 22:00
[2023-08-30] MEDS: LACTATED RINGER'S 1,000 ML IV SCH (09:44)
[2023-08-30] MEDS ORDERED: fentaNYL citrate PF 100 MCG/2 ML VIAL IV PRN (09:59)
[2023-08-30] MEDS ORDERED: ATROPINE SULFATE 0.1 MG/ML 10ML SYR IV PRN (09:59)
[2023-08-30] MEDS ORDERED: ePHEDrine sulfate 50 MG/ML AMP IV PRN (09:59)
[2023-08-30] MEDS ORDERED: DEXAMETHASONE SOD INJ 4 MG/ML VIAL ONE (10:07)
[2023-08-30] MEDS ORDERED: LIDOCAINE 2% 2 ML VIAL/AMP(20MG/ML) INFIL ONE (10:07)
[2023-08-30] MEDS ORDERED: fentaNYL citrate PF 100 MCG/2 ML VIAL ONE (10:07)
[2023-08-30] MEDS ORDERED: PROPOFOL IV EMULSION 10 MG/ML 20 ML VIAL IV ONE (10:07)
[2023-08-30] MEDS ORDERED: ONDANSETRON INJ 2 MG/ML 2 ML VIAL ONE (10:07)
--- NOTE | 2023-08-30 11:03 | Orthopedic Consultation ---
Date of Consultation August 30, 2023 Assessment & Plan (1) Fracture, intertrochanteric, right femur: difficult situation given the patient's severe Alzheimer's dementia. Surgery is indicated to help with patient's pain as well as to possibly restore ambulatory status, but at the very least to help with his comfort and ability to be cared for, decrease the risk of bedsores pneumonia and other complications associated with nonoperative treatment of intertrochanteric femur fractures. As stated above all of the risks and potential benefits of surgery were discussed by my physicians public health assistant German Powell PA-C with the patient's son who is the power of assistant city attorney. He has elected to proceed with surgery. He has been n.p.o. since midnight last night. Plan to proceed to the operating room for open reduction internal fixation of right intertrochanteric femur fracture using a long cephalomedullary nail. (2) Alzheimer's dementia: History of Present Illness Attending Physician: Andres Martines MD History of Present Illness Chris Herrera is an 88 year old male who presented to the ER yesterday following an unwitnessed fall at [facility]. Unable to get any history from the patient due to dementia. His son was at bedside reports he may have got up to use his walked and fallen in the dining gifford. He uses a walker at baseline and can walk 100 feet. He has progressive dementia but how he is currently is worse than usual. While in the ER patient was throwing sheets at staff and grabbing a hold of staff uniforms. Trying to kick staff even with his broken leg.Orthopedics was consulted for evaluation and management of his right hip after x-rays showed a displaced intertrochanteric femur fracture. Patient was seen and examined on the floor this morning. He was unable to answer any of my questions or carry on a conversation. with physicians public health assistant German Powell was able to speak with his son about his diagnosis and did obtain informed consent for operative fixation of his hip fracture. Allergies Allergy/AdvReac Type Severity Reaction Status Date / Time No Known Allergies Allergy Verified 08/29/23 17:29 Home Medications Medication Instructions Recorded Confirmed Type aspirin 81 mg tablet,delayed 81 mg PO QAM 08/06/18 08/29/23 History release acetaminophen 500 mg tablet 500 mg PO Q4H PRN Pain 09/26/18 08/29/23 History loperamide 2 mg capsule 2 mg PO Q12 PRN Diarrhea 09/22/21 08/29/23 History psyllium husk (with sugar) 3 1 tbsp PO DAILY PRN Constipation 09/22/21 08/29/23 History gram/7 gram oral powder (Metamucil (with sugar)) tamsulosin 0.4 mg capsule 0.4 mg PO QDD 09/22/21 08/29/23 History losartan 25 mg tablet 25 mg PO QAM #30 tabs 10/02/21 08/29/23 Rx acetaminophen 325 mg tablet 650 mg PO BIDM 3 GRAMS APAP/08/13/23 08/29/23 History (Tylenol) HOURS acetaminophen 650 mg rectal 650 mg [place] Q4H PRN TEMP > 100.4 08/13/23 08/29/23 History suppository aluminum-mag hydroxide-simethicone 20 ml PO Q4H PRN 08/13/23 08/29/23 History 200 mg-200 mg-20 mg/5 mL oral susp IINDIGESTION/EPIGASTRIC PAIN (Antacid) amlodipine 2.5 mg tablet 2.5 mg PO QAM 08/13/23 08/29/23 History citalopram 10 mg tablet 10 mg PO QAM 08/13/23 08/29/23 History diazepam 5 mg/mL injection solution 5 mg PO Q8H PRN TERMINAL 08/13/23 08/29/23 History RESTLESSNESS furosemide 20 mg tablet (Lasix) 20 mg PO QAM 08/13/23 08/29/23 History mirtazapine 7.5 mg tablet 7.5 mg PO QDD 08/13/23 08/29/23 History ondansetron 4 mg disintegrating 4 mg translingual Q4H PRN 08/13/23 08/29/23 History tablet NAUSEA/VOMITING lorazepam 2 mg/mL oral concentrate 2 mg PO Q4H PRN Anxiety 08/29/23 08/29/23 History Patient History Medical History Alzheimer's dementia Depression Prostate cancer History of Clostridium difficile colitis Ground glass opacity present on imaging of lung Sepsis due to urinary tract infection Prostate cancer (03/06/14) "Lower urinary tract symptoms, rising PSA to 10.9 Status post completion of biopsies revealing adenocarcinoma the prostate on 03/06/2014 Frances 5+4 Initiation of hormonal suppression 04/16/2014 Status post prostate seed implant 11/17/2014 received 7500 cGy Hospitalization for urosepsis Urinary retention requiring self catheterization Status post completion of radiation therapy with IMRT IGRT 12/24/2014 ayesha martinez 5180 cGy" On 12/31/14 11:03 Kenia Morrell Anderson wrote "Lower urinary tract symptoms, rising PSA to 10.9 Status post completion of biopsies revealing adenocarcinoma the prostate on 03/06/2014 Frances 5+4 Initiation of hormonal suppression Status post prostate seed implant 11/17/2014 Hospitalization for urosepsis Urinary retention requiring self catheterization" Bilateral lower extremity edema Surgical History History of hip surgery left, 08/07/2018 S/P AAA repair 2015 S/P cholecystectomy Family History Unknown Coronary heart disease Sister Breast cancer Other Myocardial infarction Denies family history of Ovarian cancer Colorectal cancer Social History Smoking Status: Former smoker Tobacco Type: Cigarettes Cigarettes Per Day: 50 pack year history; Smoking End Date: quit 10 years ago; Second Hand Exposure: No; Do You Dip or Chew Tobacco: No; Hx Alcohol Use: No Hx Substance Use: No Preferred Language: Yakut Communication Ability: Impaired Communication Ability Comment: can follow some commands, limted at times due to dementia Visual Impairment: No Limitations Hearing Ability: Use of Hearing Aid Front End Architect Required: No Beliefs That Will Affect Care: None marital status: / Current Living Situation: Personal Care Facility Current Living Situation Comment: lives at [facility] current occupational status: retired Other Information That Helps Us Care for You: No Feels Safe at Home: Yes Safety Concerns: Feels Safe At This Time Childhood Exposure to Second-Hand Smoke: Yes Dental Care, Regularly: Yes Physical Activity Frequency: 3-4 Times per Week Assistive Devices: Walker Assistive Devices Comment: partial denture Physical Exam Physical Exam: On exam he is lying supine in bed, a lot rousable and making eye contact but unable to answer questions. Marginally able to follow commands as he was able to wiggle his ankle up and down on command. Would not wiggle toes for me however. Could not answer whether or not he felt me touching over the foot. Dorsalis pedis pulse was palpable. Toes are warm well-perfused. The skin over the right hip was intact. The leg was shortened and externally rotated consistent with a displaced hip fracture. Results & Data Vital Signs (Past 12 Hours) Vital Signs Temp Pulse Resp BP Pulse Ox Pulse Ox O2 Del Method 08/30/23 09:46 36.7 C 65 20 116/72 95 Room Air 08/30/23 09:22 Room Air 08/30/23 09:00 93 08/30/23 07:41 18 112/58 L O2 Del Method 08/30/23 09:46 08/30/23 09:22 08/30/23 09:00 Room Air 08/30/23 07:41 Diagnostic Findings X-rays done yesterday in the emergency room reviewed. These show a displaced intertrochanteric femur fracture. He has a long trochanteric start point cephalomedullary nail in his contralateral hip
[2023-08-30] MEDS: ceFAZolin 2,000 MG/15 ML IV PUSH IV ONE (12:00)
[2023-08-30] MEDS ORDERED: ePHEDrine sulfate 50 MG/5 ML SYR ONE (12:15)
[2023-08-30] MEDS ORDERED: PHENYLEPHRINE 100MCG/ML 10ML SYR IV ONE (12:15)
[2023-08-30] MEDS: ceFAZolin 2000MG 2,000 MG/15 ML SYR IV ONE (12:39)
[2023-08-30] MEDS: BUPIVACAINE 0.5 % 5 MG/1 ML MPF 30ML VIAL ONE (12:40)
--- NOTE | 2023-08-30 13:24 | Operative Report ---
Post Operative Report Pre & Post Diagnosis Operation Date: 08/30/23 10:30 Preoperative diagnosis: Displaced right intertrochanteric femur fracture. Postoperative diagnosis: Displaced right intertrochanteric femur fracture. I identified the patient and participated in the time-out.: Yes Procedure Operation Date: 08/30/23 10:30 Open reduction internal fixation right displaced intertrochanteric femur fra cture with a cephalomedullary nail Surgeon Lei Irving MD Cotton Grower FANNIE Ng PA-C. No resident or fellow was available to assist. Estimated Blood Loss 50 Findings Consistent with Post-Op Diagnosis Specimens None Anesthesia Type General Complications none Disposition Disposition: Recovery Room Indications 88-year-old male, with medical history significant for severe Alzheimer's dementia, ambulates with a walker at baseline short distances, fell yesterday at his care facility. Was complaining of right hip pain. Brought to the emergency room yesterday where x-rays demonstrated a displaced intertrochanteric femur fracture. My partner Dr. Castaneda was on-call. I was in the operating room today, and available to manage the patient surgically. A long discussion was had with the patient's son who is his power of county attorney about treatment options including surgical versus nonsurgical management. After reviewing all these he elected to proceed with surgery. All questions were answered. Informed consent was signed. Description of Procedure Patient was identified in the preoperative holding area where his surgical site was marked. He was brought back to the main operating room where general anesthesia was administered on the hospital bed. He was then carefully moved onto the Steris fracture table. Perineal post was placed and he was gently slid down against the perineal post. The feet were secured and well-padded foam boots on the fracture table bilaterally. The nonoperative left leg was lowered toward the floor, and the operative hip was slightly flexed to facilitate lateral fluoroscopic imaging of the right hip. A multidisciplinary timeout was then called. All in the room were in agreement. We began by performing a reduction maneuver of the hip using the fracture table. Gross traction was applied to the operative extremity to regain the length of the fracture. The foot was then slightly internally rotated. We were able to achieve near anatomic reduction of the fracture. Once this was complete the surgical site was prepped and draped in the usual sterile fashion. Prior to incision another multidisciplinary timeout was called. Again all were in agreement. I began by making incision approximately 3 fingerbreadths above the tip of the greater trochanter in line with the femur. Incision was carried down through the subcutaneous tissues to the level of the fascia. A guidewire was then inserted through the fascia and the starting point was optimized on the AP and lateral fluoroscopic views. Guidewire was then driven down under fluoroscopic guidance to the level lesser trochanter. The opening reamer was then used. A ball-tipped guidewire was then advanced down to the level of the knee. The distance measured 410 mm. I elected to use a 400 mm long nail. We then reamed over the guidewire up to a 13 mm diameter at which point we had good chatter at the isthmus. An 11 mm diameter 400 mm long right intramedullary nail was then opened up. This was then inserted over the guidewire to the level of the isthmus. The guidewire was then removed and the nail was advanced all the way down to the level of the knee. The position of the cephalomedullary helical blade was then optimized under fluoroscopic visualization. A small stab incision was made on the lateral aspect of the femur through the outrigger device using a long knife handle. The guide was then inserted through the skin and situated down on the lateral aspect of the femur. Once this was optimized on the AP and lateral fluoroscopic views the guidewire was driven up into the femoral head to the subchondral bone. It measured at 105 mm. I elected to use 100 mm long helical blade. The opening reamer was used followed by the step reamer. The helical blade was then inserted over the guidewire. Once the blade was in the appropriate position I then compressed the fracture by rotating the screw counterclockwise. Excellent fixation was obtained. At this point the locking screw was tightened down from the top in order to statically locked the helical blade. Our final fluoroscopic views of the proximal femur were then taken. We then moved to the distal femur where a single cross lock screw was placed using perfect circles technique. This was 42 mm in length by 5 mm diameter. Excellent fixation was obtained. Final fluoroscopic images were then obtained of the distal femur. These were saved to the system. Wounds were irrigated with copious amounts of normal saline. Fascial incision in the proximal wound was closed with 0 Vicryl sutures. Deep dermal layer was closed with 2-0 Vicryl sutures. Guillermina were used for the skin. Sterile dressings were applied including Xeroform 4 x 4 and Tegaderm dressing. Patient was then awoke from anesthesia and transferred the recovery room in stable condition. Postoperative course: Patient will be readmitted to the internal medicine service. He will be weightbearing as tolerated with a walker and assistance. Fall precaution should be taken. Osteoporosis management per internal medicine service. Follow-up with orthopedics 2 weeks after discharge. DVT prophylaxis recommended as aspirin. I attest to the content of the Intraoperative Record and any orders documented therein. Any exceptions are noted below.
--- NOTE | 2023-08-30 13:26 | Operative Report ---
Post Operative Report Pre & Post Diagnosis Operation Date: 08/30/23 10:30 Pre-Op Diagnosis: HIP FRACTURE Post-Op Diagnosis: HIP FRACTURE I identified the patient and participated in the time-out.: Yes Procedure Operation Date: 08/30/23 10:30 Actual Procedures p Right Long Troch Nail(Right) - Lei Irving MD Surgeon Lei Irving MD Bar Helper FANNIE Ng PA-C. No resident or fellow was available to assist. Estimated Blood Loss 50 Findings Consistent with Post-Op Diagnosis Specimens none Description of Procedure I was present during the entire case assisting with positioning, prepping, draping, wound retraction, wound closure and dressing application. No fellow present. Please see Dr. Irving procedure note for specifics of the case. I attest to the content of the Intraoperative Record and any orders documented therein. Any exceptions are noted below.
[2023-08-30] MEDS ORDERED: ONDANSETRON 4 MG OD TAB PO PRN (13:28)
[2023-08-30] MEDS ORDERED: ALUMINUM/MAGNESIUM SUSP 30 ML UDC PO PRN (13:28)
--- NOTE | 2023-08-30 14:20 | Anesthesiology Progress Note ---
Date of Service August 30, 2023 Anesthesia Post Procedure Vital Signs Vital Signs: Temp Pulse Pulse Pulse Resp BP BP 08/30/23 14:10 70 16 119/61 08/30/23 14:00 78 18 119/75 08/30/23 13:50 68 14 105/60 08/30/23 13:40 64 16 114/57 L 08/30/23 13:30 97.3 F L 66 16 115/62 08/30/23 09:46 98.1 F 65 20 116/72 08/30/23 09:22 08/30/23 09:00 08/30/23 07:41 18 112/58 L 08/29/23 22:00 08/29/23 22:00 97.7 F 66 20 114/63 08/29/23 22:00 97.7 F 66 20 114/63 08/29/23 19:53 66 14 118/61 08/29/23 19:30 65 08/29/23 19:27 56 L 14 128/76 08/29/23 16:36 57 L 08/29/23 15:27 97.7 F 63 20 153/80 H Pulse Ox Pulse Ox O2 Del Method O2 Del Method O2 Flow Rate 08/30/23 14:10 100 Oxymask 3 08/30/23 14:00 100 Oxymask 3 08/30/23 13:50 100 Oxymask 3 08/30/23 13:40 100 Oxymask 6 08/30/23 13:30 100 Oxymask 6 08/30/23 09:46 95 Room Air 08/30/23 09:22 Room Air 08/30/23 09:00 93 Room Air 08/30/23 07:41 08/29/23 22:00 Room Air 08/29/23 22:00 96 Room Air 08/29/23 22:00 96 Room Air 08/29/23 19:53 99 Room Air 08/29/23 19:30 08/29/23 19:27 08/29/23 16:36 08/29/23 15:27 93 Room Air Transfer of Care Handoff Completed per policy Notes Mental Status: alert / awake / arousable and participated in evaluation Patient Amnestic to Procedure: Yes Nausea / Vomiting: adequately controlled Pain: adequately controlled Airway Patency, RR, SpO2: stable & adequate BP & HR: stable & adequate Hydration State: stable & adequate Anesthetic Complications: no major complications apparent and Pt Satisfied with anesthetic care
--- NOTE | 2023-08-30 14:55 | Fluoroscopy Report ---
FL femur RT 2V CLINICAL HISTORY: RT FEMUR FX, LONG TROCHNAIL COMPARISON STUDY: Right hip radiographs August 29, 2023. FLUOROSCOPY TIME: 2 minutes and 25 seconds. Ka, r: 20.24 mGy FLUOROSCOPIC IMAGES: 4 FINDINGS: Fluoroscopy was provided during open reduction and internal fixation of the intertrochanter ic fracture of the right femur with trochanteric nail. Fracture alignment has significantly improved and appears near anatomic. The hardware is intact. There are no unexpected radiopaque foreign bodies. IMPRESSION: Fluoroscopy provided during open reduction and internal fixation of the intertrochanteri c fracture of the right femur. ACT 112: Negative or not required by law. Electronically signed by: Carlos Starr M.D. 08/30/2023 2:53 PM
--- NOTE | 2023-08-30 16:19 | Hospitalist Progress Note ---
Date of Service August 30, 2023 Assessment & Plan (1) Closed right hip fracture: Plan: He underwent open reduction internal fixation today, August 29, with a long nail. Appreciate orthopedic consultation and recommendations. OT and PT assessments have been ordered. (2) Fall: Plan: Mechanical fall caused the right femur fracture. OT and PT assessments are pending (3) CAD (coronary artery disease): Plan: Stable. Continue current medical management. (4) COPD (chronic obstructive pulmonary disease): Plan: Stable. Continue current medical management. Nebulizer as needed (5) Depression: Plan: Stable continue his usual mirtazapine and citalopram (6) Alzheimer's dementia: Plan: Stable. Supportive care. IM Zyprexa as needed for agitation if it occurs (7) Hypertension: Plan: Stable. Continue current medical management Plan Anticipate eventual discharge to rehabilitation facility sometime early next week Admission and Anticipated Discharge Date Admission Date: August 29, 2023 Subjective The patient was seen postoperatively and he is asleep. Vital signs are stable. He underwent open reduction internal fixation right femur fracture with long nail. Daily labs are ordered. OT and PT assessments are ordered and pending. He will undoubtedly need placement at the time of discharge. Review of Systems 2 Review of Systems: The patient is currently asleep and unable to answer any questions regarding review of systems Physical Exam 2 Physical Exam: General-the patient is asleep postoperatively. No fever. HEENT-head atraumatic and normocephalic Neck-no lymphadenopathy or thyromegaly, trachea midline Chest-clear to auscultation anteriorly. No rales, wheezing or rhonchi Cardiac-regular rate and rhythm, normal S1 and S2, grade 2/6 systolic murmur Abdomen-normal bowel sounds, no hepatosplenomegaly Extremities-right hip surgical site is heavily bandaged. No peripheral edema Neuro-the patient is asleep postoperatively. Cannot assess Psych-asleep. Cannot assess Results & Data Results & Data Vital Signs (Past 12 Hours) Vital Signs Temp Pulse Pulse Pulse Resp BP Pulse Ox 08/30/23 15:25 36.7 C 64 18 110/64 95 08/30/23 15:12 36.6 C 80 18 103/61 96 08/30/23 14:45 68 18 110/68 100 08/30/23 14:29 36.5 C 71 16 102/71 94 08/30/23 14:20 75 18 111/70 95 08/30/23 14:10 70 16 119/61 100 08/30/23 14:00 78 18 119/75 100 08/30/23 13:50 68 14 105/60 100 08/30/23 13:40 64 16 114/57 L 100 08/30/23 13:30 36.3 C L 66 16 115/62 100 08/30/23 09:46 36.7 C 65 20 116/72 95 08/30/23 09:22 08/30/23 09:00 08/30/23 07:41 18 112/58 L Pulse Ox O2 Del Method O2 Del Method O2 Flow Rate 08/30/23 15:25 Room Air 08/30/23 15:12 Room Air 08/30/23 14:45 Oxymask 2 08/30/23 14:29 Oxymask 2 08/30/23 14:20 Room Air 08/30/23 14:10 Oxymask 3 08/30/23 14:00 Oxymask 3 08/30/23 13:50 Oxymask 3 08/30/23 13:40 Oxymask 6 08/30/23 13:30 Oxymask 6 08/30/23 09:46 Room Air 08/30/23 09:22 Room Air 08/30/23 09:00 93 Room Air 08/30/23 07:41 Laboratory Results 08/30/23 06:59 08/30/23 06:59 PG Care Time/CCT Total # of Minutes Spent Total Time Spent with Patient: Total time spent is greater than 50% in coordination of care (as documented) at patient's floor/unit and/or counseling patient: Coding Level of Care Code 58813 SUB INP/OBS CARE 3/50MIN Diagnoses Closed right hip fracture S72.001A Encounter type: initial encounter Fall W19.XXXA Encounter type: initial encounter Coronary artery disease involving craig coronary artery of craig heart without angina pectoris I25.10 Coronary Disease-Associated Artery/Lesion type: craig artery [place] vs. transplanted heart: craig heart Associated angina: without angina Chronic obstructive pulmonary disease, unspecified COPD type J44.9 COPD type: unspecified COPD Depression F32.A Alzheimer's dementia G30.9; F02.80 Hypertension I10 (1) Closed right hip fracture Encounter type: initial encounter Qualified Code(s): S72.001A - Fracture of unspecified part of neck of right femur, initial encounter for closed fracture (2) Fall Encounter type: initial encounter Qualified Code(s): W19.XXXA - Unspecified fall, initial encounter (3) CAD (coronary artery disease) Coronary Disease-Associated Artery/Lesion type: craig artery [place] vs. transplanted heart: craig heart Associated angina: without angina Qualified Code(s): I25.10 - Atherosclerotic heart disease of craig coronary artery without angina pectoris (4) COPD (chronic obstructive pulmonary disease) COPD type: unspecified COPD Qualified Code(s): J44.9 - Chronic obstructive pulmonary disease, unspecified
[2023-08-30] MEDS: ACETAMINOPHEN 325 MG TAB PO SCH (18:23)
--- NOTE | 2023-08-30 18:34 | XRay Report ---
RIGHT FEMUR 3 VIEWS CLINICAL HISTORY: Postoperative examination. FINDINGS: AP, frog-leg, and crosstable lateral views of the right femur are correlated with radiograp hs dated 08/29/2023. The skeletal structures are osteopenic. There is an intertrochanteric and intrame dullary nail fixation of a comminuted intertrochanteric fracture of the right proximal femur. Near-an atomic alignment has been restored. A single cortical lag screw transfixes the distal end of the intr amedullary nail. The distal femur appears intact. The right hemipelvis is maintained. The right hip a nd knee joints are grossly preserved. Skin clips, subcutaneous gas, and soft tissue edema overlying t he operative sites represent expected postsurgical change. Brachytherapy implants project over the pr ostate gland. There is advanced atherosclerotic calcification of the right femoral artery. IMPRESSION: 1. Expected postoperative findings status post open reduction and internal fixation of a right femora l fracture. Near-anatomic alignment has been restored. 2. No new fracture is seen. Electronically signed by: Elfego Lemon M.D. 08/30/2023 6:32 PM
[2023-08-30] MEDS: ceFAZolin 2000MG 2,000 MG/15 ML SYR IV SCH (20:31)
[2023-08-30] MEDS: ASPIRIN 81 MG ECTAB PO SCH (20:36)
[2023-08-31] MEDS: LORazepam 1 MG TAB PO PRN (01:44)
[2023-08-31 07:02] LABS: Hematocrit (blood only) 25.7 % (42.0-52.0); Hemoglobin 8.1 g/dl (14.0-18.0); Mean Corpuscular Hemoglobin 29.9 pg (25.0-34.0); Mean Corpuscular Hgb Conc 31.5 g/dL (32.0-36.0); Mean Corpuscular Volume 94.8 fL (80.0-100.0); Mean Platelet Volume 10.5 fL (9.4-12.4); Platelet Count 99 K/uL (130-400); RDW Standard Deviation 44.4 fL (36.4-46.3); Red Blood Count 2.71 M/uL (4.70-6.10); White Blood Count 7.34 K/ul (4.8-10.8)
[2023-08-31 07:15] LABS: BUN Creatinine Ratio 21.7 (10-20); Calcium 8.9 mg/dl (8.6-10.3); Creatinine Clr Calc Pharmacy 37.4 ml/min; Est GFR (African American) 52.9 ml/min; Est GFR (Non-African American) 45.6 ml/min; Potassium 4.6 mmol/L (3.5-5.1)
[2023-08-31 08:04] LABS: Basophils # (auto) 0.01 K/uL (0.00-0.20); Basophils % (auto) 0.1 %; Eosinophils # (auto) 0.01 K/uL (0.00-0.50); Eosinophils % (auto) 0.1 %; Immature Granulocytes # (auto) 0.04 K/uL (0.01-0.20); Immature Granulocytes % (auto) 0.5 %; Lymphocytes # (auto) 0.75 K/uL (1.20-3.40); Lymphocytes % (auto) 10.2 %; Monocytes # (auto) 1.04 K/uL (0.11-0.59); Monocytes % (auto) 14.2 %; Neutrophils # (auto) 5.49 K/uL (1.40-6.50); Neutrophils % (auto) 74.9 %; Polychromasia 1+
--- NOTE | 2023-08-31 09:59 | Orthopedic Progress Note ---
Date of Service August 31, 2023 Assessment & Plan (1) Fracture, intertrochanteric, right femur: Plan: PT/OT Weightbearing as tolerated with walker and maximal assistance DVT prophylaxis with ESMER stockings and aspirin Pain control with p.o. pain medication Ice with easy wrap Proximal dressing was changed this morning Patient will most likely need placement in a fdc facility for care and rehab Medicine service his primary care provider for this patient From a orthopedic standpoint he is stable Patient will need to follow-up in our office in 2 weeks for staple removal and x-rays (appt scheduled for 09/20/2023 @ 10:30) Admission and Anticipated Discharge Date Admission Date: August 29, 2023 Subjective This 88-year-old male is day 1 status post open reduction internal fixation of his right intratrochanteric femoral neck fracture. Patient is minimally responsive this morning to verbal or palpable stimuli. Outer dressing was removed showing some saturation of the proximal most dressing. Review of Systems Review of Systems: Unobtainable due to reduced consciousness Physical Exam Physical Exam: Right hip: Patient moans with logroll testing. With assistance I was able to change his proximalmost dressing. I applied to nonstick nonadhesive pads over the incision site and kept these in place with Tegaderm dressings. The remaining dressings were clean dry and intact and not changed. Results & Data Vital Signs (Past 12 Hours) Vital Signs Temp Pulse Pulse Resp BP Pulse Ox Pulse Ox 08/31/23 08:01 37.3 C 80 18 106/46 L 95 08/31/23 04:30 93 08/31/23 04:18 36.5 C 78 19 101/53 L 93 08/30/23 23:00 36.4 C L 78 17 110/58 L 94 O2 Del Method O2 Del Method O2 Flow Rate 08/31/23 08:01 Oxymask 2 08/31/23 04:30 Room Air 08/31/23 04:18 Room Air 08/30/23 23:00 Room Air Diagnostic Findings Laboratory Results WBC 7.34 K/ul (4.8-10.8) 08/31/23 05:55 RBC 2.71 M/uL (4.70-6.10) L 08/31/23 05:55 Hgb 8.1 g/dl (14.0-18.0) L 08/31/23 05:55 Hct 25.7 % (42.0-52.0) L 08/31/23 05:55 MCV 94.8 fL (80.0-100.0) 08/31/23 05:55 MCH 29.9 pg (25.0-34.0) 08/31/23 05:55 MCHC 31.5 g/dL (32.0-36.0) L 08/31/23 05:55 RDW Std Deviation 44.4 fL (36.4-46.3) 08/31/23 05:55 RDW Coeff of [place] 13.0 % (11.5-14.5) 08/31/23 05:55 Plt Count 99 K/uL (130-400) L 08/31/23 05:55 MPV 10.5 fL (9.4-12.4) 08/31/23 05:55 Immature Gran % (Auto) 0.5 % 08/31/23 05:55 Neut % (Auto) 74.9 % 08/31/23 05:55 Lymph % (Auto) 10.2 % 08/31/23 05:55 [place] % (Auto) 14.2 % 08/31/23 05:55 Eos % (Auto) 0.1 % 08/31/23 05:55 Baso % (Auto) 0.1 % 08/31/23 05:55 Neut # (Auto) 5.49 K/uL (1.40-6.50) 08/31/23 05:55 Lymph # (Auto) 0.75 K/uL (1.20-3.40) L 08/31/23 05:55 [place] # (Auto) 1.04 K/uL (0.11-0.59) H 08/31/23 05:55 Eos # (Auto) 0.01 K/uL (0.00-0.50) 08/31/23 05:55 Baso # (Auto) 0.01 K/uL (0.00-0.20) 08/31/23 05:55 Immature Gran # (Auto) 0.04 K/uL (0.01-0.20) 08/31/23 05:55 Polychromasia 1+ 08/31/23 05:55 PT 11.5 Seconds (9.0-12.0) 08/29/23 15:38 INR 1.1 (0.9-1.1) 08/29/23 15:38 APTT 27 Seconds (21-31) 08/29/23 15:38 PTT Ratio 1.0 08/29/23 15:38 Sodium 140 mmol/L (136-145) 08/31/23 05:55 Potassium 4.6 mmol/L (3.5-5.1) 08/31/23 05:55 Chloride 105 mmol/L (98-107) 08/31/23 05:55 Carbon Dioxide 28 mmol/L (21-32) 08/31/23 05:55 Anion Gap 7 (3-11) 08/31/23 05:55 BUN 30 mg/dl (6-23) H 08/31/23 05:55 Creatinine 1.38 mg/dl (0.6-1.4) 08/31/23 05:55 Est Cr Clr Drug Dosing 37.4 ml/min 08/31/23 05:55 Est GFR ( Amer) 52.9 ml/min 08/31/23 05:55 Est GFR (Non-Af Amer) 45.6 ml/min 08/31/23 05:55 BUN/Creatinine Ratio 21.7 (10-20) H 08/31/23 05:55 Glucose 127 mg/dl (70-99(Fasting)) H 08/31/23 05:55 Calcium 8.9 mg/dl (8.6-10.3) 08/31/23 05:55 Total Bilirubin 0.4 mg/dl (0.2-1.0) 08/29/23 15:38 AST 18 U/L (13-39) 08/29/23 15:38 ALT 9 U/L (7-52) 08/29/23 15:38 Alkaline Phosphatase 49 U/L (34-104) 08/29/23 15:38 Total Protein 6.7 gm/dl (6.0-8.3) 08/29/23 15:38 Albumin 4.1 gm/dl (3.4-5.0) 08/29/23 15:38 Globulin 2.6 gm/dl (2.5-4.0) 08/29/23 15:38 Albumin/Globulin Ratio 1.6 (0.9-2) 08/29/23 15:38 25-OH Vitamin D Total 41.0 ng/ml (30-100) 08/31/23 05:55 Urine Color Yellow 08/29/23 17:03 Urine Appearance Clear (Clear) 08/29/23 17:03 Urine pH 6.5 (4.5-7.5) 08/29/23 17:03 Ur Specific [place] 1.018 (1.000-1.030) 08/29/23 17:03 Urine Protein Negative (Negative) 08/29/23 17:03 Urine Glucose (UA) Negative (Negative) 08/29/23 17:03 Urine Ketones Negative (Negative) 08/29/23 17:03 Urine Blood Negative (Negative) 08/29/23 17:03 Urine Nitrite Negative (Negative) 08/29/23 17: Urine Bilirubin Negative (Negative) 08/29/23 17:03 Urine Urobilinogen Negative (Negative) 08/29/23 17:03 Ur Leukocyte Esterase Negative (Negative) 08/29/23 17:03 Impressions Chest X-Ray 08/29/23 15:32 XR chest 1V not portable CLINICAL HISTORY: Confusion. COMPARISON STUDY: Chest CT January 09, 2019. Chest radiograph August 13, 2023. FINDINGS: This exam is mildly compromised given difficulty positioning. No pneumothorax or pleural effusion is present. Cardiomediastinal silhouette is stable. Skin folds project over the chest. Several old left-sided rib fractures are incidentally noted. There is no radiographic evidence for pulmonary edema. IMPRESSION: No acute cardiopulmonary findings. ACT 112: Negative or not required by law. Electronically signed by: Carlos Starr M.D. 08/29/2023 5:28 PM Ankle X-Ray 08/29/23 16:05 XR ankle LT 2V CLINICAL HISTORY: pain post fall COMPARISON: None FINDINGS: Alignment of the left ankle is anatomic. There is no acute fracture. Talar dome is intact. There are no osseous lesions. There is mild soft tissue swelling. IMPRESSION: No fracture or dislocation within the left ankle. ACT 112: Negative or not required by law. Electronically signed by: Carlos Starr M.D. 08/29/2023 5:[address] 08/29/23 16:05 CT OF THE CERVICAL SPINE WITHOUT CONTRAST CLINICAL HISTORY: midline neck pain COMPARISON STUDY: Cervical spine CT August 06, 2018. TECHNIQUE: Helical axial images of the cervical spine were obtained without IV contrast. Sagittal and coronal reconstructions were viewed. Automated exposure control was utilized for the study. A dose lowering technique was utilized adhering to the principles of ALARA. FINDINGS: Alignment of the cervical spine is anatomic. Vertebral body heights are maintained. No acute cervical spine fracture or subluxation is present. There is no prevertebral edema. Facet joints are intact. Moderate multilevel degenerative disc disease and facet arthrosis within the cervical spine is present. A 1.1 cm groundglass right upper lobe nodule is similar to CT of August 06, 2018. This remains indeterminate. IMPRESSION: No acute cervical spine fracture or subluxation. ACT 112: Negative or not required by law. Electronically signed by: Carlos Starr M.D. 08/29/2023 6:15 PM Foot X-Ray 08/29/23 16:05 XR foot LT 2V CLINICAL HISTORY: pain post fall COMPARISON: None FINDINGS: Evaluation of the toes is suboptimal given chronic deformities. However, no acute fractures are identified. Tarsometatarsal joints are grossly intact. No osseous lesions are identified. There is mild joint space narrowing and osteophytosis within multiple articulations of the left foot. IMPRESSION: No fractures identified within the left foot. ACT 112: Negative or not required by law. Electronically signed by: Carlos Starr M.D. 08/29/2023 5:34 PM Forearm X-Ray 08/29/23 16:05 XR forearm RT 2V CLINICAL HISTORY: pain post fall COMPARISON: None FINDINGS: No fractures are identified within the right radius or ulna. Radiocarpal joint space narrowing is noted. Alignment of the right elbow is anatomic. This exam is mildly compromised given difficulty positioning. IMPRESSION: No fractures within the right radius or ulna. ACT 112: Negative or not required by law. Electronically signed by: Carlos Starr M.D. 08/29/2023 5:[address] 08/29/23 16:05 CT OF THE HEAD WITHOUT CONTRAST CLINICAL HISTORY: fall, [facility] COMPARISON STUDY: Head CT August 06, 2018. TECHNIQUE: Helical axial images of the head were obtained without IV contrast. Automated exposure control was utilized for the study. A dose lowering technique was utilized adhering to the principles of ALARA. FINDINGS: This exam is mildly compromised by motion artifact. No acute intracranial hemorrhage, midline shift or mass effect is present. The ventricular system is stable. White matter hypodensity suggests small vessel disease. The basal cisterns are patent. No extra-axial collections are present. There are no findings to suggest acute dural sinus thrombosis or acute territorial infarct. No calvarial fractures are identified. There is mild mucosal thickening of the right maxillary sinus. IMPRESSION: 1. No acute intracranial findings. Exam mildly compromised by motion artifact. 2. No calvarial fractures. ACT 112: Negative or not required by law. Electronically signed by: Carlos Starr M.D. 08/29/2023 6:03 PM Hip/Pelvis X-Ray 08/29/23 16:05 XR hip KELLIE 2v w pelvis CLINICAL HISTORY: pain post fall COMPARISON STUDY: CT of the abdomen and pelvis August 06, 2018. FINDINGS: There is a healed intertrochanteric fracture of the left femur status post internal fixation. Brachytherapy seeds within the prostate are incidentally noted. There is an acute comminuted mildly displaced intertrochanteric fracture of the right femur. No acute pelvic fractures are present. There is a moderate amount of stool within the rectum. Bifurcated aortoiliac stent graft is partially imaged. IMPRESSION: Acute comminuted mildly displaced intertrochanteric fracture of the right femur. ACT 112: Negative or not required by law. Electronically signed by: Carlos Starr M.D. 08/29/2023 5:40 PM Wrist X-Ray 08/29/23 16:05 XR wrist RT 2V CLINICAL HISTORY: pain post fall COMPARISON: None FINDINGS: No acute fractures are identified. Moderate radiocarpal joint space narrowing is noted. There is associated osteophytosis. Exam is mildly compromised given difficulty positioning. IMPRESSION: 1. No acute fractures within the right wrist. 2. Moderate radiocarpal joint osteoarthritis. ACT 112: Negative or not required by law. Electronically signed by: Carlos Starr M.D. 08/29/2023 5:38 PM Femur X-Ray 08/30/23 13:26 RIGHT FEMUR 3 VIEWS CLINICAL HISTORY: Postoperative examination. FINDINGS: AP, frog-leg, and crosstable lateral views of the right femur are correlated with radiographs dated 08/29/2023. The skeletal structures are osteopenic. There is an intertrochanteric and intramedullary nail fixation of a comminuted intertrochanteric fracture of the right proximal femur. Near-anatomic alignment has been restored. A single cortical lag screw transfixes the distal end of the intramedullary nail. The distal femur appears intact. The right hemipelvis is maintained. The right hip and knee joints are grossly preserved. Skin clips, subcutaneous gas, and soft tissue edema overlying the operative sites represent expected postsurgical change. Brachytherapy implants project over the prostate gland. There is advanced atherosclerotic calcification of the right femoral artery. IMPRESSION: 1. Expected postoperative findings status post open reduction and internal fixation of a right femoral fracture. Near-anatomic alignment has been restored. 2. No new fracture is seen. Electronically signed by: Elfego Lemon M.D. 08/30/2023 6:32 PM
[2023-08-31] MEDS: amLODIPine BESYLATE 5 MG TAB PO SCH (10:25)
[2023-08-31] MEDS: FUROSEMIDE 20 MG TAB PO SCH (10:28)
[2023-08-31] MEDS: LOSARTAN POTASSIUM 25 MG TAB PO SCH (10:29)
--- NOTE | 2023-08-31 11:56 | Hospitalist Progress Note ---
Date of Service August 31, 2023 Assessment & Plan (1) Closed right hip fracture: Plan: He underwent open reduction internal fixation on August 29, with a long nail. Postoperative day #1. appreciate orthopedic consultation and recommendations. OT and PT assessments have been ordered. (2) Acute blood loss anemia: Plan: Hemoglobin 8.1 today, August 30. Will follow. Transfuse as necessary (3) Fall: Plan: Mechanical fall caused the right femur fracture. OT and PT assessments have been ordered (4) CAD (coronary artery disease): Plan: Stable. Continue current medical management. (5) COPD (chronic obstructive pulmonary disease): Plan: Stable. Continue current medical management. Nebulizer as needed (6) Depression: Plan: Stable continue his usual mirtazapine and citalopram (7) Alzheimer's dementia: Plan: Stable. Supportive care. IM Zyprexa as needed for agitation if it occurs (8) Hypertension: Plan: Stable. Continue current medical management Plan Anticipate eventual discharge to rehabilitation facility sometime early next week Admission and Anticipated Discharge Date Admission Date: August 29, 2023 Subjective Awake with severe baseline dementia. Vital signs are stable. Afebrile. Hemoglobin is down to 8.1 consistent with acute blood loss anemia related to the hip surgery. Will follow. Postoperative day #1 after open reduction internal fixation right hip fracture with a long femur nail. Review of Systems 2 Review of Systems: The patient is unable to answer any questions regarding review of systems due to severe baseline dementia Physical Exam 2 Physical Exam: General-awake but disoriented due to severe baseline dementia. No fever. HEENT-head atraumatic and normocephalic, pupils equal and reactive to light, extraocular muscles intact Neck-no lymphadenopathy or thyromegaly, trachea midline Chest-clear to auscultation anteriorly. No rales, wheezing or rhonchi Cardiac-regular rate and rhythm, normal S1 and S2 Abdomen-normal bowel sounds, nontender, no hepatosplenomegaly Extremities-no cyanosis, clubbing, or edema. Right upper leg surgical site is bandaged Neuro-cranial nerves II through XII intact, motor and sensory function within normal limits, strength symmetrical with generalized weakness consistent with age , no focal deficits Psych-baseline confusion due to severe dementia. Results & Data Results & Data Vital Signs (Past 12 Hours) Vital Signs Temp Pulse Pulse Resp BP Pulse Ox Pulse Ox 08/31/23 10:10 08/31/23 09:00 95 08/31/23 08:01 37.3 C 80 18 106/46 L 95 08/31/23 04:30 93 08/31/23 04:18 36.5 C 78 19 101/53 L 93 O2 Del Method O2 Del Method O2 Flow Rate O2 Flow Rate 08/31/23 10:10 Room Air 08/31/23 09:00 Oxymask 2 08/31/23 08:01 Oxymask 2 08/31/23 04:30 Room Air 08/31/23 04:18 Room Air Laboratory Results 08/31/23 05:55 08/31/23 05:55 PG Care Time/CCT Total # of Minutes Spent Total Time Spent with Patient: Total time spent is greater than 50% in coordination of care (as documented) at patient's floor/unit and/or counseling patient: Coding Level of Care Code 90199 SUB INP/OBS CARE 2/35MIN Diagnoses Closed right hip fracture S72.001A Encounter type: initial encounter Acute blood loss anemia D62 Fall W19.XXXA Encounter type: initial encounter Coronary artery disease involving [place] coronary artery of [place] heart without angina pectoris I25.10 Coronary Disease-Associated Artery/Lesion type: [place] artery [place] vs. transplanted heart: [place] heart Associated angina: without angina Chronic obstructive pulmonary disease, unspecified COPD type J44.9 COPD type: unspecified COPD Depression F32.A Alzheimer's dementia G30.9; F02.80 Hypertension I10 (1) Closed right hip fracture Encounter type: initial encounter Qualified Code(s): S72.001A - Fracture of unspecified part of neck of right femur, initial encounter for closed fracture (3) Fall Encounter type: initial encounter Qualified Code(s): W19.XXXA - Unspecified fall, initial encounter (4) CAD (coronary artery disease) Coronary Disease-Associated Artery/Lesion type: [place] artery [place] vs. transplanted heart: [place] heart Associated angina: without angina Qualified Code(s): I25.10 - Atherosclerotic heart disease of [place] coronary artery without angina pectoris (5) COPD (chronic obstructive pulmonary disease) COPD type: unspecified COPD Qualified Code(s): J44.9 - Chronic obstructive pulmonary disease, unspecified
[2023-08-31] MEDS: MoRPHine SULFATE 2 MG/ML CARP IV PRN (12:46)
[2023-09-01 07:43] LABS: BUN Creatinine Ratio 24.1 (10-20); Basophils # (auto) 0.02 K/uL (0.00-0.20); Basophils % (auto) 0.3 %; Calcium 8.6 mg/dl (8.6-10.3); Creatinine Clr Calc Pharmacy 38.8 ml/min; Eosinophils # (auto) 0.09 K/uL (0.00-0.50); Eosinophils % (auto) 1.4 %; Est GFR (African American) 55.3 ml/min; Est GFR (Non-African American) 47.7 ml/min; Immature Granulocytes # (auto) 0.03 K/uL (0.01-0.20); Immature Granulocytes % (auto) 0.5 %; Lymphocytes # (auto) 0.99 K/uL (1.20-3.40); Lymphocytes % (auto) 15.4 %; Mean Corpuscular Hemoglobin 30.6 pg (25.0-34.0); Mean Corpuscular Hgb Conc 33.3 g/dL (32.0-36.0); Mean Corpuscular Volume 91.9 fL (80.0-100.0); Mean Platelet Volume 11.1 fL (9.4-12.4); Monocytes # (auto) 0.71 K/uL (0.11-0.59); Monocytes % (auto) 11.1 %; Neutrophils # (auto) 4.58 K/uL (1.40-6.50); Neutrophils % (auto) 71.3 %; Platelet Count 85 K/uL (130-400); Potassium 4.2 mmol/L (3.5-5.1); RBC Morphology Unremarkable; RDW Coefficient of Variation 12.9 % (11.5-14.5); RDW Standard Deviation 43.2 fL (36.4-46.3); Red Blood Count 2.22 M/uL (4.70-6.10); White Blood Count 6.42 K/ul (4.8-10.8)
[2023-09-01 08:07] LABS: Hematocrit (blood only) 20.4 % (42.0-52.0); Hemoglobin 6.8 g/dl (14.0-18.0)
[2023-09-01] MEDS ORDERED: SODIUM CHLORIDE 0.9% 250 ML IV PRN (08:32)
[2023-09-01] MEDS: ACETAMINOPHEN 1,000 MG/100 ML VIAL IV STA (10:51)
--- NOTE | 2023-09-01 11:50 | Hospitalist Progress Note ---
Date of Service September 01, 2023 Assessment & Plan (1) Closed right hip fracture: Plan: He underwent open reduction internal fixation on August 29, with a long nail. Postoperative day #2. appreciate orthopedic consultation and recommendations. OT and PT assessments have been ordered. (2) Acute blood loss anemia: Plan: Hemoglobin has dropped further now up to 6.8. 2 units packed red blood cells are ordered. Will repeat H&H later today and monitor daily. (3) Fall: Plan: Mechanical fall caused the right femur fracture. OT and PT assessments have been ordered (4) CAD (coronary artery disease): Plan: Stable. Continue current medical management. (5) COPD (chronic obstructive pulmonary disease): Plan: Stable. Continue current medical management. Nebulizer as needed (6) Depression: Plan: Stable. Continue his usual mirtazapine and citalopram (7) Alzheimer's dementia: Plan: Stable. Supportive care. IM Zyprexa as needed for agitation if it occurs (8) Hypertension: Plan: Stable. Continue current medical management Plan Anticipate eventual discharge to rehabilitation facility sometime early next week Admission and Anticipated Discharge Date Admission Date: August 29, 2023 Subjective Awake but severe dementia at baseline. Hemoglobin is down to 6.8. 2 units packed red blood cells ordered today. Will repeat hemoglobin level again later this afternoon. Postoperative day #2 after open reduction internal fixation with long nail placed in the right femur on August 29. He is currently on room air and vital signs are stable. Review of Systems 2 Review of Systems: The patient is unable to answer any questions regarding review of systems due to severe baseline dementia Physical Exam 2 Physical Exam: General-awake but disoriented due to severe baseline dementia. No fever. HEENT-head atraumatic and normocephalic, pupils equal and reactive to light, extraocular muscles intact Neck-no lymphadenopathy or thyromegaly, trachea midline Chest-clear to auscultation anteriorly. No rales, wheezing or rhonchi Cardiac-regular rate and rhythm, normal S1 and S2 Abdomen-normal bowel sounds, nontender, no hepatosplenomegaly Extremities-no cyanosis, clubbing, or edema. Right upper leg surgical site is bandaged Neuro-cranial nerves II through XII intact, motor and sensory function within normal limits, strength symmetrical with generalized weakness consistent with age , no focal deficits Psych-baseline confusion due to severe dementia. Results & Data Results & Data Vital Signs (Past 12 Hours) Vital Signs Temp Pulse Resp BP Pulse Ox Pulse Ox O2 Del Method 09/01/23 11:33 38.2 C H 09/01/23 10:43 38.2 C H 09/01/23 10:00 Room Air 09/01/23 09:39 93/52 L 93 Room Air 09/01/23 08:11 36.9 C 79 18 100/60 95 Room Air 09/01/23 06:22 93 09/01/23 01:02 92 O2 Del Method 09/01/23 11:33 09/01/23 10:43 09/01/23 10:00 09/01/23 09:39 09/01/23 08:11 09/01/23 06:22 Room Air 09/01/23 01:02 Room Air Laboratory Results 09/01/23 06:29 09/01/23 06:29 PG Care Time/CCT Total # of Minutes Spent Total Time Spent with Patient: Total time spent is greater than 50% in coordination of care (as documented) at patient's floor/unit and/or counseling patient: Coding Level of Care Code 67433 SUB INP/OBS CARE 3/50MIN Diagnoses Closed right hip fracture S72.001A Encounter type: initial encounter Acute blood loss anemia D62 Fall W19.XXXA Encounter type: initial encounter Coronary artery disease involving [place] coronary artery of [place] heart without angina pectoris I25.10 Coronary Disease-Associated Artery/Lesion type: [place] artery [place] vs. transplanted heart: [place] heart Associated angina: without angina Chronic obstructive pulmonary disease, unspecified COPD type J44.9 COPD type: unspecified COPD Depression F32.A Alzheimer's dementia G30.9; F02.80 Hypertension I10 (1) Closed right hip fracture Encounter type: initial encounter Qualified Code(s): S72.001A - Fracture of unspecified part of neck of right femur, initial encounter for closed fracture (3) Fall Encounter type: initial encounter Qualified Code(s): W19.XXXA - Unspecified fall, initial encounter (4) CAD (coronary artery disease) Coronary Disease-Associated Artery/Lesion type: [place] artery [place] vs. transplanted heart: [place] heart Associated angina: without angina Qualified Code(s): I25.10 - Atherosclerotic heart disease of [place] coronary artery without angina pectoris (5) COPD (chronic obstructive pulmonary disease) COPD type: unspecified COPD Qualified Code(s): J44.9 - Chronic obstructive pulmonary disease, unspecified
[2023-09-01 18:30] LABS: Hematocrit (blood only) 28.6 % (42.0-52.0); Hemoglobin 9.2 g/dl (14.0-18.0)
[2023-09-02 07:12] LABS: Basophils # (auto) 0.02 K/uL (0.00-0.20); Basophils % (auto) 0.3 %; Eosinophils # (auto) 0.16 K/uL (0.00-0.50); Eosinophils % (auto) 2.4 %; Hematocrit (blood only) 25.7 % (42.0-52.0); Hemoglobin 8.5 g/dl (14.0-18.0); Immature Granulocytes # (auto) 0.03 K/uL (0.01-0.20); Immature Granulocytes % (auto) 0.5 %; Lymphocytes # (auto) 0.91 K/uL (1.20-3.40); Lymphocytes % (auto) 13.8 %; Mean Corpuscular Hgb Conc 33.1 g/dL (32.0-36.0); Mean Corpuscular Volume 87.7 fL (80.0-100.0); Mean Platelet Volume 10.7 fL (9.4-12.4); Monocytes # (auto) 0.67 K/uL (0.11-0.59); Monocytes % (auto) 10.2 %; Neutrophils # (auto) 4.79 K/uL (1.40-6.50); Neutrophils % (auto) 72.8 %; Platelet Count 102 K/uL (130-400); RDW Coefficient of Variation 15.5 % (11.5-14.5); RDW Standard Deviation 49.4 fL (36.4-46.3); Red Blood Count 2.93 M/uL (4.70-6.10); White Blood Count 6.58 K/ul (4.8-10.8)
[2023-09-02 07:17] LABS: BUN Creatinine Ratio 30.3 (10-20); Calcium 8.8 mg/dl (8.6-10.3); Creatinine Clr Calc Pharmacy 47.3 ml/min; Est GFR (African American) 70.4 ml/min; Est GFR (Non-African American) 60.7 ml/min
--- NOTE | 2023-09-02 16:10 | Hospitalist Progress Note ---
Date of Service September 02, 2023 Assessment & Plan (1) Closed right hip fracture: Plan: He underwent open reduction internal fixation on August 29, with a long nail. Postoperative day #3. Appreciate orthopedic consultation and recommendations. OT and PT assessments have been ordered. (2) Acute blood loss anemia: Plan: He received 2 units packed red blood cells yesterday, August 31, for hemoglobin 6.8. Hemoglobin improved to 9.2 yesterday after transfusion and this morning hemoglobin is 8.5. No overt bleeding seen. Serial labs. (3) Fall: Plan: Mechanical fall caused the right femur fracture. OT and PT assessments have been ordered (4) CAD (coronary artery disease): Plan: Stable. Continue current medical management. (5) COPD (chronic obstructive pulmonary disease): Plan: Stable. Continue current medical management. Nebulizer as needed (6) Alzheimer's dementia: Plan: Stable. Supportive care. IM Zyprexa as needed for agitation if it occurs (7) Hypertension: Plan: Stable. Continue current medical management Plan Anticipate eventual discharge to rehabilitation facility this week Admission and Anticipated Discharge Date Admission Date: August 29, 2023 Subjective Awake but severely demented and confused. He received 2 units packed red blood cells yesterday for hemoglobin 6.8. Hemoglobin improved to 9.2 and then this morning is 8.5. Will follow. Postoperative day #3 after open reduction internal fixation with long nail placed in the right femur fracture on August 29. He remains on room air. Vital signs are stable. He will probably need SNF placement before he can eventually return to [place] Review of Systems 2 Review of Systems: The patient is unable to answer any questions regarding review of systems due to severe baseline dementia Physical Exam 2 Physical Exam: General-awake but disoriented due to severe baseline dementia. No fever. HEENT-head atraumatic and normocephalic, pupils equal and reactive to light, extraocular muscles intact Neck-no lymphadenopathy or thyromegaly, trachea midline Chest-clear to auscultation anteriorly. No rales, wheezing or rhonchi Cardiac-regular rate and rhythm, normal S1 and S2 Abdomen-normal bowel sounds, nontender, no hepatosplenomegaly Extremities-no cyanosis, clubbing, or edema. Right upper leg surgical site is unremarkable Neuro-cranial nerves II through XII intact, motor and sensory function within normal limits, strength symmetrical with generalized weakness consistent with age , no focal deficits Psych-baseline confusion due to severe dementia. Results & Data Results & Data Vital Signs (Past 12 Hours) Vital Signs Temp Pulse Resp BP Pulse Ox Pulse Ox Pulse Ox 09/02/23 15:40 09/02/23 15:08 36.7 C 70 18 138/72 96 09/02/23 11:47 95 95 09/02/23 10:00 09/02/23 09:00 09/02/23 08:29 37.1 C 72 17 140/66 95 09/02/23 06:04 Pulse Ox O2 Del Method O2 Del Method O2 Flow Rate O2 Flow Rate 09/02/23 15:40 95 Room Air 09/02/23 15:08 Room Air 09/02/23 11:47 0 0 09/02/23 10:00 94 Room Air 09/02/23 09:00 Room Air 09/02/23 08:29 Room Air 09/02/23 06:04 97 Laboratory Results 09/02/23 06:32 09/02/23 06:32 PG Care Time/CCT Total # of Minutes Spent Total Time Spent with Patient: Total time spent is greater than 50% in coordination of care (as documented) at patient's floor/unit and/or counseling patient: Coding Level of Care Code 84966 SUB INP/OBS CARE 235MIN Diagnoses Closed right hip fracture S72.001A Encounter type: initial encounter Acute blood loss anemia D62 Fall W19.XXXA Encounter type: initial encounter Coronary artery disease involving [place] coronary artery of [place] heart without angina pectoris I25.10 Coronary Disease-Associated Artery/Lesion type: [place] artery [place] vs. transplanted heart: [place] heart Associated angina: without angina Chronic obstructive pulmonary disease, unspecified COPD type J44.9 COPD type: unspecified COPD Alzheimer's dementia G30.9; F02.80 Hypertension I10 (1) Closed right hip fracture Encounter type: initial encounter Qualified Code(s): S72.001A - Fracture of unspecified part of neck of right femur, initial encounter for closed fracture (3) Fall Encounter type: initial encounter Qualified Code(s): W19.XXXA - Unspecified fall, initial encounter (4) CAD (coronary artery disease) Coronary Disease-Associated Artery/Lesion type: [place] artery [place] vs. transplanted heart: [place] heart Associated angina: without angina Qualified Code(s): I25.10 - Atherosclerotic heart disease of [place] coronary artery without angina pectoris (5) COPD (chronic obstructive pulmonary disease) COPD type: unspecified COPD Qualified Code(s): J44.9 - Chronic obstructive pulmonary disease, unspecified
[2023-09-03 07:36] LABS: Basophils # (auto) 0.01 K/uL (0.00-0.20); Basophils % (auto) 0.2 %; Eosinophils # (auto) 0.26 K/uL (0.00-0.50); Eosinophils % (auto) 4.9 %; Hematocrit (blood only) 27.5 % (42.0-52.0); Hemoglobin 8.8 g/dl (14.0-18.0); Immature Granulocytes # (auto) 0.03 K/uL (0.01-0.20); Immature Granulocytes % (auto) 0.6 %; Lymphocytes # (auto) 0.89 K/uL (1.20-3.40); Lymphocytes % (auto) 16.8 %; Mean Corpuscular Hemoglobin 28.7 pg (25.0-34.0); Mean Corpuscular Volume 89.6 fL (80.0-100.0); Mean Platelet Volume 10.3 fL (9.4-12.4); Monocytes # (auto) 0.55 K/uL (0.11-0.59); Monocytes % (auto) 10.4 %; Neutrophils # (auto) 3.55 K/uL (1.40-6.50); Neutrophils % (auto) 67.1 %; Platelet Count 117 K/uL (130-400); RDW Standard Deviation 49.4 fL (36.4-46.3); Red Blood Count 3.07 M/uL (4.70-6.10); White Blood Count 5.29 K/ul (4.8-10.8)
[2023-09-03 08:10] LABS: Calcium 8.9 mg/dl (8.6-10.3); Creatinine Clr Calc Pharmacy 51.6 ml/min; Est GFR (African American) 78.1 ml/min; Est GFR (Non-African American) 67.4 ml/min; Potassium 3.9 mmol/L (3.5-5.1)
--- NOTE | 2023-09-03 09:09 | Orthopedic Progress Note ---
Date of Service September 03, 2023 Assessment & Plan (1) Fracture, intertrochanteric, right femur: Plan: Patient is having some discomfort with active assist hip range of motion which is expected Continue with PT/OT Weightbearing as tolerated with walker and maximal assistance DVT prophylaxis with ESMER stockings and aspirin Pain control with p.o. pain medication Ice with easy wrap Monitor dressings change prn Patient will most likely need placement in a half-way facility for care and rehab Medicine service his primary care provider for this patient From a orthopedic standpoint he is stable Patient will need to follow-up in our office in 2 weeks for staple removal and x-rays (appt scheduled for 09/20/2023 @ 10:30) Present on Admission?: Yes Admission and Anticipated Discharge Date Admission Date: August 29, 2023 Subjective Patient is a 88-year-old demented male who was seen bedside this a.m. He is alert and confused. Due to mental state he is unable to report any pain or concerns. Review of Systems Review of Systems: Unobtainable due to cognitive status Physical Exam Physical Exam: General: Alert confused, does not appear to be in distress. Integumentary/musculoskeletal: 3 dressings are intact negative for any drainage or soiling. Negative for edemaPatient does not appear to be in pain upon palpation however he does have some discomfort with logrolling. He is able to do active assist hip internal and external rotation with main complaints of pain in the groin. He is unable to do a straight leg raise without assistance. He is able to move his ankle up and down with tactile cues. His calf is soft and nontender. Right lower extremity is neurovascularly intact. Results & Data Vital Signs (Past 12 Hours) Vital Signs Temp Pulse Resp BP Pulse Ox Pulse Ox O2 Del Method 09/03/23 07:04 36.5 C 60 18 151/81 H 97 Room Air 09/03/23 05:11 98 09/03/23 01:39 95 09/02/23 21:17 Room Air 09/02/23 21:16 95 O2 Del Method 09/03/23 07:04 09/03/23 05:11 Room Air 09/03/23 01:39 Room Air 09/02/23 21:17 09/02/23 21:16 Room Air Laboratory Results 09/03/23 Range/Units 06:54 WBC 5.29 (4.8-10.8) K/ul RBC 3.07 L (4.70-6.10) M/uL Hgb 8.8 L (14.0-18.0) g/dl Hct 27.5 L (42.0-52.0) % MCV 89.6 (80.0-100.0) fL MCH 28.7 (25.0-34.0) pg MCHC 32.0 (32.0-36.0) g/dL RDW Std Deviation 49.4 H (36.4-46.3) fL RDW Coeff of [place] 15.0 H (11.5-14.5) % Plt Count 117 L (130-400) K/uL MPV 10.3 (9.4-12.4) fL Immature Gran % (Auto) 0.6 % Neut % (Auto) 67.1 % Lymph % (Auto) 16.8 % [place] % (Auto) 10.4 % Eos % (Auto) 4.9 % Baso % (Auto) 0.2 % Neut # (Auto) 3.55 (1.40-6.50) K/uL Lymph # (Auto) 0.89 L (1.20-3.40) K/uL [place] # (Auto) 0.55 (0.11-0.59) K/uL Eos # (Auto) 0.26 (0.00-0.50) K/uL Baso # (Auto) 0.01 (0.00-0.20) K/uL Immature Gran # (Auto) 0.03 (0.01-0.20) K/uL
[2023-09-03] MEDS: ACETAMINOPHEN 325 MG TAB PO SCH (11:39)
--- NOTE | 2023-09-03 20:52 | Hospitalist Progress Note ---
Date of Service September 03, 2023 Assessment & Plan (1) Closed right hip fracture: Plan: He underwent open reduction internal fixation on August 29, with a long nail. Dementia prohibits effective/meaningful rehab as he has a difficult time following instructions Appreciate orthopedic consultation and recommendations. Weightbearing as tolerated with walker and maximal assistance DVT prophylaxis with ESMER stockings and aspirin twice daily Continue pain control with Tylenol but I will increase it to 3 times a day scheduled Discontinue IV morphine as we need to see his pain management requirements orally prior to discharge Added oxycodone 5 Mg p.o. every 4 hours as needed for pain (2) Acute blood loss anemia: Plan: He received 2 units blood August 31, for hemoglobin 6.8. Blood loss from hip fracture and surgery itself Hemoglobin improved and remained stable at 8.8 No further lab draws needed, plan to go to personal care with hospice tomorrow (3) Fall: Plan: Mechanical fall caused the right femur fracture. Plan to go home with hospice at personal-care No rehab needed (4) CAD (coronary artery disease): Plan: Stable. Continue current medical management (5) COPD (chronic obstructive pulmonary disease): Plan: Stable. Continue current medical management. Nebulizer as needed (6) Alzheimer's dementia: Plan: Moderate to severe Supportive care Continue mirtazapine and citalopram for depression Plan to go home with hospice (7) Hypertension: Plan: Stable. Continue current medical management Plan DVT prophylaxis-aspirin twice daily Disposition-medically stable for discharge on 09/02. Family decided to bring the patient back to personal care with hospice and the personal-halfway is agreeable to this. Hopefully arrangements will be made for this to return there on 09/03 Admission and Anticipated Discharge Date Admission Date: August 29, 2023 Subjective Patient is pleasantly confused and has undressed himself in his bed with no covers on. At one point though, he does state "I am in the [facility] He denies pain Nursing reports that he is doing okay but did refuse breakfast this morning. He did self remove his IV site Physical Exam Constitutional: WD/WN, vitals as above Respiratory: normal respiratory effort, lungs clear to auscultation Cardiovascular: RRR, no murmur, no edema Gastrointestinal (Abdomen): normal bowel sounds, soft, nontender, no hepatosplenomegaly Musculoskeletal: Extremities: + extremities abnormal to inspection (Right hip with dressing in place clean dry and intact) Psychiatric: Orientation: alert, oriented to person, oriented to place and cooperative Results & Data Results & Data Vital Signs (Past 12 Hours) Vital Signs Temp Pulse Resp BP Pulse Ox O2 Del Method 09/03/23 13:56 36.4 C L 73 16 130/64 96 Room Air Laboratory Results CBC, BMP reviewed PG Care Time/CCT Total # of Minutes Spent Total Time Spent with Patient: Total time spent is greater than 50% in coordination of care (as documented) at patient's floor/unit and/or counseling patient: Coding Level of Care Code 92011 SUB INP/OBS CARE 06/07MIN Diagnoses Closed right hip fracture S72.001A Encounter type: initial encounter Acute blood loss anemia D62 Fall W19.XXXA Encounter type: initial encounter Coronary artery disease involving [place] coronary artery of [place] heart without angina pectoris I25.10 Coronary Disease-Associated Artery/Lesion type: [place] artery [place] vs. transplanted heart: [place] heart Associated angina: without angina Chronic obstructive pulmonary disease, unspecified COPD type J44.9 COPD type: unspecified COPD Alzheimer's dementia G30.9; F02.80 Hypertension I10 (1) Closed right hip fracture Encounter type: initial encounter Qualified Code(s): S72.001A - Fracture of unspecified part of neck of right femur, initial encounter for closed fracture (3) Fall Encounter type: initial encounter Qualified Code(s): W19.XXXA - Unspecified fall, initial encounter (4) CAD (coronary artery disease) Coronary Disease-Associated Artery/Lesion type: [place] artery [place] vs. transplanted heart: [place] heart Associated angina: without angina Qualified Code(s): I25.10 - Atherosclerotic heart disease of [place] coronary artery without angina pectoris (5) COPD (chronic obstructive pulmonary disease) COPD type: unspecified COPD Qualified Code(s): J44.9 - Chronic obstructive pulmonary disease, unspecified
[2023-09-03] MEDS: oxyCODONE HCL IR 5 MG TAB (IMMEDIATE RELEASE) PO PRN (21:43)
--- NOTE | 2023-09-04 19:38 | Hospitalist Progress Note ---
Date of Service September 04, 2023 Assessment & Plan (1) Closed right hip fracture: Plan: He underwent open reduction internal fixation on August 29, with a long nail. Dementia prohibits effective/meaningful rehab as he has a difficult time following instructions Appreciate orthopedic consultation and recommendations. Weightbearing as tolerated with walker and maximal assistance as desired, but is pursuing hospice and does not need to rehab if he chooses not to DVT prophylaxis with ESMER stockings and aspirin twice daily Continue pain control with Tylenol 3 times a day scheduled, discontinue p.o. oxycodone in favor of liquid Roxanol 5 mg every 4 hours for ease of administration No further lab draws needed (2) Acute blood loss anemia: Plan: He received 2 units blood August 31, for hemoglobin 6.8. Blood loss from hip fracture and surgery itself Hemoglobin improved and remained stable at 8.8 No further lab draws needed, plan to go to personal care with hospice tomorrow (3) Fall: Plan: Mechanical fall caused the right femur fracture. Plan to go home with hospice at personal-care No rehab needed (4) CAD (coronary artery disease): Plan: No acute issues (5) COPD (chronic obstructive pulmonary disease): Plan: Stable. Continue current medical management. Nebulizer as needed (6) Alzheimer's dementia: Plan: Moderate to severe Supportive care Continue mirtazapine and citalopram for depression Plan to go home with hospice (7) Hypertension: Plan: Blood pressures are normal In an effort to reduce pill burden on hospice, will discontinue losartan Continue amlodipine for now Discontinue Lasix (8) Prostate cancer: Plan: With a history of such with radiation seeds implanted and urinary retention Mckoy catheter to remain in place while going home on hospice as discussed with son on the phone Discontinue tamsulosin Plan DVT prophylaxis-aspirin twice daily Disposition-medically stable for discharge-plan is for patient to go back to personal care with hospice tomorrow Discussed his care with his son on the phone on 09/03 Admission and Anticipated Discharge Date Admission Date: August 29, 2023 Subjective Pt confused, restless, not able to tell me anything meaningful. Not able to state if he has pain or not. The physical therapist noted during therapy today that he was having trouble gripping the walker with his left hand, but when I saw him and when the nurse saw him through the day, he was moving his extremities equally with good strength. I discussed his care with his son on the phone I also discussed his care with case management social workershowplace manager Exam Constitutional: WD/WN, vitals as above Respiratory: normal respiratory effort, lungs clear to auscultation Cardiovascular: RRR, no murmur, no edema Gastrointestinal (Abdomen): normal bowel sounds, soft, nontender, no hepatosplenomegaly Musculoskeletal: Extremities: + extremities abnormal to inspection (Right hip with dressing in place clean dry and intact) Neurologic: Restless, confused Psychiatric: Orientation: alert; + not oriented x 3 Results & Data Results & Data Vital Signs (Past 12 Hours) Vital Signs Temp Pulse Resp BP Pulse Ox Pulse Ox O2 Del Method 09/04/23 17:00 95 09/04/23 15:41 36.6 C 73 18 120/64 91 Room Air 09/04/23 15:10 Room Air 09/04/23 09:00 94 O2 Del Method 09/04/23 17:00 Room Air 09/04/23 15:41 09/04/23 15:10 09/04/23 09:00 Room Air PG Care Time/CCT Total # of Minutes Spent Total Time Spent with Patient: Total time spent is greater than 50% in coordination of care (as documented) at patient's floor/unit and/or counseling patient: Coding Level of Care Code 41636 SUB INP/OBS CARE 2/35MIN Diagnoses Closed right hip fracture S72.001A Encounter type: initial encounter Acute blood loss anemia D62 Fall W19.XXXA Encounter type: initial encounter Coronary artery disease involving [place] coronary artery of [place] heart without angina pectoris I25.10 Associated angina: without angina Coronary Disease-Associated Artery/Lesion type: [place] artery [place] vs. transplanted heart: [place] heart Chronic obstructive pulmonary disease, unspecified COPD type J44.9 COPD type: unspecified COPD Alzheimer's dementia G30.9; F02.80 Hypertension I10 Prostate cancer C61 (1) Closed right hip fracture Encounter type: initial encounter Qualified Code(s): S72.001A - Fracture of unspecified part of neck of right femur, initial encounter for closed fracture (3) Fall Encounter type: initial encounter Qualified Code(s): W19.XXXA - Unspecified fall, initial encounter (4) CAD (coronary artery disease) Associated angina: without angina Coronary Disease-Associated Artery/Lesion type: [place] artery [place] vs. transplanted heart: [place] heart Qualified Code(s): I25.10 - Atherosclerotic heart disease of [place] coronary artery without angina pectoris (5) COPD (chronic obstructive pulmonary disease) COPD type: unspecified COPD Qualified Code(s): J44.9 - Chronic obstructive pulmonary disease, unspecified
[2023-09-04] MEDS ORDERED: MoRPHine SULFATE 10 MG/0.5 ML UDP PO PRN (19:58)
[2023-09-04 20:54] VITALS: O2SAT 92
[2023-09-05 07:23] VITALS: RESP 19; TEMP 98.4
--- NOTE | 2023-09-05 11:14 | Orthopedic Progress Note ---
Date of Service September 05, 2023 Assessment & Plan (1) Fracture, intertrochanteric, right femur: Plan: POD 6 - ORIF right hip with Dr. Irving Continue with PT/OT Weightbearing as tolerated with walker and maximal assistance DVT prophylaxis with ESMER stockings and aspirin Pain control with p.o. pain medication Ice with easy wrap Monitor dressings change prn Patient will most likely need placement in a retirement facility for care and rehab Medicine service his primary care provider for this patient From a orthopedic standpoint he is stable for discharge Patient will need to follow-up in our office in 2 weeks for staple removal and x-rays (appt scheduled for 09/20/2023 @ 10:30) Admission and Anticipated Discharge Date Admission Date: August 29, 2023 Subjective Resting in bed, sleeping, did no awaken. Physical Exam Musculoskeletal: Right hip dressings intact, clean and dry. Results & Data Vital Signs (Past 12 Hours) Vital Signs Temp Pulse Resp BP Pulse Ox O2 Del Method 09/05/23 07:22 36.9 C 92 H 19 117/64 92 Room Air
--- NOTE | 2023-09-05 11:29 | Discharge Summary ---
Discharge Summary Date of Service September 05, 2023 Notes For Next Care Provider Home to [facility] on hospice Medication Changes From Visit Added Roxanol 5mg po q4h prn pain or breathlessness Stopped Flomax, losartan,diazepam,lasix Increased APAP to 650mg po tid scheduled Increased ASA to 81mg po bid x 6 weeks Admission HPI Per Admitting Provider Chris Herrera is an 88 year old male who presents to the ER following an unwitnessed fall at [facility]. Unable to get any history from the patient due to dementia. His son at bedside reports he may have got up to use his walked and fallen in the dining [place]. He uses a walker at baseline and can walk 100 feet. He has progressive dementia but how he is currently is worse than usual. While in the ER patient has been throwing sheets at staff and grabbing a hold of staff uniforms. Trying to kick staff even with his broken leg. Principal Dx & Hospital Course #1 = Principal Diagnosis (1) Closed right hip fracture: He underwent open reduction internal fixation on August 29, with a long nail. Dementia prohibits effective/meaningful rehab as he has a difficult time following instructions Appreciate orthopedic consultation and recommendations. Weightbearing as tolerated with walker and maximal assistance as desired, but is pursuing hospice and does not need to rehab if he chooses not to DVT prophylaxis with ESMER stockings and aspirin twice daily Continue pain control with Tylenol 3 times a day scheduled, liquid Roxanol 5 mg every 4 hours for ease of administration for pain on hospice No further lab draws needed Can have heavenly removed at facility if possible to avoid f/u in office with Orthopedic surgery (2) Acute blood loss anemia: Received 2 units blood August 31, for hemoglobin 6.8. Blood loss from hip fracture and surgery itself Hemoglobin improved and remained stable at 8.8 No further lab draws needed, plan to go to personal care with hospice (3) Fall: Mechanical fall caused the right femur fracture. Plan to go home with hospice at personal-care No rehab needed (4) CAD (coronary artery disease): No acute issues continue ASA (5) COPD (chronic obstructive pulmonary disease): Stable morphine as needed for breathlessness (6) Alzheimer's dementia: Moderate to severe Supportive care Continue mirtazapine and citalopram for depression Plan to go home with hospice (7) Hypertension: Blood pressures are normal In an effort to reduce pill burden on hospice, will discontinue losartan, lasix Continue amlodipine for now (8) Prostate cancer: With a history of such with radiation seeds implanted and urinary retention Mckoy catheter to remain in place while going home on hospice as discussed with son on the phone Discontinue tamsulosin Plan DVT prophylaxis-aspirin twice daily Disposition-medically stable for discharge back to personal care with hospice Discussed his care with his son on the phone on 09/03 Discharge Exam Constitutional WD/WN, vitals as above Musculoskeletal Extremities: + extremities abnormal to inspection (Right hip with dressing in place clean dry and intact) Psychiatric Orientation: alert; + not oriented x 3 Updated Medication List Medication Instructions Recorded Confirmed Type acetaminophen 500 mg tablet 500 mg PO Q4H PRN Pain 09/26/18 08/29/23 History loperamide 2 mg capsule 2 mg PO Q12 PRN Diarrhea 09/22/21 08/29/23 History psyllium husk (with sugar) 3 1 tbsp PO DAILY PRN Constipation 09/22/21 08/29/23 History gram/7 gram oral powder (Metamucil (with sugar)) tamsulosin 0.4 mg capsule 0.4 mg PO QDD 09/22/21 08/29/23 History losartan 25 mg tablet 25 mg PO QAM #30 tabs 10/02/21 08/29/23 Rx acetaminophen 325 mg tablet 650 mg PO BIDM 3 GRAMS APAP/24 08/13/23 08/29/23 History (Tylenol) HOURS acetaminophen 650 mg rectal 650 mg MI Q4H PRN TEMP > 100.4 08/13/23 08/29/23 History suppository aluminum-mag hydroxide-simethicone 20 ml PO Q4H PRN 08/13/23 08/29/23 History 200 mg-200 mg-20 mg/5 mL oral susp IINDIGESTION/EPIGASTRIC PAIN (Antacid) amlodipine 2.5 mg tablet 2.5 mg PO QAM 08/13/23 08/29/23 History citalopram 10 mg tablet 10 mg PO QAM 08/13/23 08/29/23 History diazepam 5 mg/mL injection solution 5 mg PO Q8H PRN TERMINAL 08/13/23 08/29/23 History RESTLESSNESS furosemide 20 mg tablet (Lasix) 20 mg PO QAM 08/13/23 08/29/23 History mirtazapine 7.5 mg tablet 7.5 mg PO QDD 08/13/23 08/29/23 History ondansetron 4 mg disintegrating 4 mg translingual Q4H PRN 08/13/23 08/29/23 History tablet NAUSEA/VOMITING aspirin 81 mg tablet,delayed 81 mg PO BID #60 tabs 09/05/23 Rx release lorazepam 2 mg/mL oral concentrate 2 mg PO Q4H PRN Anxiety or 09/05/23 Rx agitation #30 mL morphine concentrate 100 mg/5 mL 5 mg (0.25 mL) PO Q4H PRN pain or 09/05/23 Rx (20 mg/mL) oral solution breathlessness #30 mL Hospital Stay Data Consultations 08/29/23 18:04 ED Decision to Admit Stat 08/29/23 18:20 Consult Orthopedic Surgery Routine Procedures Performed Operation Date: 08/30/23 10:30 Actual Procedures p Right Long Troch Nail(Right) - Lei Irving MD Diagnostic Imagining Performed 08/29/23 16:05 CT cervical spine wo con Stat CT head/brain wo con Stat 08/30/23 FL femur RT 2V Routine Pending Results Patient Have Any Pending Studies at Discharge: No Discharge Instructions Given to Patient (Per Discharging Provider) You were admitted with a hip fracture and had surgery to repair it. Due to your severe dementia, rehabilitation is difficult and you and your family have chosen to focus on comfort and enroll in hospice. You can take the liquid morphine as needed for pain or breathlessness, and the ativan as needed for agitation or anxiety. Your Mckoy catheter will remain in place for comfort. Some of your usual home medications were stopped to reduce the number of pills you take. Total Time Total Time Spent Total Time Spent (In Minutes): 35 min Coding Level of Care Code 73976 INP/OBS DISCH >30 MIN Diagnoses Closed right hip fracture S72.001A Encounter type: initial encounter Acute blood loss anemia D62 Fall [id number].XXXA Encounter type: initial encounter Coronary artery disease involving [place] coronary artery of [place] heart without angina pectoris I25.10 Associated angina: without angina Coronary Disease-Associated Artery/Lesion type: [place] artery [place] vs. transplanted heart: [place] heart Chronic obstructive pulmonary disease, unspecified COPD type J44.9 COPD type: unspecified COPD Alzheimer's dementia G30.9; F02.80 Hypertension I10 Prostate cancer C61
[2023-09-05 11:56] VITALS: BP 114/72; PULSE 68
== END 2023-09-05 12:20 | disposition hospice, home (50) | DRG 481 ==
LOC: ED 15:18 → 3N 18:52 → SUATTDRO 18:52 → 3N 21:12